=== PATIENT | female | born 1955 | race Caucasian/White ===

== ENCOUNTER 2019-04-18 09:23 | Emergency (ER) | payer OTHER, SELFPAY ==
--- NOTE | ~2019-04-18 | CT_ITS ---
EXAMINATION: CT abdomen pelvis w con EXAM DATE: 04/18/2019 10:27 INDICATION: Abdominal pain, history of gastroparesis. TECHNIQUE: Spiral CT of the abdomen and pelvis was performed following intravenous injection of 100 m L Omnipaque 350. Axial, coronal and sagittal images were reviewed. The dose-length product (DLP) fo r this examination was 1004.23 mGy-cm. The exposure was tailored according to patient size (auto mA exposure control), and iterative reconstruction (ASIR) was used as additional dose reduction techniqu e. Comparison is made to prior examination from 02/16/2018. FINDINGS: Small bilateral adrenal adenomas, largest on the left side measuring 1.2 cm. Liver, spleen, pancreas are unremarkable. There are cholecystectomy clips. Portal and splenic veins are patent. Kidneys enhance symmetrically. There is no hydronephrosis. The uterus is anteverted and morphologi dia normal. The bladder is unremarkable. There is no retroperitoneal or pelvic lymphadenopathy. There is moderate scattered arteriosclerotic disease. The appendix is normal. There is a duodenal diverticula measuring about 2 cm. There is expected jed unt of colonic stool. Rectosigmoid anastomosis. No free intraperitoneal gas. The heart is normal in size. There are no pericardial or pleural effusions. The lung bases are unremarkable. There are n o osteoblastic or osteolytic lesions identified. IMPRESSION: 1. No acute intra-abdominal findings. 2. Adrenal adenomas. 3. Rectosigmoid anastomosis. 4. Small duodenal diverticulum. Reviewed, dictated and finalized at location B. SHOP MANAGER
[2019-04-18 09:35] VITALS: BP 166/71; PULSE 86; RESP 16; TEMP 36.9; O2SAT 98
--- NOTE | 2019-04-18 09:41 | ECG_ITS ---
Measurements Intervals [place] Rate: 95 P: 76 NM: 135 QRS: 55 QRSD: 90 T: 55 QT: 355 QTc: 447 Interpretive Statements SINUS RHYTHM NORMAL ECG Electronically Signed On 04-18-2019 9:56:37 GRAIN PROCESSOR by Jesse Sanchez D.O.
[2019-04-18 09:59] LABS: Basophils Absolute Auto 0.1 K/mm3 (0.0-0.1); Basophils Percent Auto 1.3 % (0.2-1.2); Eosinophils Absolute Auto 0.1 K/mm3 (0-0.3); Eosinophils Percent Auto 1.4 % (0-4.4); Hematocrit 25.6 % (37.0-47.0); Hemoglobin 7.4 g/dL (12.0-15.0); Immature Granulocyte Absolute 0.05 K/mm3 (0.00-0.031); Immature Granulocyte Percent A 0.5 % (0-0.5); Lymphocytes Absolute Auto 0.98 K/mm3 (0.9-3.2); Lymphocytes Percent Auto 10.3 % (18.3-44.2); Mean Corpuscular HGB Conc 28.9 g/dl (32-36); Mean Corpuscular Hemoglobin 23.4 pg (26-34); Mean Platelet Volume 12.1 fl (7.4-10.4); Monocytes Absolute Auto 0.8 K/mm3 (0.1-0.6); Monocytes Percent Auto 8.4 % (2.6-8.5); Neutrophils Absolute Auto 7.5 K/mm3 (1.3-6.7); Neutrophils Percent Auto 78.1 % (45.5-73.1); Platelet Count Result 285 k/mm3 (150-375); Red Blood Count 3.16 M/mm3 (4.2-5.4); Red Cell Distribution Width 18.7 % (11.5-14.5); White Blood Count 9.6 K/mm3 (4.5-10.0)
[2019-04-18 10:10] LABS: Alanine Aminotransferase 18 U/L (4-35); Albumin Level 4.7 g/dL (3.5-5.1); Alkaline Phosphatase 84 U/L (38-126); Aspartate Amino Transferase 20 U/L (14-36); Bilirubin,Total 0.3 mg/dL (0.2-1.3); Blood Urea Nitrogen 12 mg/dL (7-17); Calcium 9.4 mg/dL (8.4-10.2); Carbon Dioxide 17 mmol/L (22-30); Chloride 103 mmol/L (98-107); Estimated Glomerular Filt Rate 50; Glucose 147 mg/dL (65-105); Lipase 165 U/L (23-300); Potassium 4.5 mmol/L (3.4-5.0); Sodium 137 mmol/L (137-145)
--- NOTE | 2019-04-18 10:11 | ED.GENADULT ---
HPI - General Adult General Chief complaint: Unspecified Stated complaint: Multiple complaints Time Seen by Provider: 04/18/19 09:56 Source: patient Mode of arrival: ambulatory Limitations: no limitations History of Present Illness HPI narrative: Patient is a 63-year-old female who presents to emergency department for evaluation of upper abdominal pain that began today noting severe aching pain that radiates into back between the scapula patient notes constant aching pain worse with activity has had similar occurrences in the past with no obvious etiology. Patient has had upper endoscopic and is followed by gastroenterology and has been told she has gastroparesis. Patient notes that this exacerbation is been worse and notes that the pain is worse she has nausea but denies emesis. Patient notes 1 loose stool today. Patient not taking anything for her symptoms and on arrival is tearful in the room. Related Data Home Medications Medication Instructions Recorded Confirmed alprazolam 0.25 mg tablet 0.25 mg PO BID 02/11/19 02/12/19 ferrous sulfate 325 mg (65 mg 325 mg PO TID 02/11/19 02/12/19 iron) tablet levothyroxine 100 mcg tablet 100 mcg PO DAILY 02/11/19 02/11/19 levothyroxine 125 mcg tablet 125 mcg PO DAILY 02/11/19 02/11/19 loratadine 10 mg tablet 10 mg PO DAILY 02/11/19 02/11/19 triamterene 37.5 1 tablet PO QAM 02/11/19 02/11/19 mg-hydrochlorothiazide 25 mg tablet Allergies Allergy/AdvReac Type Severity Reaction Status Date / Time strawberry Allergy Unknown Rash Verified 04/18/19 10:20 Review of Systems Review of Systems: Narrative: CONSTITUTIONAL: Denies fever, chills, or sweats. EYES: Denies redness, or discharge. ENT: Denies rhinorrhea, congestion, sore throat, or otalgia. CARDIOVASCULAR: Denies chest pain, palpitations, or edema. RESPIRATORY: Denies cough or dyspnea. GASTROINTESTINAL: Patient notes rectal bleeding but notes that it is chronic and unchanged. GENITOURINARY: Denies dysuria or hematuria. SKIN: Denies rash or itching. MUSCULOSKELETAL: Denies positive for myalgias NEUROLOGIC: Denies headache, dizziness, or weakness. PSYCHIATRIC: Positive for anxiety PMFSH Past Medical History Medical History (Updated 04/18/19 @ 12:21 by Diego Galindo PA-C) Anxiety Depression Gastroparesis Hyperlipidemia Hypertension Surgical History Surgical History (Updated 04/18/19 @ 10:20 by Diego Galindo PA-C) History of bowel resection History of colonoscopy History of endoscopy Family History Family History Mother Diabetes mellitus Hypertension Family history of lung cancer, Onset Age: 85 Patient's mother is Family history of type 2 diabetes mellitus Sibling Diabetes mellitus Family history of suicide Father Family history of malignant neoplasm of esophagus, Onset Age: 80 Patient's father is Other Depression Social History Social History Smoking status: Former smoker Second hand tobacco smoke exposure: No Smoking end date: 03/23/07 Alcohol intake: never Exam Narrative: Exam Narrative: GENERAL: Well-appearing, well-nourished, tearful HEAD: Normocephalic, atraumatic. EYES: PERRLA and EOMI. ENT: Nares clear, no rhinorrhea or epistaxis. Mucous membranes moist. Oropharynx without tonsillar hypertrophy exudate or other lesions. CHEST: Clear to auscultation. No respiratory distress. No wheezes rales or rhonchi HEART: Regular rate and rhythm. No murmur heard. Normal peripheral pulses. ABDOMEN: Soft, tenderness throughout the abdomen worse in the upper quadrants specifically the epigastrium, nondistended EXTREMITIES: Normal range of motion. No edema. SKIN: Warm, dry, no rash. NEURO: No focal deficits. Alert and oriented x3. Cranial nerves II through XII grossly intact PSYCH: Normal mood and affect. Course Course E
[2019-04-18 10:23] LABS: Hypochromasia 1+ (NORMAL); Ovalocytes 1+ (NORMAL); Platelet Estimate Adequate (Adequate); Poikilocytosis 1+ (NORMAL)
[2019-04-18] MEDS: LACTATED RINGERS 1,000 ML 999 ML IV CONT (10:40)
[2019-04-18] MEDS: FAMOTIDINE 20 MG/2 ML VIAL IV PUSH (10:42)
[2019-04-18] MEDS: LORAZEPAM INJ 2 MG/ML VIAL 1 MG IV PUSH (10:47)
[2019-04-18 11:31] LABS: Lactic Acid Reflex 1.7 mmol/L (0.7-2.1)
[2019-04-18 11:58] VITALS: BP 157/59; PULSE 80
[2019-04-18 11:59] VITALS: BP 167/75; BP 179/68; PULSE 85; PULSE 87
[2019-04-18 12:56] LABS: Add Urine Microscopic? YES; Appearance Urine Clear (Clear); Bacteria Urine Trace /hpf; Bilirubin Urine Negative (Negative); Blood Urine Negative (Negative); Color Urine Yellow (Yellow); Glucose Urine UA Negative (Negative); Ketones Urine Trace mg/dL (Negative); Leukocyte Esterase Ur Negative LEU/UL (Negative); Nitrate Urine Negative (Negative); Protein Urine 1+ mg/dL (Negative); RBC Urine 0-2 /hpf (0-2); Squamous Epithelial Cell Urine Many /hpf (Few); Urobilinogen Urine Negative mg/dL (<2.0); WBC Urine 0-3 /hpf
[2019-04-18 13:00] LABS: Specific Grav Ur > 1.060 (1.001-1.035)
[2019-04-18 13:40] VITALS: BP 150/92; PULSE 80; RESP 16; O2SAT 97
[2019-04-18] MEDS: HYOSCYAMINE SULFATE 0.125 MG TABLET PO (13:41)
--- NOTE | 2019-04-26 12:09 | PC.NURSE ---
100ML OF OFIRMEV INFUSED AT 1100 AND 1000MLS OF LR INFUSED AT 1145 ON APR 18 2019
== END 2019-04-18 13:40 | disposition home or self-care (01) ==
PROVIDERS: Emergency Medicine Emergency Medical Services; Emergency Provider Emergency Medicine; PCP Internal Medicine
DX: R10.10 Upper abdominal pain, unspecified (principal); D64.9 Anemia, unspecified; F41.9 Anxiety disorder, unspecified; F32.9 Major depressive disorder, single episode, unspecified; E78.5 Hyperlipidemia, unspecified; I10 Essential (primary) hypertension; K31.84 Gastroparesis; Z90.49 Acquired absence of other specified parts of digestive tract; Z87.891 Personal history of nicotine dependence; D35.02 Benign neoplasm of left adrenal gland; D35.01 Benign neoplasm of right adrenal gland
CPT/HCPCS: 36415; 74177; 80053; 81001; 83605; 83690; 85025; 86850; 86900; 86901; 93005; 96361; 96365; 96375; 99284; A9270; J0131; J2060; J7120; Q9967

== ENCOUNTER 2019-08-30 11:08 | Outpatient (CLI) | payer OTHER, SELFPAY ==
--- NOTE | ~2019-08-30 | US_ITS ---
EXAMINATION: US carotid duplex BI DATE: 08/30/2019 11:38 INDICATION: Carotid bruit TECHNIQUE: Grayscale, color Doppler, and pulsed Doppler images of the cervical carotid arteries were obtained. The degree of vessel stenosis is placed in one of the following categories: normal, <50%, 5 0-69%, >=70% but less than near-occlusion, near-occlusion, or total occlusion. Note that percent sten osis relative to normal distal artery lumen diameter is indirectly measured from velocity measurement s as described by Mt, et al. Radiology 2003; 229:340-346. Notes: Normal: Peak systolic velocity <125 centimeters/sec and no plaque <50%. Peak systolic velocity <125 ( EDV <40; ICA/CCA PSV ratio <2.0; used these factors only a tandem lesions or low cardiac output or co ntralateral disease) 50-69 %: PSV 125-230 (EDV 40-100; ratio 2-4) >= 70% but less than near occlusion: PSV greater than 230 (EDV > 100; ratio> 4.0) Near Occlusion: PSV that is variable; markedly narrowed lumen Occlusion: Absent flow on color/spectral Doppler and no lumen on cruz scale. COMPARISON: None. FINDINGS: RIGHT: The right common carotid artery (CCA) peak systolic velocity (PSV) is 99 cm/s. The right internal car otid artery (ICA) PSV is 131 cm/s. The right ICA end-diastolic velocity (EDV) is 28 cm/s. The right I CA/CCA PSV ratio is 1.3. The external carotid artery (ECA) PSV is 73 cm/s. There is antegrade flow in the right vertebral artery. LEFT: The left CCA PSV is 131 cm/s. The left ICA PSV is 138 cm/s. The left ICA EDV is 42 cm/s. The left ICA /CCA PSV ratio is 1.1. The ECA PSV is 95 cm/s. There is antegrade flow in the left vertebral artery. IMPRESSION: 1. 50-69% stenosis in the right internal carotid artery by sonographic criteria. 2. 50-69% stenosis in the left internal carotid artery by sonographic criteria. Reviewed, dictated and finalized at location A. IMPRESSION: 1. 50-69% stenosis in the right internal carotid artery by sonographic criteria . 2. 50-69% stenosis in the left internal carotid artery by sonographic criteria.
== END 2019-08-30 11:09 | disposition home or self-care (01) ==
PROVIDERS: PCP Internal Medicine; Visit Provider Internal Medicine
DX: R09.89 Other specified symptoms and signs involving the circulatory and respiratory systems (principal); I65.23 Occlusion and stenosis of bilateral carotid arteries
CPT/HCPCS: 93880

== ENCOUNTER 2019-10-18 22:37 | Inpatient (IN) | payer OTHER, SELFPAY ==
[2019-10-18 22:39] VITALS: BP 110/96; PULSE 75; RESP 29; TEMP 37; O2SAT 100
[2019-10-18 22:45] VITALS: PULSE 77
--- NOTE | 2019-10-18 22:59 | PC.NURSE ---
Pt does not give a specific area where she hurts just continues to state she hurts everywhere. The Pt is constantly moving all around bed and has left leg bent up while holding knee. Pt states shes been losing her balance lately and finding it hard to ambulate these last few months. Pt states shes been hurting since [place] but couldn't bare the pain anymore as of today, thus calling EMS.
--- NOTE | 2019-10-18 23:09 | ED.GENADULT ---
HPI - General Adult General Chief complaint: Unspecified Stated complaint: pain all over Time Seen by Provider: 10/18/19 22:51 History of Present Illness HPI narrative: History limited by poor historian She reports pain all over since February. She is not able to localize the pain. She does say that her legs are restless. She is scheduled to have imaging done tomorrow to further evaluate her pain. She says that she has not eaten in 5 days. She denies weakness, numbness, fever, vomiting, chest pain, SOB, dizziness, dark stools. Related Data Home Medications Medication Instructions Recorded Confirmed ferrous sulfate 325 mg (65 mg 325 mg PO TID 02/11/19 09/12/19 iron) tablet levothyroxine 100 mcg tablet 100 mcg PO DAILY 02/11/19 09/12/19 levothyroxine 125 mcg tablet 125 mcg PO DAILY 02/11/19 09/12/19 loratadine 10 mg tablet 10 mg PO DAILY 02/11/19 09/12/19 triamterene 37.5 1 tablet PO QAM 02/11/19 09/12/19 mg-hydrochlorothiazide 25 mg tablet aspirin 81 mg tablet,delayed 81 mg PO DAILY 08/31/19 09/12/19 release Allergies Allergy/AdvReac Type Severity Reaction Status Date / Time strawberry Allergy Unknown Rash Verified 04/18/19 10:20 Review of Systems Review of Systems: All systems reviewed & are unremarkable except as noted in HPI and below PMFSH Past Medical History Medical History Anxiety Depression Gastroparesis Hyperlipidemia Hypertension Surgical History Surgical History History of bowel resection History of colonoscopy History of endoscopy Family History Family History Mother Diabetes mellitus Hypertension Family history of lung cancer, Onset Age: 85 Patient's mother is Family history of type 2 diabetes mellitus Sibling Diabetes mellitus Family history of suicide Father Family history of malignant neoplasm of esophagus, Onset Age: 80 Patient's father is Other Depression Social History Social History Smoking status: Former smoker Second hand tobacco smoke exposure: No Smoking end date: 03/23/07 Alcohol intake: never Gender identity (if verbalized by the patient): Female Exam Const: General: alert and ill appearing Orientation/consciousness: patient oriented x3 Other: lethargic HENMT: Mouth: Yes dry mucous membranes Eyes: Conjunctivae: conjunctivae normal Pupils: Equal, round and reactive pupils present EOM: EOMs intact bilaterally Resp: Effort & Inspection: normal respiratory effort Auscultation: clear to auscultation bilaterally Cardio: Rate: regular rate Rhythm: regular rhythm GI: GI Palp: Yes Soft to palpation and No Tenderness to palpation present (GI) Skin: General skin exam: pallor Neuro: General: patient oriented x3, moves all extremities, no focal motor deficits and CN's II-XI intact bilaterally Speech: normal speech Extrem: General: no edema Psych: Affect: Anxious affect present Course Vital Signs Vital signs: Vital Signs Temperature 37.0 C 10/18/19 22:39 Pulse Rate 75 10/18/19 22:39 Respiratory Rate 29 H 10/18/19 22:39 Blood Pressure 110/96 H 10/18/19 22:39 Pulse Oximetry 100 10/18/19 22:39 Temperature 36.4 C L 10/19/19 02:39 Pulse Rate 74 10/19/19 02:39 Respiratory Rate 14 10/19/19 02:39 Blood Pressure 97/63 L 10/19/19 02:39 Pulse Oximetry 99 10/19/19 02:39 Medical Decision Making MDM Narrative Medical decision making narrative: She has nonspecific pain complaints. Very pale on exam. She has history of anemia. She does not know why she was anemic in he past. Denies GI bleed Discussed case with Dr. White. He will see her in the morning Medical Records Medical records reviewed: Yes I reviewed the patient's medical records. Edith
[2019-10-18 23:34] LABS: Basophils Percent Auto 0.2 % (0.2-1.2); Eosinophils Percent Auto 0.4 % (0-4.4); Immature Granulocyte Absolute 0.05 K/mm3 (0.00-0.031); Immature Platelet Fraction Pct 10.7 % (0.9-11.2); Lymphocytes Absolute Auto 0.97 K/mm3 (0.9-3.2); Lymphocytes Percent Auto 18.4 % (18.3-44.2); Mean Corpuscular HGB Conc 24.7 g/dl (32-36); Mean Corpuscular Volume 73.2 fl (80-100); Monocytes Absolute Auto 0.8 K/mm3 (0.1-0.6); Monocytes Percent Auto 15.8 % (2.6-8.5); Neutrophils Absolute Auto 3.4 K/mm3 (1.3-6.7); Neutrophils Percent Auto 64.2 % (45.5-73.1); Nucleated Red Blood Cells Absolute Auto 0.1 K/mm3 (0.0-0.012); Nucleated Red Blood Cells Perc 1.1 % (0.0-0.2); Platelet Count Result 242 k/mm3 (150-375); Red Blood Count 2.05 M/mm3 (4.2-5.4); Red Cell Distribution Width 24.2 % (11.5-14.5); White Blood Count 5.3 K/mm3 (4.5-10.0)
[2019-10-18 23:43] LABS: Ethanol < 10 mg/dL (<10); Hemoglobin 3.7 g/dL (12.0-15.0)
[2019-10-18 23:44] LABS: Hypochromasia 2+ (NORMAL); Ovalocytes 1+ (NORMAL); Platelet Estimate Adequate (Adequate); Target Cells 1+ (NORMAL)
[2019-10-18 23:45] LABS: Alanine Aminotransferase 31 U/L (4-35); Albumin Level 3.9 g/dL (3.5-5.1); Alkaline Phosphatase 80 U/L (38-126); Anion Gap 27.2 mmol/L (7-16); Aspartate Amino Transferase 49 U/L (14-36); Bilirubin,Total 0.8 mg/dL (0.2-1.3); Blood Urea Nitrogen 19 mg/dL (7-17); Calcium 8.6 mg/dL (8.4-10.2); Carbon Dioxide 10 mmol/L (22-30); Chloride 99 mmol/L (98-107); Creatine Kinase 406 U/L (30-135); Estimated CRCL calculation 37 ml/min; Estimated Glomerular Filt Rate 35; Glucose 107 mg/dL (65-105); Potassium 4.2 mmol/L (3.4-5.0); Sodium 132 mmol/L (137-145)
[2019-10-19] VITALS (35 sets, daily range): BP systolic 88–142; BP diastolic 35–78; PULSE 57–78; RESP 14–26; TEMP 36.2–37; O2SAT 94–100; BMI 30.9
[2019-10-19 00:04] LABS: Immature Reticulocyte Fraction 32.8 % (3.0-15.9); Reticulocyte Hemoglobin Conten 17.1 pg (28.2-35.7); Reticulocyte Percent 3.49 % (0.7-4.3); Reticulocytes Absolute 0.07 B/L (32.2-175.7)
[2019-10-19] MEDS: SODIUM CHLORIDE 0.9% IV 1,000 ML 999 ML IV CONT (00:07)
[2019-10-19 00:26] LABS: Iron 22 ug/dL (37-170)
[2019-10-19 00:35] LABS: Percent Iron Saturation 5 % (20-50)
[2019-10-19] MEDS: KETAMINE HCL 500 MG/10 ML VIAL 10 MG IV PUSH (00:37)
--- NOTE | 2019-10-19 00:56 | PC.NURSE ---
Blood pressure dropped into 80s over 60s, this nurse held fentanyl, made aware and given new orders.
[2019-10-19 01:15] LABS: Folic Acid 14.4 ng/mL (2.76->20); Vitamin B12 > 1000.0 pg/mL (239-931)
[2019-10-19] MEDS: SODIUM CHLORIDE 0.9% IV 250 ML 30 ML IV CONT ×2 (01:28→12:57)
--- NOTE | 2019-10-19 01:45 | PC.NURSE ---
Pt resting in room currently receiving blood due to low H&H, tolerating transfusion well. Vitals documented and stable.
--- NOTE | 2019-10-19 03:30 | ADMGEN ---
This patient, Nichole Olivares, was admitted to IMU Room 207-01. Patient/family oriented to hospital policies and general routines including ID bracelet, bed and alarms, visiting hours, pain management, procedures, bathroom and other care routines, personal items, smoking policy, room service/diet, and visiting hours. Valuables list has been completed. Information on how to activate the Rapid Response Team has been discussed. Patient/Family are encouraged to report perceived risks to care and to ask questions if they do not understand what they are told or what they should do.
--- NOTE | 2019-10-19 03:58 | PC.NURSE ---
Pt transferred to floor by this RN with blood transfusion hanging to gravity. Pt had no reaction to transfusion and was monitored entire time. Pt BP was 123/51 once arriving to IMU.
[2019-10-19] MEDS: TUBING, BLOOD PLUM PUMP TUBING 1 EACH XX ×2 (07:40→12:42)
[2019-10-19 09:17] LABS: Amphetamine Screen Urine Negative (Negative); Barbiturate Screen Urine Negative (Negative); Benzodiazepines Screen Urine Positive (Negative); Cannabinoid Screen Urine Positive (Negative); Cocaine Screen Urine Negative (Negative); Methadone Screen Urine Negative (Negative); Opiate Screen Urine Negative (Negative); Phencyclidine Screen Urine Negative (Negative)
[2019-10-19 09:38] LABS: Hematocrit 24.4 % (37.0-47.0); Hemoglobin 7.3 g/dL (12.0-15.0)
--- NOTE | 2019-10-19 10:51 | WPDGICN ---
Assessment and Plan Assessment and plan (1) MEY (iron deficiency anemia): Code(s): D50.9 - Iron deficiency anemia, unspecified Status: Acute Assessment and Plan: patient has profound anemia with iron deficient indices. No obvious signs of GI blood loss. Plan is to guaiac stools. Transfuse to a stable hemoglobin. Colonoscopy an EGD will be repeated in the morning. If this is not fruitful then small bowel series will be required. Hematology follow-up if GI studies initially negative. Will follow with you. (2) Obesity: Qualifiers: Obesity type: due to excess calories Obesity classification: adult class 1 (BMI 30 - 34.9) Serious obesity comorbidity presence: without serious comorbidity Body mass index: BMI 34.0-34.9 Qualified Code(s): E66.09 - Other obesity due to excess calories; Z68.34 - Body mass index (BMI) 34.0-34.9, adult Code(s): E66.9 - Obesity, unspecified Status: Acute (3) Diaz's esophagus with dysplasia: Code(s): K22.719 - Diaz's esophagus with dysplasia, unspecified Status: Acute Assessment and Plan: Patient known to have Diaz's esophagus. Plan is to monitor by EGD which will be accomplished in the morning. Rosalino be every 3 years has been accomplished in the past and will be continued to be required in the future. (4) Bipolar 1 disorder: Code(s): F31.9 - Bipolar disorder, unspecified Status: Acute (5) GERD without esophagitis: Code(s): K21.9 - Gastro-esophageal reflux disease without esophagitis Status: Acute (6) History of colon cancer: Code(s): Z85.038 - Personal history of other malignant neoplasm of large intestine Status: Acute Assessment and Plan: Colon cancer resected in 1998 felt to be cured. Will be re-evaluated by colonoscopy in the morning because of anemia. GI Consult Note Consult date/time: 10/19/19 10:51 HPI: Nichole Olivares is a 64 year old female seen in evaluation at the request of the emergency room, I am asked to see the patient because rather profound anemia and iron deficient indices. Patient states that she was in her usual state of health however over the last week has developed wrist severe pain in her legs. This progressed to the point she went to the emergency room last evening this is improved after overnight treatment. Patient was found to be profoundly anemic with a hemoglobin of 3.7. patient denies any obvious signs of GI blood loss. She states her bowel habits remain normal. She denies any bruising. She has had no nose bleeds. She notes no blood in her urine. Her family history is noncontributory. Past medical history is significant for colon cancer resected in 1998. She has had previous bouts of iron deficiency. In 2018 had significant bleeding from hemorrhoids. Previous endoscopy includes a finding of Diaz's esophagus most recently 2019. She has a concomitant hiatal hernia is felt to have underlying acid reflux disease currently she has no heartburn. She states at 1 point had a small bowel capsule study that was unremarkable. Family history is noncontributory is no known history of colon or rectal disease. Review of Systems Review of Systems: All systems reviewed & are unremarkable except as noted in HPI and below PMFSH Past Medical History Medical History Anxiety Depression Gastroparesis Hyperlipidemia Hypertension Surgical History Surgical History History of bowel resection History of colonoscopy History of endoscopy Family History Family History Mother Diabetes mellitus Hypertension Family history of lung cancer, Onset Age: 85 Patient's mother is Family history of type 2 diabetes mellitus Sibling Diabetes mellitus Family history of suicide Fa
[2019-10-19] MEDS: PEG (High)/E-LYTE SOLN 4,000 ML BTL 4000 ML PO (11:14)
[2019-10-19] MEDS: FERROUS SULFATE 324 MG TABLET PO ×2 (13:28→16:51)
[2019-10-19 13:43] LABS: Add Urine Microscopic? YES; Appearance Urine Clear (Clear); Bilirubin Urine Negative (Negative); Blood Urine Negative (Negative); Color Urine Yellow (Yellow); Glucose Urine UA Negative (Negative); Hyaline Casts Urine 20-29 /lpf; Ketones Urine Negative (Negative); Leukocyte Esterase Ur Negative LEU/UL (Negative); Mucus Urine Rare /lpf; Nitrate Urine Negative (Negative); Protein Urine Negative (Negative); RBC Urine 0-2 /hpf (0-2); Squamous Epithelial Cell Urine Few /hpf (Few)
[2019-10-19 13:53] LABS: Immunochemical Fecal Occult Bl Negative (N)
[2019-10-19 13:54] LABS: IFOB Positive Control Positive
--- NOTE | 2019-10-19 15:30 | PM.IMHP ---
H&P: HPI History of Present Illness Chief complaint: iron deficiency anemia Narrative: Nichole Olivares is a 64 year old female admitted with low hb, pt denies any rectal bleeding or hematemesis. 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 pt felt ill and felt her body was weak, weaknes in her thigh muscles. pt has a history of gastropearesis. pt was a previous smoker quit in 2007. pt takes toradol and ibuprofen for pain. pt denies any abdominal pain but does get constipation at times. pt has history of depression barretes and gastropesis Review of Systems Review of Systems: All systems reviewed & are unremarkable except as noted in HPI and below ROS unobtainable: Yes other (muscle weakness, ill feeling weakness all over ) COUNTS INCLUDE 234 BEDS AT THE [facility] Family History Family History Mother Diabetes mellitus Hypertension Family history of lung cancer, Onset Age: 85 Patient's mother is Family history of type 2 diabetes mellitus Sibling Diabetes mellitus Family history of suicide Father Family history of malignant neoplasm of esophagus, Onset Age: 80 Patient's father is Other Depression Social History Social History Smoking status: Former smoker Tobacco type: cigarettes Second hand tobacco smoke exposure: No Smoking end date: 03/23/07 Alcohol intake: never Substance use: never Substance use type: does not use Gender identity (if verbalized by the patient): Female Spiritual care concerns: No Meds Home Medications and Allergies Home Medications Medication Instructions Recorded Confirmed Type fluoxetine 20 mg tablet 20 mg PO DAILY #90 tablet 02/10/19 10/19/19 Rx ferrous sulfate 325 mg (65 mg 325 mg PO TID 02/11/19 10/19/19 History iron) tablet loratadine 10 mg tablet 10 mg PO DAILY PRN 02/11/19 10/19/19 History lovastatin 40 mg tablet 40 mg PO QPM #90 tablet 02/11/19 10/19/19 Rx Women's Multivitamin 1 tablet PO DAILY 10/19/19 10/19/19 History ascorbic acid (vitamin C) [Vitamin 500 mg PO DAILY 10/19/19 10/19/19 History C] calcium carbonate-vitamin D3 1 tablet PO DAILY 10/19/19 10/19/19 History [Calcium 600 + D(3)] escitalopram oxalate 10 mg PO DAILY 10/19/19 10/19/19 History lamotrigine [Lamictal] 75 mg PO BID 10/19/19 10/19/19 History lisinopril 10 mg PO QPM 10/19/19 10/19/19 History zolpidem 5 mg PO HS PRN 10/19/19 10/19/19 History pantoprazole 40 mg PO Q12HR 30 Days #60 tablet 10/21/19 Rx Allergies Allergy/AdvReac Type Severity Reaction Status Date / Time strawberry Allergy Unknown Rash Verified 10/21/19 10:29 Vital Signs Vital Signs - 24 hr 10/18/19 22:39 10/18/19 22:45 10/19/19 00:02 Temperature 37.0 C Pulse Rate 75 77 74 Respiratory Rate 29 H 26 H Blood Pressure 110/96 H 88/54 L Pulse Oximetry 100 100 10/19/19 00:58 10/19/19 01:21 10/19/19 01:39 Temperature 36.6 C 36.3 C L Pulse Rate 78 73 69 Respiratory Rate 22 H 21 H 16 Blood Pressure 101/78 113/65 103/53 L Pulse Oximetry 99 97 96 10/19/19 01:40 10/19/19 02:39 10/19/19 03:11 Temperature 36.4 C L Pulse Rate 69 74 66 Respiratory Rate 18 14 Blood Pressure 103/53 L 97/63 L Pulse Oximetry 94 99 10/19/19 03:17 10/19/19 03:39 10/19/19 03:49 Temperature 36.5 C 36.5 C 36.4 C Pulse Rate 65 65 72 Respiratory Rate 20 20 21 H Blood Pressure 106/39 L 106/39 L 97/63 L Pulse Oximetry 99 98 99 10/19/19 03:59 10/19/19 04:00 10/19/19 04:15 Temperature 36.2 C L 36.2 C L Pulse Rate 63 61 63 Respiratory Rate 20 20 Blood Pressure 117/58 L 99/45 L Pulse Oximetry 99 98 10/19/19 05:15 10/19/19 06:00 10/19/19 06:15 Temperature 36.6 C 36.3 C L Pulse Rate 61 59 L 62 Respiratory Rate 20 20 Blood Pressure 101/46 L 112/45 L Pulse Oximetry 97 98 10/19/19 06:26 10/19/19 06:40 10/19/19 07:40 Temperature 36.3 C L 36.4 C L 36.
[2019-10-19] MEDS: lamoTRIgine 25 MG TABLET 75 MG PO (16:51)
[2019-10-19] MEDS: PANTOPRAZOLE 40 MG TABLET PO (16:52)
[2019-10-19 19:27] LABS: Hemoglobin 9.4 g/dL (12.0-15.0)
[2019-10-19 19:42] LABS: Anion Gap 17.5 mmol/L (7-16); Blood Urea Nitrogen 15 mg/dL (7-17); Calcium 8.4 mg/dL (8.4-10.2); Carbon Dioxide 16 mmol/L (22-30); Chloride 101 mmol/L (98-107); Estimated CRCL calculation 68 ml/min; Estimated Glomerular Filt Rate > 60; Glucose 109 mg/dL (65-105); Potassium 3.5 mmol/L (3.4-5.0); Sodium 131 mmol/L (137-145)
[2019-10-19] MEDS: POTASSIUM CHLORIDE 20 MEQ TABLET PO (21:14)
[2019-10-20] VITALS (15 sets, daily range): BP systolic 115–158; BP diastolic 40–74; PULSE 68–82; RESP 20–24; TEMP 36.1–37.7; O2SAT 94–99
[2019-10-20 01:21] LABS: Hematocrit 27.7 % (37.0-47.0); Hemoglobin 8.7 g/dL (12.0-15.0)
--- NOTE | 2019-10-20 07:16 | WPDGIPROGNO ---
Progress Note: A&P Additional Plan Patient comfortable this morning. Unable to tolerate preparation for colonoscopy. She reports no obvious bleeding. Denies abdominal pain. Back pain noted on presentation has improved. Physical exam reveals patient to be alert. Vital signs are stable. Lungs are clear. Heart without murmur. Abdomen bowel sounds are present soft nontender with no organomegaly. Labs reveal stool to be Hemoccult negative. Hemoglobin 8.7 after transfusion. Iron indices are consistent with iron deficiency. Impression 1. Profound microcytic anemia iron deficient anemia by iron indices. Plan is for EGD today. Colonoscopy tomorrow with alternate prep today. 2. History of Diaz's esophagus. History of GE reflux disease plan is to continue proton pump inhibitors. Further recommendations after endoscopy. 3. History of colon cancer.. Plan to reassess with colonoscopy tomorrow after additional preparation today. 4. Bipolar Subjective Date/time seen: 10/20/19 07:16 Objective Data Vital Signs Vital Signs: Vital Signs - 24 hr 10/19/19 07:40 10/19/19 08:00 10/19/19 08:45 Temperature 97.8 F 97.8 F 98.3 F Pulse Rate 58 L 67 57 L Respiratory Rate 18 18 16 Blood Pressure 116/48 L 116/48 L 126/54 L Pulse Oximetry 97 97 96 10/19/19 10:00 10/19/19 11:12 10/19/19 11:27 Temperature 97.7 F 97.6 F Pulse Rate 57 L 57 L 57 L Respiratory Rate 16 16 Blood Pressure 120/47 L 108/47 L Pulse Oximetry 99 96 10/19/19 11:30 10/19/19 12:00 10/19/19 12:20 Temperature 97.7 F 97.8 F 97.8 F Pulse Rate 58 L 57 L 57 L Respiratory Rate 18 18 18 Blood Pressure 120/47 L 132/64 132/64 Pulse Oximetry 99 100 100 10/19/19 13:36 10/19/19 14:00 10/19/19 16:00 Temperature 98 F 98.6 F Pulse Rate 57 L 59 L 63 Respiratory Rate 16 18 Blood Pressure 123/65 141/61 H Pulse Oximetry 100 100 10/19/19 18:00 10/19/19 18:52 10/19/19 20:00 Temperature 98.2 F Pulse Rate 70 78 76 Respiratory Rate 16 Blood Pressure 142/55 H Pulse Oximetry 98 0729/20 21:56 10/19/19 23:54 10/20/19 00:00 Temperature 97.9 F Pulse Rate 76 72 73 Respiratory Rate 20 Blood Pressure 115/43 L Pulse Oximetry 94 10/20/19 01:57 10/20/19 04:00 10/20/19 06:00 Temperature 97 F L Pulse Rate 74 71 77 Respiratory Rate 22 H Blood Pressure 131/40 L Pulse Oximetry 96 Intake/Output Intake/Output: Intake & Output 10/17/19 10/18/19 10/19/19 10/20/19 23:59 23:59 23:59 23:59 Intake Total 4081 Output Total 900 Balance 3181 Meds/Results Medications: Active Medications Generic Name Dose Route Start Last Admin Trade Name Freq PRN Reason Stop Dose Admin Amlodipine Besylate 2.5 mg 10/20/19 09:00 Norvasc PO QAM [facility] Ascorbic Acid 500 mg 10/20/19 09:00 Vitamin C PO DAILY [facility] Escitalopram Oxalate 10 mg 10/20/19 09:00 Lexapro PO DAILY INGRID Ferrous Sulfate 324 mg 10/19/19 12:00 10/19/19 16:51 Ferrous Sulfate PO 324 mg TIDWM INGRID Administration Fluoxetine HCl 20 mg 10/20/19 09:00 Prozac PO DAILY [facility] Lamotrigine 75 mg 10/19/19 17:00 10/19/19 16:51 Lamictal PO 75 mg BID INGRID Administration Pantoprazole Sodium 40 mg 10/19/19 17:00 10/19/19 16:52 Protonix PO 40 mg BID INGRID Administration Zolpidem Tartrate 5 mg 10/19/19 11:43 Ambien PO HS PRN Sleep Labs Labs: Laboratory Results - last 24 hr 10/18/19 10/19/19 10/19/19 23:54 08:06 08:44 Hgb Hct Sodium Potassium Chloride Carbon Dioxide Anion Gap BUN Creatinine Estim Creat Clear Calc Estimated GFR Glucose Calcium Urine Color Yellow Urine Appearance Clear Urine pH 5.0 Ur Specific [place] 1.020 Urine Protein Negative Urine Glucose (UA) Negative Urine Ketones Negative Ur Blood (Man) Negative Urine Nitrate Negative Urine Bilirubin Negative Urine Urobilinog
--- NOTE | 2019-10-20 09:58 | PM.IMPN ---
Progress Note: A&P Assessment and Plan (1) Anemia: Qualifiers: Anemia type: iron deficiency Iron deficiency anemia type: unspecified iron deficiency Qualified Code(s): D50.9 - Iron deficiency anemia, unspecified Code(s): D64.9 - Anemia, unspecified Status: Acute Assessment and Plan: Acute on chronic profound anemia with Hgb 3.7 on arrival now s/p 4 units packed RBC this admission. She has seen Dr Petit in the past for iron deficiency anemia. GI evaluations in the past have revealed internal hemorrhoids; some malabsorption could be playing a role given her prior anastomosis/resection from colon cancer 1998. Appreciate Dr White recommendations - plan is for EGD today and possibly colonoscopy tomorrow. Continue protonix BID and TID iron supplementation. H&H low but stable today, Medically she is stable to transfer out of IMU after endoscopy pending results. (2) Diaz's esophagus with dysplasia: Code(s): K22.719 - Diaz's esophagus with dysplasia, unspecified Status: Chronic Assessment and Plan: EGD in the past showed Diaz's esophagus. Appreciate GI recommendations. Continue protonix BID. (3) Essential hypertension: Code(s): I10 - Essential (primary) hypertension Status: Chronic Assessment and Plan: Stable, last 128/45. Lisinopril was held due to elevated creatinine. Blood pressures stable so far without it but will monitor. Continue home norvasc. (4) Chronic kidney disease, stage 3 (moderate): Code(s): N18.3 - Chronic kidney disease, stage 3 (moderate) Status: Acute Assessment and Plan: Creatinine improved today. Will monitor. (5) Obesity: Qualifiers: Body mass index: BMI 34.0-34.9 Obesity classification: adult class 1 (BMI 30 - 34.9) Obesity type: due to excess calories Serious obesity comorbidity presence: without serious comorbidity Qualified Code(s): E66.09 - Other obesity due to excess calories; Z68.34 - Body mass index (BMI) 34.0-34.9, adult Code(s): E66.9 - Obesity, unspecified Status: Chronic Assessment and Plan: Recommend lifestyle modifications for weight loss. Subjective Date/time seen: 10/20/19 09:00 Interval history: Ms. Olivares is a 64 yo F admitted for profound anemia. She reports feeling a little better today. Poor appetite, and has not really been eating or drinking lately. She reports she was not really able to tolerate the colonoscopy prep yesterday and had nausea and vomiting. BMs this morning were loose and brown but not clear, per patient. She reports some heartburn but denies chest pain or shortness of breath. No nausea or vomiting today. She reports she often sees red blood with BMs/wiping which she attributes to hemorrhoids. Review of Systems Review of Systems: Narrative: Twelve systems were reviewed with pertinent positives and negatives as per HPI. Exam Narrative: Exam Narrative: General: Patient resting comfortably in bed in no acute distress. HEENT: Normocephalic, EOMI, oral mucosa moist. Cardiovascular: Rate and rhythm are regular. Respiratory: Lungs clear to auscultation in all [place]. Respirations are even and nonlabored. Tolerating room air. Abdomen: Soft, some mild diffuse tenderness to palpation without guarding, bowel sounds present, no masses palpable. Extremities: Peripheral pulses intact. No edema. Neuro: No focal neurological deficits. Speech is clear. Objective Data Vital Signs Vital Signs: Last Vital Signs Temp 100 F H 10/20/19 09:55 Pulse 70 10/20/19 09:55 Resp 20 10/20/19 09:55 BP 128/45 L 10/20/19 09:55 Pulse Ox 94 10/20/19 09:55 Intake/Output Intake/Output: Intake & Output 10/17/19 10/18/19 10/19/19 10/20/19 23:59 23:59 23:59 23:59 Intake Total 4081 Output Tota
[2019-10-20] MEDS: LACTATED RINGERS 1,000 ML 150 ML IV CONT (10:01)
--- NOTE | 2019-10-20 10:14 | WPDANESEPPF ---
Anes - Initial Pre Proc Eval Procedure: Operation Date: 10/20/19 10:00 Proposed Procedures p Esophagogastroduodenoscopy - Oseas White MD Date/Time: 10/20/19 10:14 Surgeon: SABINE Willingham Pre Op Diagnosis: iron deficiency anemia Patient Data Age: 64 Gender: F Height: 5 ft 5 in Weight: 86 kg Last Vital Signs Temp 100 F H 10/20/19 09:55 Pulse 70 10/20/19 09:55 Resp 20 10/20/19 09:55 BP 128/45 L 10/20/19 09:55 Pulse Ox 94 10/20/19 09:55 Allergies Allergy/AdvReac Type Severity Reaction Status Date / Time strawberry Allergy Unknown Rash Verified 04/18/19 10:20 Home Medications Medication Instructions Recorded Confirmed Type fluoxetine 20 mg tablet 20 mg PO DAILY #90 tablet 02/10/19 10/19/19 Rx ferrous sulfate 325 mg (65 mg 325 mg PO TID 02/11/19 10/19/19 History iron) tablet loratadine 10 mg tablet 10 mg PO DAILY PRN 02/11/19 10/19/19 History lovastatin 40 mg tablet 40 mg PO QPM #90 tablet 02/11/19 10/19/19 Rx ketorolac 10 mg tablet 10 mg PO DAILY PRN 30 Days #90 04/08/19 10/19/19 Rx tablet ascorbic acid (vitamin C) [Vitamin 500 mg PO DAILY 10/19/19 10/19/19 History C] calcium carbonate-vitamin D3 1 tablet PO DAILY 10/19/19 10/19/19 History [Calcium 600 + D(3)] escitalopram oxalate 10 mg PO DAILY 10/19/19 10/19/19 History esomeprazole magnesium 40 mg PO BID 10/19/19 10/19/19 History lamotrigine [Lamictal] 75 mg PO BID 10/19/19 10/19/19 History lisinopril 10 mg PO QPM 10/19/19 10/19/19 History ky-db-[id number]-[id number]-Ca carb-vit K 1 tablet PO DAILY 10/19/19 10/19/19 History [Women's Multivitamin] zolpidem 5 mg PO HS PRN 10/19/19 10/19/19 History Laboratory Tests 10/18/19 10/19/19 10/19/19 23:54 08:06 13:33 Hgb Hct Sodium Potassium Chloride Carbon Dioxide Anion Gap BUN Creatinine Estim Creat Clear Calc Estimated GFR Glucose Calcium Urine Color Yellow (Yellow) Urine Appearance Clear (Clear) Urine pH 5.0 (5.0-9.0) Ur Specific [place] 1.020 (1.001-1.035) Urine Protein Negative mg/dL mg/dL (Negative) Urine Glucose (UA) Negative mg/dL mg/dL (Negative) Urine Ketones Negative mg/dL mg/dL (Negative) Ur Blood (Man) Negative (Negative) Urine Nitrate Negative (Negative) Urine Bilirubin Negative (Negative) Urine Urobilinogen 2.0 mg/dL H mg/dL (<2.0) Leukocyte Esterase Rfl Negative DIANNE/UL DIANNE/UL (Negative) Urine RBC 0-2 /hpf /hpf (0-2) Urine WBC 7-9 /hpf H /hpf Ur Squamous Epith Cells Few /hpf /hpf (Few) Hyaline Casts 20-29 /lpf H /lpf (None) Urine Mucus Rare /lpf /lpf Stl Occult Blood (IFOB) Negative (N) Blood Type B Positive Antibody Screen Negative Crossmatch See Detail 10/19/19 10/19/19 10/20/19 19:22 19:22 01:11 Hgb 9.4 g/dL L g/dL 8.7 g/dL L g/dL (12.0-15.0) (12.0-15.0) Hct 30.0 % L % 27.7 % L % (37.0-47.0) (37.0-47.0) Sodium 131 mmol/L L mmol/L (137-145) Potassium 3.5 mmol/L mmol/L (3.4-5.0) Chloride 101 mmol/L mmol/L (98-107) Carbon Dioxide 16 mmol/L L mmol/L (22-30) Anion Gap 17.5 mmol/L H mmol/L (7-16) BUN 15 mg/dL mg/dL (7-17) Creatinine 0.80 mg/dL mg/dL (0.7-1.0) Estim Creat Clear Calc 68 ml/min ml/min Estimated GFR > 60 (59 - ) Glucose 109 mg/dL H mg/dL (65-105) Calcium 8.4 mg/dL mg/dL (8.4-10.2) Urine Color Urine Appearance Urine pH Ur Specific [place] Urine Protein Urine Glucose (UA) Urine Ketones Ur Blood (Ma
[2019-10-20] MEDS: BISACODYL 5 MG TABLET EC 10 MG PO ×3 (14:10→21:09)
[2019-10-20] MEDS: PANTOPRAZOLE 40 MG TABLET PO ×2 (14:12→21:09)
[2019-10-20] MEDS: FERROUS SULFATE 324 MG TABLET PO ×3 (14:12→17:26)
[2019-10-20] MEDS: amLODIPine BESYLATE 2.5 MG TABLET PO (14:13)
[2019-10-20] MEDS: ASCORBIC ACID 500 MG TABLET PO (14:13)
[2019-10-20] MEDS: FLUoxetine HCL 20 MG CAPSULE PO (14:13)
[2019-10-20] MEDS: lamoTRIgine 25 MG TABLET 75 MG PO ×2 (14:13→17:26)
[2019-10-20] MEDS: ESCITALOPRAM OXALATE 10 MG TABLET PO (14:13)
[2019-10-20] MEDS: SIMETHICONE 80 MG TAB.CHEW 160 MG PO ×2 (14:16→21:09)
[2019-10-20] MEDS: polyethylene glycoL 3350 238 GM BOTTLE PO (14:18)
--- NOTE | 2019-10-20 15:09 | PC.NURSE ---
This patient, Nichole Olivares, was received from IMU on 10/20/19 at 1509. Personal belongings list checked and signed. Patient/family oriented to unit policies and routines. Report received from HARRY Mccray.
--- NOTE | 2019-10-20 16:07 | PC.NURSE ---
Transferred Patient to room 251 @ 15:02with all belongings, Gave report to Brissa.
--- NOTE | 2019-10-20 16:08 | PC.NURSE ---
This patient, Nichole Olivares, was transferred to [[facility] ] on 10/20/19 at 1502. Personal belongings sent with patient. Belongings list checked and signed with receiving [ ]. Report given to [ Brissa]. Appropriate documentation sent with patient.
[2019-10-21] VITALS (7 sets, daily range): BP systolic 98–152; BP diastolic 44–58; PULSE 68–79; RESP 14–22; TEMP 36.4–37.3; O2SAT 93–99
[2019-10-21 05:26] LABS: Basophils Percent Auto 0.9 % (0.2-1.2); Eosinophils Absolute Auto 0.1 K/mm3 (0-0.3); Eosinophils Percent Auto 1.7 % (0-4.4); Hematocrit 28.7 % (37.0-47.0); Hemoglobin 8.9 g/dL (12.0-15.0); Immature Granulocyte Absolute 0.07 K/mm3 (0.00-0.031); Lymphocytes Absolute Auto 0.59 K/mm3 (0.9-3.2); Lymphocytes Percent Auto 17.1 % (18.3-44.2); Mean Corpuscular Hemoglobin 24.5 pg (26-34); Mean Corpuscular Volume 78.8 fl (80-100); Monocytes Absolute Auto 0.5 K/mm3 (0.1-0.6); Monocytes Percent Auto 15.4 % (2.6-8.5); Neutrophils Absolute Auto 2.2 K/mm3 (1.3-6.7); Neutrophils Percent Auto 62.9 % (45.5-73.1); Nucleated Red Blood Cells Perc 0.9 % (0.0-0.2); Platelet Count Result 141 k/mm3 (150-375); Red Blood Count 3.64 M/mm3 (4.2-5.4); Red Cell Distribution Width 22.5 % (11.5-14.5); White Blood Count 3.5 K/mm3 (4.5-10.0)
[2019-10-21 05:54] LABS: Blood Urea Nitrogen 3 mg/dL (7-17); Calcium 8.1 mg/dL (8.4-10.2); Carbon Dioxide 20 mmol/L (22-30); Chloride 104 mmol/L (98-107); Estimated CRCL calculation 76 ml/min; Estimated Glomerular Filt Rate > 60; Glucose 113 mg/dL (65-105); Magnesium 1.8 mg/dL (1.6-2.3); Sodium 131 mmol/L (137-145)
--- NOTE | 2019-10-21 07:56 | WPDANESPN ---
Anes - Prog Note Post-Op Date/Time: 10/21/19 07:56 Cardiovascular status: normal Respiratory status: normal Airway patency: baseline Mental status: baseline Post-Op hydration status: normal Vital Signs: Last Vital Signs Temp 36.7 C 10/21/19 06:00 Pulse 79 10/21/19 06:00 Resp 18 10/21/19 06:00 BP 127/48 L 10/21/19 06:00 Pulse Ox 93 10/21/19 06:00 I/O: Intake & Output 10/20/19 10/20/19 10/21/19 15:59 23:59 07:59 Intake Total 100 600 0 Output Total 450 Balance -350 600 0 Laboratory Tests 10/21/19 05:04 10/21/19 05:04 10/21/19 10/21/19 05:04 05:04 WBC 3.5 L RBC 3.64 L Hgb 8.9 L Hct 28.7 L MCV 78.8 L D MCH 24.5 L D MCHC 31.0 L RDW 22.5 H Plt Count 141 L MPV TNP Immature Gran % (Auto) 2.0 H Neut % (Auto) 62.9 Lymph % (Auto) 17.1 L [place] % (Auto) 15.4 H Eos % (Auto) 1.7 Baso % (Auto) 0.9 Lymph # (Auto) 0.59 L [place] # (Auto) 0.5 Eos # (Auto) 0.1 Baso # (Auto) 0.0 Abs Immat Gran (auto) 0.07 H Absolute Neuts (auto) 2.2 Absolute Nucleated RBC 0.0 Nucleated RBC % 0.9 H % Immature Plt Fraction 12.0 H Sodium 131 L Potassium 3.0 L Chloride 104 Carbon Dioxide 20 L Anion Gap 10.0 BUN 3 L D Creatinine 0.70 Estim Creat Clear Calc 76 Estimated GFR > 60 Glucose 113 H Calcium 8.1 L Magnesium 1.8 Microbiology 10/19/19 08:06 Urine Clean Catch Urine Culture - Final Post-procedural complaints: none Patient Feedback: Patient satisfied with anesthetic care.
--- NOTE | 2019-10-21 08:36 | WPDANESEPPF ---
Anes - Initial Pre Proc Eval Procedure: Operation Date: 10/20/19 10:00 Proposed Procedures p Esophagogastroduodenoscopy - Oseas White MD Operation Date: 10/21/19 11:00 Proposed Procedures p Colonoscopy - Oseas White MD Date/Time: 10/21/19 08:36 Surgeon: SABINE Willingham Pre Op Diagnosis: iron deficiency anemia Patient Data Age: 64 Gender: F Height: 1.65 m Weight: 85.7 kg Last Vital Signs Temp 36.7 C 10/21/19 06:00 Pulse 79 10/21/19 06:00 Resp 18 10/21/19 06:00 BP 127/48 L 10/21/19 06:00 Pulse Ox 93 10/21/19 06:00 Allergies Allergy/AdvReac Type Severity Reaction Status Date / Time strawberry Allergy Unknown Rash Verified 10/21/19 10:29 Home Medications Medication Instructions Recorded Confirmed Type fluoxetine 20 mg tablet 20 mg PO DAILY #90 tablet 02/10/19 10/19/19 Rx ferrous sulfate 325 mg (65 mg 325 mg PO TID 02/11/19 10/19/19 History iron) tablet loratadine 10 mg tablet 10 mg PO DAILY PRN 02/11/19 10/19/19 History lovastatin 40 mg tablet 40 mg PO QPM #90 tablet 02/11/19 10/19/19 Rx ketorolac 10 mg tablet 10 mg PO DAILY PRN 30 Days #90 04/08/19 10/19/19 Rx tablet ascorbic acid (vitamin C) [Vitamin 500 mg PO DAILY 10/19/19 10/19/19 History C] calcium carbonate-vitamin D3 1 tablet PO DAILY 10/19/19 10/19/19 History [Calcium 600 + D(3)] escitalopram oxalate 10 mg PO DAILY 10/19/19 10/19/19 History esomeprazole magnesium 40 mg PO BID 10/19/19 10/19/19 History lamotrigine [Lamictal] 75 mg PO BID 10/19/19 10/19/19 History lisinopril 10 mg PO QPM 10/19/19 10/19/19 History nc-[id number]-Ca carb-vit K 1 tablet PO DAILY 10/19/19 10/19/19 History [Women's Multivitamin] zolpidem 5 mg PO HS PRN 10/19/19 10/19/19 History Laboratory Tests 10/21/19 10/21/19 05:04 05:04 WBC 3.5 K/mm3 L K/mm3 (4.5-10.0) RBC 3.64 M/mm3 L M/mm3 (4.2-5.4) Hgb 8.9 g/dL L g/dL (12.0-15.0) Hct 28.7 % L % (37.0-47.0) MCV 78.8 fl L D fl (80-100) MCH 24.5 pg L D pg (26-34) MCHC 31.0 g/dl L g/dl (32-36) RDW 22.5 % H % (11.5-14.5) Plt Count 141 k/mm3 L k/mm3 (150-375) MPV TNP Immature Gran % (Auto) 2.0 % H % (0-0.5) Neut % (Auto) 62.9 % % (45.5-73.1) Lymph % (Auto) 17.1 % L % (18.3-44.2) [place] % (Auto) 15.4 % H % (2.6-8.5) Eos % (Auto) 1.7 % % (0-4.4) Baso % (Auto) 0.9 % % (0.2-1.2) Lymph # (Auto) 0.59 K/mm3 L K/mm3 (0.9-3.2) [place] # (Auto) 0.5 K/mm3 K/mm3 (0.1-0.6) Eos # (Auto) 0.1 K/mm3 K/mm3 (0-0.3) Baso # (Auto) 0.0 K/mm3 K/mm3 (0.0-0.1) Abs Immat Gran (auto) 0.07 K/mm3 H K/mm3 (0.00-0.031) Absolute Neuts (auto) 2.2 K/mm3 K/mm3 (1.3-6.7) Absolute Nucleated RBC 0.0 K/mm3 K/mm3 (0.0-0.012) Nucleated RBC % 0.9 % H % (0.0-0.2) % Immature Plt Fraction 12.0 % H % (0.9-11.2) Sodium 131 mmol/L L mmol/L (137-145) Potassium 3.0 mmol/L L mmol/L (3.4-5.0) Chloride 104 mmol/L mmol/L (98-107) Carbon Dioxide 20 mmol/L L mmol/L (22-30) Anion Gap 10.0 mmol/L mmol/L (7-16) BUN 3 mg/dL L D mg/dL (7-17) Creatinine 0.70 mg/dL mg/dL (0.7-1.0) Estim Creat Clear Calc 76 ml/min ml/min Estimated GFR > 60 (59 - ) Glucose 113 mg/dL H mg/dL (65-105) Calcium 8.1 mg/dL L mg/dL (8.4-10.2) Magnesium 1.8 mg/dL mg/dL (1.6-2.3) Patient hx anesthesia problems: none Family hx anesthesia problems: none PMFSH Family History Family History Mother Diabetes mellitus Hypertension Family history of lung cancer, Onset Age: 85 Patient's mother is Family history of type 2 diabetes mellitus Sibling Diabetes mellitus Family history of suicide Father Family history of malignant neoplasm of esophagus, On
--- NOTE | 2019-10-21 10:00 | PM.IMPN ---
Progress Note: A&P Assessment and Plan (1) Anemia: Qualifiers: Anemia type: iron deficiency Iron deficiency anemia type: unspecified iron deficiency Qualified Code(s): D50.9 - Iron deficiency anemia, unspecified Code(s): D64.9 - Anemia, unspecified Status: Acute Assessment and Plan: Acute on chronic profound anemia with Hgb 3.7 on arrival now s/p 4 units packed RBC this admission. She has seen Dr Petit in the past for iron deficiency anemia and has history of colon cancer with resection in [address]. Apprec[address] White recommendations - EGD yesterday showed hiatal hernia and reflux esophagitis. Continue protonix and iron supplementation. Colonoscopy today. (2) Diaz's esophagus with dysplasia: Code(s): K22.719 - Diaz's esophagus with dysplasia, unspecified Status: Chronic Assessment and Plan: EGD in the past showed Diaz's esophagus. EGD yesterday with erosive esophagitis. Continue protonix. (3) Essential hypertension: Code(s): I10 - Essential (primary) hypertension Status: Chronic Assessment and Plan: BPs reviewed. Lisinopril was held due to elevated creatinine but will add it back now that Cr is improved and BPs are intermittently elevated. Continue home norvasc. (4) Chronic kidney disease, stage 3 (moderate): Code(s): N18.3 - Chronic kidney disease, stage 3 (moderate) Status: Acute Assessment and Plan: Creatinine improved today. Will monitor. (5) Obesity: Qualifiers: Obesity type: due to excess calories Obesity classification: adult class 1 (BMI 30 - 34.9) Serious obesity comorbidity presence: without serious comorbidity Body mass index: BMI 34.0-34.9 Qualified Code(s): E66.09 - Other obesity due to excess calories; Z68.34 - Body mass index (BMI) 34.0-34.9, adult Code(s): E66.9 - Obesity, unspecified Status: Chronic Assessment and Plan: Recommend lifestyle modifications for weight loss. Subjective Date/time seen: 10/21/19 0945 Interval history: Ms. Olivares is a 64 yo F admitted for profound anemia. She reports feeling a bit bloated and nauseous but overall feeling better than when she came in. No vomiting. She notes bowel movements this morning have a bit of red blood. She describes she does have a history of hemorrhoids and it is not uncommon for her to notice red blood on tissue with wiping, but this morning she notes red blood in the toilet. She denies chest pain or shortness of breath. Review of Systems Review of Systems: Narrative: Twelve systems were reviewed with pertinent positives and negatives as per HPI. Exam Narrative: Exam Narrative: General: Patient resting supine in bed in no acute distress. HEENT: Normocephalic, EOMI, oral mucosa moist. Cardiovascular: Rate and rhythm are regular. Respiratory: Lungs clear to auscultation in all [place]. Respirations are even and nonlabored. Tolerating room air. Abdomen: Soft, no point tenderness to palpation, bowel sounds present, no masses palpable. Extremities: Peripheral pulses intact. No edema. Neuro: No focal neurological deficits. Speech is clear. Objective Data Vital Signs Vital Signs: Last Vital Signs Temp 99.1 F 10/21/19 10:30 Pulse 72 10/21/19 10:30 Resp 18 10/21/19 10:30 BP 152/58 H 10/21/19 10:30 Pulse Ox 97 10/21/19 10:30 Intake/Output Intake/Output: Intake & Output 10/18/19 10/19/19 10/20/19 10/21/19 23:59 23:59 23:59 23:59 Intake Total 4081 700 0 Output Total 900 450 Balance 3181 250 0 Meds/Results Medications: Active Medications Generic Name Dose Route Start Last Admin Trade Name Freq PRN Reason Stop Dose Admin Amlodipine Besylate 2.5 mg 10/20/19 09:00 10/20/19 14:13 Norvasc PO 2.5 mg QAM INGRID Administration Asc
--- NOTE | 2019-10-21 10:12 | PC.NURSE ---
Addendum entered by Mc Clarke RN 10/21/19 12:24: IV access saline locked. Potassium infusion paused. Original Note: To GI Lab per belinda, IV infusing potassium chloride. Report given to HARRY Rodriguez.
[2019-10-21] MEDS: LACTATED RINGERS 1,000 ML 150 ML IV CONT (10:34)
[2019-10-21 11:47] LABS: Glucose Point of Care 104 (65-105)
--- NOTE | 2019-10-21 12:10 | PC.NURSE ---
Returned from GI Lab. Report received from HARRY Thompson.
[2019-10-21] MEDS: PANTOPRAZOLE 40 MG TABLET PO (12:15)
[2019-10-21] MEDS: lamoTRIgine 25 MG TABLET 75 MG PO (12:15)
[2019-10-21] MEDS: ESCITALOPRAM OXALATE 10 MG TABLET PO (12:15)
[2019-10-21] MEDS: amLODIPine BESYLATE 2.5 MG TABLET PO (12:16)
[2019-10-21] MEDS: ASCORBIC ACID 500 MG TABLET PO (12:16)
[2019-10-21] MEDS: FLUoxetine HCL 20 MG CAPSULE PO (12:16)
[2019-10-21] MEDS: FERROUS SULFATE 324 MG TABLET PO (12:16)
--- NOTE | 2019-10-21 15:21 | PM.DS ---
DS: Admitting Diagnosis Admitting Diagnosis Admitting Diagnosis: Iron deficiency anemia, unspecified DS: Discharge Diagnosis Discharge Diagnosis (1) Anemia: Qualifiers: Anemia type: iron deficiency Iron deficiency anemia type: unspecified iron deficiency Qualified Code(s): D50.9 - Iron deficiency anemia, unspecified Code(s): D64.9 - Anemia, unspecified Status: Acute Assessment and Plan: Date of Service 10/21/19 Ms. Olivares is a 64yo F with history of chronic anemia, Diaz's esophagus, history of colon cancer s/p resection, hypertension, and chronic kidney disease, who presented to the ED for generalized weakness and pain. She described these symptoms began months ago and that she had been getting weaker over time. In the last few days, she was having trouble walking due to extreme fatigue. Hemglobin was 3.7on arrival. She received 4 units of packed RBC transfusion 10/18. She was seen by GI, Dr White, and underwent EGD 10/19 and colonoscopy 10/20. EGD demonstrated a hiatal hernia and reflux esophagitis. Colonoscopy demonstrated multiple large uncomplicated internal hemorrhoids in the rectum, not actively bleeding. Ultimately, it is felt the reflux esophagitis is likely contributing to anemia in addition to likely a chronic component of iron deficiency and/or malabsorption in the setting of previous colon cancer s/p resection. She was treated with BID protonix and iron supplementation, use anti-reflux measures and avoid NSAIDs. H&H remained low but stable after multiple transfusions and she was feeling improved. Hgb 8.9 on day of discharge. She was hemodynamically stable for discharge on 10/21/19 with instructions to follow a high fiber diet, follow up with PCP and Dr White. Consultations: -- GI - Dr White Acute profound on chronic anemia with Hgb 3.7 on arrival now s/p 4 units packed RBC this admission. She has seen Dr Petit in the past for iron deficiency anemia and has history of colon cancer with resection in 1998. Seen by GI- EGD showed hiatal hernia and reflux esophagitis. Colonoscopy showed internal hemorrhoids. Continue protonix and iron supplementation, anti-reflux measures. Follow up with Dr. White and may benefit from re-establishing with Dr Petit. (2) Diaz's esophagus with dysplasia: Code(s): K22.719 - Diaz's esophagus with dysplasia, unspecified Status: Chronic Assessment and Plan: EGD in the past showed Diaz's esophagus. EGD yesterday with reflux esophagitis. Continue protonix. (3) Essential hypertension: Code(s): I10 - Essential (primary) hypertension Status: Chronic Assessment and Plan: BPs reviewed. Lisinopril was held due to elevated creatinine but added back prior to discharge now that Cr is improved and BPs are intermittently elevated. Continue home norvasc. (4) Chronic kidney disease, stage 3 (moderate): Code(s): N18.3 - Chronic kidney disease, stage 3 (moderate) Status: Acute Assessment and Plan: Creatinine improved prior to discharge. (5) Obesity: Qualifiers: Obesity type: due to excess calories Obesity classification: adult class 1 (BMI 30 - 34.9) Serious obesity comorbidity presence: without serious comorbidity Body mass index: BMI 34.0-34.9 Qualified Code(s): E66.09 - Other obesity due to excess calories; Z68.34 - Body mass index (BMI) 34.0-34.9, adult Code(s): E66.9 - Obesity, unspecified Status: Chronic Assessment and Plan: Recommend lifestyle modifications for weight loss. DS: Summary Time Spent with Patient Time attestation: Total time spent providing and/or coordinating discharge services: 35 minutes Exam Narrative: Exam Narrative: General: Female resting
--- NOTE | 2019-10-21 15:35 | PCDIET ---
Nutrition Screen Complete: Pt current nutrition is High Fiber Nutrition recommendation: Agree Last recorded weight is 85.7 kg. Bowel Motility: Labs Reviewed:Glucose 113, K 3.0, Na 131 Meds Noted: Protonix, Vit C, Fe, Prozac, Ambien Additional Notes: Pt screened today due to NPO day 3. Pt has diet advanced now to high fiber. Pt is eating well with no GI complaints. No questions regarding diet. We will continue to monitor PO intake for adequacy every five days.
== END 2019-10-21 15:39 | disposition home or self-care (01) | DRG 392 ==
LOC: ANHED 22:59 → ANHIMU 10-19 02:05 → ANH2MED 10-21 07:27 → ANHIMU 10-24 15:25
PROVIDERS: Family Medicine; Internal Medicine Gastroenterology; Physician Assistant; Admitting Provider Internal Medicine; Emergency Provider Emergency Medicine; PCP Internal Medicine; Visit Provider Physician Assistant
PROC: 0DJ08ZZ Inspection of Upper Intestinal Tract, Via Natural or Artificial Opening Endoscopic (ICD-10-PCS; CPT 43235; principal; 2019-10-20 10:00)
PROC: 0DJD8ZZ Inspection of Lower Intestinal Tract, Via Natural or Artificial Opening Endoscopic (ICD-10-PCS; CPT 45378; principal; 2019-10-21 11:00)
DX: K21.0 Gastro-esophageal reflux disease with esophagitis (principal); D50.9 Iron deficiency anemia, unspecified; N18.3 Chronic kidney disease, stage 3 (moderate); I12.9 Hypertensive chronic kidney disease with stage 1 through stage 4 chronic kidney disease, or unspecified chronic kidney disease; E66.09 Other obesity due to excess calories; Z68.30 Body mass index [BMI] 30.0-30.9, adult; K22.719 Barrett's esophagus with dysplasia, unspecified; K44.9 Diaphragmatic hernia without obstruction or gangrene; K31.84 Gastroparesis; K64.8 Other hemorrhoids; F31.9 Bipolar disorder, unspecified; E78.5 Hyperlipidemia, unspecified; K63.89 Other specified diseases of intestine; Z85.038 Personal history of other malignant neoplasm of large intestine; Z87.891 Personal history of nicotine dependence
CPT/HCPCS: 36415; 36430; 80048; 80053; 80307; 81001; 82274; 82550; 82607; 82728; 82746; 83540; 83550; 83735; 85014; 85018; 85025; 85046; 85055; 86644; 86850; 86900; 86901; 86923; 87086; 96361; 96374; 97161; 97165; 99285; A9270; J2704; J3010; J3480; J7030; J7050; J7120; P9016

== ENCOUNTER 2020-04-16 11:33 | Outpatient (NON) | payer OTHER, SELFPAY ==
[2020-04-16 22:05] LABS: SARS-CoV-2 RNA PCR Negative
== END 2020-04-16 11:34 ==
LOC: ANHCOVIDDT 11:33
PROVIDERS: PCP Internal Medicine; Visit Provider Internal Medicine
DX: Z20.822 Contact with and (suspected) exposure to COVID-19 (principal); R68.89 Other general symptoms and signs
CPT/HCPCS: C9803; U0003; U0005

== ENCOUNTER 2020-05-15 15:31 | Emergency (ER) | payer OTHER, SELFPAY ==
--- NOTE | ~2020-05-15 | XR_ITS ---
EXAMINATION: XR ankle RT min 3V DATE: 05/15/2020 16:26 INDICATION: Right ankle pain. Fall. TECHNIQUE: 4 views of right ankle were obtained. COMPARISON: None. FINDINGS: Bone alignment is normal. No fracture. There is mild osteoarthritis of the ankle joint. The re is ankle soft tissue swelling. There is an enthesophyte at the plantar aspect of calcaneal tuberos ity. IMPRESSION: 1. Mild ankle joint osteoarthritis. Reviewed, dictated and finalized at location A. [employer]
--- NOTE | ~2020-05-15 | XR_ITS ---
EXAMINATION: XR tibia fibula RT 2V DATE: 05/15/2020 16:26 INDICATION: Right lower leg pain. TECHNIQUE: 2 views of right tibia and fibula were obtained. COMPARISON: None. FINDINGS: Bone alignment is normal. No fracture. There is mild osteoarthritis of the knee joint and a nkle joint. IMPRESSION: 1. Mild polyarticular osteoarthritis. Reviewed, dictated and finalized at location A. [facility]
--- NOTE | ~2020-05-15 | XR_ITS ---
EXAMINATION: XR hip RT min 2V EXAM DATE: 05/15/2020 16:26 INDICATION: Initial encounter following injury, with pain of the right hip. TECHNIQUE: Right hip frontal, crosstable lateral and 'frog-leg' projections for interpretation. Corre lation is made to pelvis x-ray 04/03/2017. FINDINGS: Smooth right hip femoral head contour, no radiographic evidence of avascular necrosis. The re are no acute fractures or dislocations identified. There is no subcutaneous gas. The soft tissue is unremarkable. There are no radiopaque foreign bodies. There is mild primary osteoarthritis. IMPRESSION: 1. XR hip RT min 2V exam without acute osseous findings. Reviewed, dictated and finalized at location B. [employer]
--- NOTE | 2020-05-15 15:52 | ED.LOWEXIN ---
HPI - Extremity Injury (Lower) General Chief Complaint: Extremity Injury, Lower Stated Complaint: fell rt ankle/hip pain Time Seen by Provider: 05/15/20 15:52 Source: patient and RN notes reviewed Mode of arrival: ambulatory Limitations: no limitations History of Present Illness HPI Narrative: 64-year-old female who presents to express care with complaints of right hip pain, right lateral ankle discomfort and right mid anterior paez region after slipping when she was getting into her car this morning . Patient states that her right foot slipped off of the flat door frame region with foot twisting and going under car, hitting right mid paez region and right hip landing on door frame region.Patient has noted pain, swelling and some bruising to the lateral aspect of her right ankle, mild edema to the right mid anterior paez region, and stated pain to right lateral hip area. Patient has palpable pulses to her right foot and leg foot warm and pink, increase pain with weight bearing and movement of right hip. MD complaint: hip injury, leg injury, ankle injury and other (foot slipped and fell) Onset (ago): hour(s) (this morning) Injury: Right: hip and ankle Type of Injury: other (slipped and fell) Place: home Severity: moderate Severity scale (1-10): 7 Relieving factors: rest and other (elevation and took tylenol) Exacerbating factors: weight bearing Context: fall Associated symptoms: swelling and ambulatory (but with discomfort) Treatments prior to arrival: other (Tylenol) Related Data Home Medications Medication Instructions Recorded Confirmed loratadine 10 mg tablet 10 mg PO DAILY PRN 02/11/19 04/19/20 escitalopram oxalate 10 mg PO DAILY 10/19/19 04/19/20 lisinopril 10 mg PO QPM 10/19/19 04/19/20 Allergies Allergy/AdvReac Type Severity Reaction Status Date / Time No Known Allergies Allergy Verified 02/10/20 08:32 Review of Systems Review of Systems: Narrative: CONSTITUTIONAL: Denies fever, chills, or sweats. EYES: Denies visual changes, redness, or discharge. ENT: Denies rhinorrhea, congestion, sore throat, or otalgia. CARDIOVASCULAR: Denies chest pain, palpitations, or edema. RESPIRATORY: Denies cough or dyspnea. GASTROINTESTINAL: Denies abdominal pain, nausea, vomiting, or diarrhea. GENITOURINARY: Denies dysuria or hematuria. SKIN: Denies rash or itching. MUSCULOSKELETAL: Denies back pain,positive for right ankle joint pain laterally right mid paez region anteriorly and also discomfort to her right hip., or myalgia. NEUROLOGIC: Denies headache, numbness, or weakness. PSYCHIATRIC: history of anxiety or depression. All systems reviewed & are unremarkable except as noted in HPI and below PMFSH Past Medical History Medical History (Updated 05/15/20 @ 16:51 by Idania Phipps NP) Anemia Anxiety Diaz's esophagus with dysplasia Bipolar 1 disorder Body mass index (BMI) 35.0-35.9, adult (07/13/17) Chronic kidney disease, stage 3 (moderate) Current moderate episode of major depressive disorder without prior episode Depression Essential hypertension Gastroparesis Gastroparesis diabeticorum GERD without esophagitis Hiatal hernia History of colon cancer Hyperlipidemia Hypertension MEY (iron deficiency anemia) Long-term current use of benzodiazepine Mixed hyperlipidemia Obesity Type 2 diabetes mellitus with stage 3 chronic kidney disease Surgical History Surgical History History of bowel resection History of colonoscopy History of endoscopy Family History Family History Mother Diabetes mellitus Hypertension Family history of lung cancer, Onset Age: 85 Patient's mother is Family history of type 2 diabetes mellitus Sibling Diabetes mellitus Family history of suicide Father Family history of malignant neoplasm of esophagus, Onset Age: 80 Patient's father is deceas
[2020-05-15 15:56] VITALS: BP 100/71; PULSE 106; RESP 16; TEMP 36.4; O2SAT 98
--- NOTE | 2020-05-15 16:39 | ED.LOWEXIN ---
HPI - Extremity Injury (Lower) General Chief Complaint: Extremity Injury, Lower Stated Complaint: fell rt ankle/hip pain Time Seen by Provider: 05/15/20 15:52 Source: RN notes reviewed Mode of arrival: ambulatory Limitations: no limitations Related Data Home Medications Medication Instructions Recorded Confirmed loratadine 10 mg tablet 10 mg PO DAILY PRN 02/11/19 04/19/20 escitalopram oxalate 10 mg PO DAILY 10/19/19 04/19/20 lisinopril 10 mg PO QPM 10/19/19 04/19/20 Allergies Allergy/AdvReac Type Severity Reaction Status Date / Time No Known Allergies Allergy Verified 02/10/20 08:32 [facility] Past Medical History Medical History (Updated 05/03/20 @ 09:36 by Neto Jeter MD) Anemia Anxiety Diaz's esophagus with dysplasia Bipolar 1 disorder Body mass index (BMI) 35.0-35.9, adult (07/13/17) Chronic kidney disease, stage 3 (moderate) Current moderate episode of major depressive disorder without prior episode Depression Essential hypertension Gastroparesis Gastroparesis diabeticorum GERD without esophagitis Hiatal hernia History of colon cancer Hyperlipidemia Hypertension MEY (iron deficiency anemia) Long-term current use of benzodiazepine Mixed hyperlipidemia Obesity Type 2 diabetes mellitus with stage 3 chronic kidney disease Surgical History Surgical History History of bowel resection History of colonoscopy History of endoscopy Family History Family History Mother Diabetes mellitus Hypertension Family history of lung cancer, Onset Age: 85 Patient's mother is Family history of type 2 diabetes mellitus Sibling Diabetes mellitus Family history of suicide Father Family history of malignant neoplasm of esophagus, Onset Age: 80 Patient's father is Other Depression Social History Social History Smoking status: Former smoker Tobacco type: cigarettes Second hand tobacco smoke exposure: No Smoking end date: 03/23/07 Alcohol intake: never Substance use: never Substance use type: does not use Gender identity (if verbalized by the patient): Female Spiritual care concerns: No Course Vital Signs Vital signs: Vital Signs Temperature 36.4 C 05/15/20 15:56 Pulse Rate 106 H 05/15/20 15:56 Respiratory Rate 16 05/15/20 15:56 Blood Pressure 100/71 05/15/20 15:56 Pulse Oximetry 98 05/15/20 15:56 Temperature 36.4 C 05/15/20 15:56 Pulse Rate 106 H 05/15/20 15:56 Respiratory Rate 16 05/15/20 15:56 Blood Pressure 100/71 05/15/20 15:56 Pulse Oximetry 98 05/15/20 15:56 Discharge Plan Discharge Prescriptions: No Action bupropion HCl 150 mg tablet extended release 24 hr 150 mg PO QAM Qty: 90 RF: 0 loratadine [Allergy Relief (loratadine)] 10 mg tablet 10 mg PO DAILY PRN (Reason: allergies) RF: 0 lovastatin 40 mg tablet 40 mg PO QPM Qty: 90 RF: 4 escitalopram oxalate 10 mg tablet 10 mg PO DAILY RF: 0 lisinopril 10 mg tablet 10 mg PO QPM RF: 0 esomeprazole magnesium 40 mg capsule,delayed release(DR/EC) 40 mg PO DAILY Qty: 90 RF: 4 zolpidem 5 mg tablet 5 mg PO HS PRN (Reason: Sleep) Qty: 30 RF: 0 Follow-up/Referrals: Neto Jeter MD [Primary Care Provider] -
== END 2020-05-15 16:58 | disposition home or self-care (01) ==
PROVIDERS: Emergency Provider Registered Nurse; PCP Internal Medicine
DX: S90.01XA Contusion of right ankle, initial encounter (principal); W01.0XXA Fall on same level from slipping, tripping and stumbling without subsequent striking against object, initial encounter; M25.551 Pain in right hip; M79.661 Pain in right lower leg; Z87.891 Personal history of nicotine dependence; K22.719 Barrett's esophagus with dysplasia, unspecified; I12.9 Hypertensive chronic kidney disease with stage 1 through stage 4 chronic kidney disease, or unspecified chronic kidney disease; E11.22 Type 2 diabetes mellitus with diabetic chronic kidney disease; N18.30 Chronic kidney disease, stage 3 unspecified; E78.5 Hyperlipidemia, unspecified; E66.9 Obesity, unspecified; Z68.32 Body mass index [BMI] 32.0-32.9, adult; Z85.038 Personal history of other malignant neoplasm of large intestine; F41.9 Anxiety disorder, unspecified; F32.9 Major depressive disorder, single episode, unspecified; E11.43 Type 2 diabetes mellitus with diabetic autonomic (poly)neuropathy; K31.84 Gastroparesis
CPT/HCPCS: 73502; 73590; 73610; 99214; G0463

== ENCOUNTER 2020-05-31 22:14 | Emergency (ER) | payer OTHER, SELFPAY ==
[2020-05-31 22:21] VITALS: BP 148/53; PULSE 98; RESP 16; TEMP 36.8; O2SAT 97
[2020-05-31] MEDS: KETOROLAC 15 MG/ML VIAL (*BKC) IV PUSH (22:49)
[2020-05-31] MEDS: diazePAM INJ (*CRX) 10 MG/2 ML SYRINGE 5 MG IV PUSH (22:50)
[2020-05-31] MEDS: HYDROmorphone HCL INJ (*CRX) 1 MG/ML SYR IV PUSH (22:51)
--- NOTE | 2020-05-31 23:58 | ED.GENADULT ---
HPI - General Adult General Chief complaint: Extremity Injury, Lower Stated complaint: lower extremity pain Time Seen by Provider: 05/31/20 22:25 History of Present Illness HPI narrative: Patient is a 64-year-old female that presents the emergency department with chief complaint of right lower extremity pain. The patient states that she has been having pain in her right leg for about a year and has had worsening symptoms over the last 3 to 4 weeks. The patient reports she has seen pain management and they did multiple injections on her and used some Like things on her legs to try to treat her pain. The patient states that it made the pain worse and she was hurting so bad that she took one of her dogs trazodone the patient reported that she had told her primary care physician about this who subsequently terminated her care from their practice. The patient states that she has pain with movement reports that it starts in her right gluteal region and shoots down her leg. Patient reports its not improved by anything. Related Data Home Medications Medication Instructions Recorded Confirmed loratadine 10 mg tablet 10 mg PO DAILY PRN 02/11/19 04/19/20 escitalopram oxalate 10 mg PO DAILY 10/19/19 04/19/20 lisinopril 10 mg PO QPM 10/19/19 04/19/20 Allergies Allergy/AdvReac Type Severity Reaction Status Date / Time No Known Allergies Allergy Verified 05/31/20 22:31 Review of Systems Review of Systems: Narrative: A 10 system review of systems was completed on the patient and is negative except for what is stated in the HPI. Nursing and ancillary documentation was reviewed. [facility] Past Medical History Medical History (Updated 06/01/20 @ 00:03 by Alessandro Mcintosh MD) Anemia Anxiety Diaz's esophagus with dysplasia Bipolar 1 disorder Body mass index (BMI) 35.0-35.9, adult (07/13/17) Chronic kidney disease, stage 3 (moderate) Current moderate episode of major depressive disorder without prior episode Depression Essential hypertension Gastroparesis Gastroparesis diabeticorum GERD without esophagitis Hiatal hernia History of colon cancer Hyperlipidemia Hypertension MEY (iron deficiency anemia) Long-term current use of benzodiazepine Mixed hyperlipidemia Obesity Type 2 diabetes mellitus with stage 3 chronic kidney disease Surgical History Surgical History History of bowel resection History of colonoscopy History of endoscopy Family History Family History Mother Diabetes mellitus Hypertension Family history of lung cancer, Onset Age: 85 Patient's mother is Family history of type 2 diabetes mellitus Sibling Diabetes mellitus Family history of suicide Father Family history of malignant neoplasm of esophagus, Onset Age: 80 Patient's father is Other Depression Social History Social History Smoking status: Former smoker Tobacco type: cigarettes Second hand tobacco smoke exposure: No Smoking end date: 03/23/07 Alcohol intake: never Substance use: never Substance use type: does not use Gender identity (if verbalized by the patient): Female Spiritual care concerns: No Exam Narrative: Exam Narrative: GENERAL: Well-appearing, well-nourished, and in no acute distress. HEAD: Normocephalic, atraumatic. EYES: PERRLA and EOMI. ENT: Nares clear, no rhinorrhea or epistaxis. Mucous membranes moist. NECK: Supple. CHEST: Clear to auscultation. No respiratory distress. HEART: Regular rate and rhythm. No murmur heard. Normal peripheral pulses. ABDOMEN: Soft, nontender, nondistended, normal active bowel sounds. EXTREMITIES: Normal range of motion. No edema. There is tenderness to palpation of the right SI joint in the region of the sciatic nerve. SKIN: Warm,
[2020-06-01] MEDS: PROCHLORPERAZINE EDISYLATE 10 MG/2 ML VIAL IV PUSH (00:25)
[2020-06-01 00:37] VITALS: BP 148/96; PULSE 94; RESP 20; TEMP 36.8; O2SAT 100
== END 2020-06-01 00:38 | disposition home or self-care (01) ==
PROVIDERS: Emergency Provider Emergency Medicine
DX: M54.31 Sciatica, right side (principal); Z86.2 Personal history of diseases of the blood and blood-forming organs and certain disorders involving the immune mechanism; K22.719 Barrett's esophagus with dysplasia, unspecified; F31.9 Bipolar disorder, unspecified; E11.22 Type 2 diabetes mellitus with diabetic chronic kidney disease; I12.9 Hypertensive chronic kidney disease with stage 1 through stage 4 chronic kidney disease, or unspecified chronic kidney disease; N18.30 Chronic kidney disease, stage 3 unspecified; E11.43 Type 2 diabetes mellitus with diabetic autonomic (poly)neuropathy; K31.84 Gastroparesis; E78.2 Mixed hyperlipidemia; K21.9 Gastro-esophageal reflux disease without esophagitis; Z85.038 Personal history of other malignant neoplasm of large intestine; E66.9 Obesity, unspecified; Z68.35 Body mass index [BMI] 35.0-35.9, adult; Z87.891 Personal history of nicotine dependence; Z90.49 Acquired absence of other specified parts of digestive tract
CPT/HCPCS: 96374; 96375; 99284; J0780; J1170; J1885; J3360

== ENCOUNTER 2020-06-14 01:05 | Emergency (ER) | payer OTHER, SELFPAY ==
[2020-06-14 01:12] VITALS: BP 138/86; PULSE 102; RESP 18; TEMP 36.7; O2SAT 96
--- NOTE | 2020-06-14 01:14 | PC.NURSE ---
pt walked out of room after talking to MD.
--- NOTE | 2020-06-14 01:16 | ED.GENADULT ---
HPI - General Adult General Chief complaint: Extremity Injury, Lower Stated complaint: rt leg pain Time Seen by Provider: 06/14/20 01:09 History of Present Illness HPI narrative: Patient is a 64-year-old female who presents to the emergency department with chief complaint of right lower extremity pain. Patient has had chronic pain in her right lower extremity and has been followed by her primary care physician and initially had her services terminated by her primary care physician after she had taken a dose of her dogs trazodone. The patient subsequently states that she has reconciled with her doctor and now is being referred to a paint mixer hand patient states that she called them today to try to schedule an appointment but has not gotten into them yet. The patient states that tonight her pain is significantly worse and came to the emergency department to try to get her pain under control. Patient states this is the same pain that she has been having for a long period of time. The patient was offered nonnarcotic management of the pain and inflammation similar to what was provided to her on her last visit. The patient stated that she would just leave at that point proceeded to get up grab her purse and proceeded to walk out of the room with no difficulty Related Data Home Medications Medication Instructions Recorded Confirmed loratadine 10 mg tablet 10 mg PO DAILY PRN 02/11/19 04/19/20 escitalopram oxalate 10 mg PO DAILY 10/19/19 04/19/20 lisinopril 10 mg PO QPM 10/19/19 04/19/20 Allergies Allergy/AdvReac Type Severity Reaction Status Date / Time No Known Allergies Allergy Verified 05/31/20 22:31 Review of Systems Review of Systems: Narrative: A 10 system review of systems was completed on the patient and is negative except for what is stated in the HPI. Nursing and ancillary documentation was reviewed. [facility] Past Medical History Medical History (Updated 06/14/20 @ 01:21 by Alessandro Mcintosh MD) Anemia Anxiety Diaz's esophagus with dysplasia Bipolar 1 disorder Body mass index (BMI) 35.0-35.9, adult (07/13/17) Chronic kidney disease, stage 3 (moderate) Current moderate episode of major depressive disorder without prior episode Depression Essential hypertension Gastroparesis Gastroparesis diabeticorum GERD without esophagitis Hiatal hernia History of colon cancer Hyperlipidemia Hypertension MEY (iron deficiency anemia) Long-term current use of benzodiazepine Mixed hyperlipidemia Obesity Type 2 diabetes mellitus with stage 3 chronic kidney disease Surgical History Surgical History History of bowel resection History of colonoscopy History of endoscopy Family History Family History Mother Diabetes mellitus Hypertension Family history of lung cancer, Onset Age: 85 Patient's mother is Family history of type 2 diabetes mellitus Sibling Diabetes mellitus Family history of suicide Father Family history of malignant neoplasm of esophagus, Onset Age: 80 Patient's father is Other Depression Social History Social History Smoking status: Former smoker Tobacco type: cigarettes Second hand tobacco smoke exposure: No Smoking end date: 03/23/07 Alcohol intake: never Substance use: never Substance use type: does not use Gender identity (if verbalized by the patient): Female Spiritual care concerns: No Exam Narrative: Exam Narrative: GENERAL: Well-appearing, tearful rocking without difficulty. HEAD: Normocephalic, atraumatic. EYES: PERRLA and EOMI. ENT: Nares clear, no rhinorrhea or epistaxis. Mucous membranes moist. NECK: Supple. CHEST: No respiratory distress. ABDOMEN: nondistended, EXTREMITIES: Normal range of motion. No sloane
--- NOTE | 2020-06-14 01:16 | PC.NURSE ---
pt ambulated out of ER without diff. walked rapidly to front entrance and left in her car.
== END 2020-06-14 01:15 | disposition left against medical advice (07) ==
LOC: ANHED 01:47
PROVIDERS: Emergency Provider Emergency Medicine; PCP Internal Medicine
DX: M79.604 Pain in right leg (principal); G89.29 Other chronic pain; F41.9 Anxiety disorder, unspecified; D64.9 Anemia, unspecified; F31.9 Bipolar disorder, unspecified; I12.9 Hypertensive chronic kidney disease with stage 1 through stage 4 chronic kidney disease, or unspecified chronic kidney disease; E11.22 Type 2 diabetes mellitus with diabetic chronic kidney disease; N18.30 Chronic kidney disease, stage 3 unspecified
CPT/HCPCS: 99281

== ENCOUNTER 2021-05-07 15:49 | Outpatient (CLI) | payer OTHER, SELFPAY ==
[2021-05-07 16:09] LABS: Basophils Absolute Auto 0.1 K/mm3 (0.0-0.1); Basophils Percent Auto 1.4 % (0.2-1.2); Eosinophils Absolute Auto 0.4 K/mm3 (0-0.3); Eosinophils Percent Auto 4.8 % (0-4.4); Hematocrit 29.8 % (37.0-47.0); Hemoglobin 8.3 g/dL (12.0-15.0); Immature Granulocyte Absolute 0.02 K/mm3 (0.00-0.031); Immature Granulocyte Percent A 0.3 % (0-0.5); Immature Platelet Fraction Pct 6.2 % (0.9-11.2); Lymphocytes Absolute Auto 1.26 K/mm3 (0.9-3.2); Lymphocytes Percent Auto 17.1 % (18.3-44.2); Mean Corpuscular HGB Conc 27.9 g/dl (32-36); Mean Corpuscular Volume 82.5 fl (80-100); Mean Platelet Volume 10.5 fl (7.4-10.4); Monocytes Absolute Auto 0.7 K/mm3 (0.1-0.6); Monocytes Percent Auto 9.4 % (2.6-8.5); Neutrophils Absolute Auto 4.9 K/mm3 (1.3-6.7); Platelet Count Result 318 k/mm3 (150-375); Red Blood Count 3.61 M/mm3 (4.2-5.4); Red Cell Distribution Width 23.3 % (11.5-14.5); White Blood Count 7.4 K/mm3 (4.5-10.0)
[2021-05-07 16:10] LABS: Hypochromasia 1+ (NORMAL); Ovalocytes 1+ (NORMAL); Platelet Estimate Adequate (Adequate)
[2021-05-07 16:11] LABS: Poikilocytosis 1+ (NORMAL)
[2021-05-07 16:12] LABS: Reticulocyte Percent 1.69 % (0.7-4.3); Reticulocytes Absolute 0.06 B/L (32.2-175.7)
[2021-05-07 16:13] LABS: Immature Reticulocyte Fraction 23.9 % (3.0-15.9)
[2021-05-07 16:42] LABS: Alanine Aminotransferase 13 U/L (4-35); Albumin Level 4.6 g/dL (3.5-5.1); Alkaline Phosphatase 88 U/L (38-126); Anion Gap 8 mmol/L (8-16); Aspartate Amino Transferase 24 U/L (14-36); Bilirubin,Total 0.4 mg/dL (0.2-1.3); Blood Urea Nitrogen 14 mg/dL (7-17); Calcium 9.6 mg/dL (8.4-10.2); Carbon Dioxide 26 mmol/L (22-30); Chloride 105 mmol/L (98-107); Estimated Glomerular Filt Rate 45; Glucose 91 mg/dL (65-110); Lactate Dehydrogenase 404 U/L (313-618); Potassium 4.1 mmol/L (3.4-5.0); Sodium 139 mmol/L (137-145)
[2021-05-07 17:07] LABS: Carcinoembryonic Antigen 0.9 ng/mL (0.0-3.0)
[2021-05-07 17:20] LABS: Iron 24 ug/dL (37-170)
[2021-05-07 17:29] LABS: Percent Iron Saturation 5 % (20-50)
[2021-05-07 17:55] LABS: Ferritin 6.29 ng/mL (11.1-264)
[2021-05-07 20:15] LABS: Folic Acid 8.1 ng/mL (2.76->20)
[2021-05-07 21:33] LABS: Vitamin B12 > 1000.0 pg/mL (239-931)
== END 2021-05-07 15:50 | disposition home or self-care (01) ==
LOC: ANHLAB 15:50
PROVIDERS: PCP Internal Medicine; Visit Provider Internal Medicine Hematology & Oncology
DX: D64.9 Anemia, unspecified (principal); C18.9 Malignant neoplasm of colon, unspecified
CPT/HCPCS: 36415; 80053; 82378; 82607; 82728; 82746; 83540; 83550; 83615; 85025; 85046; 85055

== ENCOUNTER 2022-05-16 07:21 | Outpatient (RCR) | payer OTHER, SELFPAY ==
[2022-05-15 13:06] LABS: Hematocrit 25.2 % (37.0-47.0)
--- NOTE | 2022-05-15 14:48 | PC.NURSE ---
1311 Beba from lab called with a Critical Hemoglobin of 7.0. This is expected finding and higher than reported a few days ago from Dr. Petit's office. Patient is scheduled for 2 units PRBC transfusion tomorrow for anemia.
[2022-05-16] VITALS (10 sets, daily range): BP systolic 94–111; BP diastolic 45–59; PULSE 65–84; RESP 16–18; TEMP 36.4–36.9; O2SAT 96–100
[2022-05-16] MEDS: ACETAMINOPHEN 325 MG TABLET 650 MG PO (07:46)
[2022-05-16] MEDS: SODIUM CHLORIDE 0.9% IV 250 ML 30 ML IV CONT (07:50)
[2022-05-16] MEDS: FUROSEMIDE INJ 40 MG/4 ML VIAL 20 MG IV PUSH (10:32)
== END 2022-08-13 23:59 | disposition home or self-care (01) ==
LOC: ANHCPCTRAN 07:21
PROVIDERS: Visit Provider Internal Medicine Hematology & Oncology
DX: D64.9 Anemia, unspecified (principal)
CPT/HCPCS: 36415; 36430; 85014; 85018; 86850; 86900; 86901; 86923; 96374; A9270; J1940; J7050; P9016

== ENCOUNTER 2023-06-08 10:35 | Outpatient (CLI) | payer OTHER, SELFPAY ==
[2023-06-08 11:13] LABS: Hematocrit 31.2 % (37.0-47.0); Hemoglobin 10.1 g/dL (12.0-15.0); Mean Corpuscular HGB Conc 32.4 g/dl (32-36); Mean Platelet Volume 12.3 fl (7.4-10.4); Platelet Count Result 338 k/mm3 (150-375); Red Blood Count 3.06 M/mm3 (4.2-5.4); Red Cell Distribution Width 18.6 % (11.5-14.5); White Blood Count 7.1 K/mm3 (4.5-10.0)
[2023-06-08 11:27] LABS: Appearance Urine Clear (Clear); Bacteria Urine Rare /hpf; Bilirubin Urine Negative (Negative); Blood Urine Negative (Negative); Color Urine Yellow (Yellow); Glucose Urine UA 2+ mg/dL (Negative); Ketones Urine Negative (Negative); Leukocyte Esterase Ur 1+ LEU/UL (Negative); Nitrate Urine Negative (Negative); Non Pathogenic Casts 0-2; Protein Urine Negative (Negative); Squamous Epithelial Cell Urine Few /hpf (Few); Urobilinogen Urine 0.2 mg/dL (<2.0); pH Urine 5.5 (5.0-9.0)
[2023-06-08 11:28] LABS: Creatinine Urine 114.5 mg/dL; Total Protein Urine Random 6 mg/dL; Ur Ttl Prot Creatinine Ratio 0.05 mg/mg (0-0.20)
[2023-06-08 11:31] LABS: Add Urine Microscopic? YES
[2023-06-08 11:32] LABS: Albumin Level 4.7 g/dL (3.5-5.1); Anion Gap 11 mmol/L (8-16); Blood Urea Nitrogen 33 mg/dL (7-17); Calcium 9.8 mg/dL (8.4-10.2); Carbon Dioxide 20 mmol/L (22-30); Chloride 107 mmol/L (98-107); Creatine Kinase 53 U/L (30-135); Estimated Glomerular Filt Rate 23; Glucose 105 mg/dL (65-110); Potassium 5.1 mmol/L (3.4-5.0); Sodium 138 mmol/L (137-145)
[2023-06-08 11:37] LABS: Complement C3 120 mg/dL (88-165)
[2023-06-08 12:00] LABS: Erythrocyte Sedimentation Rate 108 mm/hr (0-20)
[2023-06-10 11:16] LABS: Kappa\\Lambda Light Chains 1.64 (0.26-1.65); Lambda Light Chain 21.4 mg/L (5.7-26.3)
[2023-06-13 16:41] LABS: Complement Total CH50 >60 U/mL (31-60)
== END 2023-06-08 10:36 | disposition home or self-care (01) ==
PROVIDERS: PCP Internal Medicine; Visit Provider Internal Medicine Nephrology
DX: D64.9 Anemia, unspecified (principal); E78.2 Mixed hyperlipidemia; I10 Essential (primary) hypertension; R94.4 Abnormal results of kidney function studies
CPT/HCPCS: 36415; 80069; 82550; 82570; 83883; 83970; 84156; 85027; 85652; 86038; 86160; 86162; 86334; 87086

== ENCOUNTER 2023-06-08 17:53 | Outpatient (CLI) | payer OTHER, SELFPAY | END 2023-06-08 17:54 | disposition home or self-care (01) | LOC: ANHLAB 17:54 | PROVIDERS: PCP Internal Medicine; Visit Provider Internal Medicine Nephrology | DX: R94.4 Abnormal results of kidney function studies (principal) | CPT/HCPCS: 87086 ==

== ENCOUNTER 2023-06-10 10:46 | Outpatient (CLI) | payer OTHER, SELFPAY ==
[2023-06-10 12:25] LABS: Total Volume 24 Hour Urine 1450 ml
[2023-06-10 12:46] LABS: Urea Nitrogen 24 Hour Urine 7.8 G/DAY (12-20)
[2023-06-17 07:54] LABS: Albumin 40 %; Creat 24 Hr 1.31 g/24 h (0.50-2.15); Pro/Creat Ratio 66 mg/g creat (<150); Pro/Creat Ratio mg/mg 0.066 (<0.150); Protein,total, 24 Hr Ur 87 mg/24 h (<150)
== END 2023-06-10 10:47 | disposition home or self-care (01) ==
LOC: ANHLAB 10:47
PROVIDERS: PCP Internal Medicine; Visit Provider Internal Medicine Nephrology
DX: R94.4 Abnormal results of kidney function studies (principal); D64.9 Anemia, unspecified; E78.2 Mixed hyperlipidemia; I10 Essential (primary) hypertension
CPT/HCPCS: 81050; 84540; 86335

== ENCOUNTER 2023-06-15 12:57 | Outpatient (CLI) | payer OTHER, SELFPAY ==
--- NOTE | ~2023-06-15 | US_ITS ---
EXAMINATION: US renal BI DATE: 06/15/2023 13:43 INDICATION: Abnormal kidney function tests TECHNIQUE: Multiple grayscale and Doppler ultrasound images of the kidneys were obtained. COMPARISON: 02/26/2016 FINDINGS: The right kidney measures 8.4 x 4.1 x 4.4 cm. The left kidney measures 9.3 x 4.6 x 4.7 cm. The kidneys demonstrate normal parenchymal echogenicity. There is no hydronephrosis. The bladder is n ormal. IMPRESSION: 1. Mild atrophy of the kidneys kidneys without hydronephrosis. Reviewed, dictated and finalized at location F.
== END 2023-06-15 12:58 | disposition home or self-care (01) ==
LOC: ANHIMG 12:59
PROVIDERS: PCP Internal Medicine; Visit Provider Internal Medicine Nephrology
DX: I10 Essential (primary) hypertension (principal); E78.2 Mixed hyperlipidemia; D64.9 Anemia, unspecified; R94.4 Abnormal results of kidney function studies; N26.1 Atrophy of kidney (terminal)
CPT/HCPCS: 76775

== ENCOUNTER 2023-06-30 12:31 | Outpatient (CLI) | payer OTHER, SELFPAY ==
[2023-06-30 13:13] LABS: Albumin Level 4.5 g/dL (3.5-5.1); Anion Gap 7 mmol/L (4-12); Blood Urea Nitrogen 29 mg/dL (7-17); Calcium 9.3 mg/dL (8.4-10.2); Carbon Dioxide 23 mmol/L (22-30); Chloride 108 mmol/L (98-107); Estimated Glomerular Filt Rate 30; Glucose 92 mg/dL (65-110); Phosphorus 3.5 mg/dL (2.5-4.5); Potassium 4.5 mmol/L (3.4-5.0); Sodium 138 mmol/L (137-145)
[2023-06-30 13:43] LABS: Creatinine Urine 120.3 mg/dL
[2023-06-30 13:45] LABS: Sodium Urine Random 111 meq/L
== END 2023-06-30 12:32 | disposition home or self-care (01) ==
LOC: ANHLAB 12:31
PROVIDERS: PCP Internal Medicine; Visit Provider Internal Medicine Nephrology
DX: R94.4 Abnormal results of kidney function studies (principal)
CPT/HCPCS: 36415; 80069; 82570; 84300

== ENCOUNTER 2023-07-24 08:58 | Outpatient (CLI) | payer MEDICARE, SELFPAY ==
[2023-07-24 09:39] LABS: Albumin Level 4.5 g/dL (3.5-5.1); Anion Gap 10 mmol/L (4-12); Blood Urea Nitrogen 40 mg/dL (7-17); Calcium 9.8 mg/dL (8.4-10.2); Carbon Dioxide 22 mmol/L (22-30); Chloride 107 mmol/L (98-107); Estimated Glomerular Filt Rate 20; Glucose 98 mg/dL (65-110); Phosphorus 4.3 mg/dL (2.5-4.5); Potassium 5.2 mmol/L (3.4-5.0); Sodium 139 mmol/L (137-145)
== END 2023-07-24 08:59 | disposition home or self-care (01) ==
LOC: ANHLAB 09:04
PROVIDERS: PCP Internal Medicine; Visit Provider Internal Medicine Nephrology
DX: R94.4 Abnormal results of kidney function studies (principal)
CPT/HCPCS: 36415; 80069

== ENCOUNTER 2023-08-03 10:17 | Outpatient (CLI) | payer MEDICARE, SELFPAY ==
[2023-08-03 10:59] LABS: Appearance Urine Clear (Clear); Bacteria Urine None Seen /hpf; Bilirubin Urine Negative (Negative); Blood Urine Negative (Negative); Color Urine Yellow (Yellow); Glucose Urine UA Negative (Negative); Ketones Urine Negative (Negative); Leukocyte Esterase Ur Trace LEU/UL (Negative); Nitrate Urine Negative (Negative); Non Pathogenic Casts 0-2; Protein Urine Negative (Negative); RBC Urine 0-2 /hpf (0-2); Specific Grav Ur 1.008 (1.001-1.035); Squamous Epithelial Cell Urine None Seen /hpf (Few); Urobilinogen Urine 0.2 mg/dL (<2.0); WBC Urine 0-5 /hpf (0-3)
[2023-08-03 11:06] LABS: Add Urine Microscopic? YES
== END 2023-08-03 10:18 | disposition home or self-care (01) ==
PROVIDERS: PCP Internal Medicine; Referring Provider Internal Medicine Hematology & Oncology; Visit Provider Internal Medicine Nephrology
DX: R82.81 Pyuria (principal); Z79.899 Other long term (current) drug therapy
CPT/HCPCS: 81001; 87086

== ENCOUNTER 2023-08-05 13:50 | Outpatient (CLI) | payer MEDICARE, SELFPAY ==
[2023-08-05 14:50] LABS: Albumin Level 4.7 g/dL (3.5-5.1); Anion Gap 10 mmol/L (4-12); Blood Urea Nitrogen 28 mg/dL (7-17); Calcium 9.7 mg/dL (8.4-10.2); Carbon Dioxide 23 mmol/L (22-30); Chloride 106 mmol/L (98-107); Estimated Glomerular Filt Rate 20; Glucose 110 mg/dL (65-110); Phosphorus 4.3 mg/dL (2.5-4.5); Potassium 4.5 mmol/L (3.4-5.0); Rheumatoid Factor < 12.0 IU/ML (<12); Sodium 139 mmol/L (137-145)
[2023-08-05 15:20] LABS: Erythrocyte Sedimentation Rate 68 mm/hr (0-20)
[2023-08-06 16:43] LABS: SM Antibody <1.0 NEG AI (<1.0 NEG); SM/RNP Antibody <1.0 NEG AI (<1.0 NEG); SS-A <1.0 NEG AI (<1.0 NEG); SS-B <1.0 NEG AI (<1.0 NEG)
[2023-08-08 15:29] LABS: Anti Glomerular Basement Memb <1.0 AI
[2023-08-09 00:53] LABS: ANCA Screen NEGATIVE (NEGATIVE)
[2023-08-12 21:04] LABS: Cryoglobulin, QL Negative (Negative)
== END 2023-08-05 13:51 | disposition home or self-care (01) ==
PROVIDERS: PCP Internal Medicine; Visit Provider Internal Medicine Nephrology
DX: R76.0 Raised antibody titer (principal); R94.4 Abnormal results of kidney function studies
CPT/HCPCS: 36415; 80069; 82595; 83520; 85652; 86036; 86038; 86225; 86235; 86430

== ENCOUNTER 2023-08-25 08:21 | Outpatient (CLI) | payer MEDICARE, SELFPAY ==
[2023-08-18 13:39] VITALS: BMI 31.4
--- NOTE | 2023-08-18 13:48 | PC.NURSE ---
Report to the Outpatient Waiting Room, entrance under the green pavilion located off [facility], at time on date . Planned Procedure Time: . Time changes happen often and if your time is changed the preop area will call you the afternoon before. - You and your visitor will be asked to self-screen and do not enter if you have any COVID symptoms. - A mask is optional within the hospital at this time. Patients may have clear liquids (water, carbonated beverages, clear teas, apple juice) until 3 hours prior to surgery with a maximum of 20 ounces. - No food from midnight until time of surgery - Infants may have breast milk until 4 hours before surgery, infant formula 6 hours prior to surgery. - Children will be allowed to drink immediately following surgery. If applicable, please bring a bottle or sippy cup to assist with drinking. Juice, water, soda, and popsicles are readily available. For infants on formula, please bring formula the day of surgery. Pacifiers are allowed. Take the following medications with a SIP of water the morning of surgery: DO NOT STOP ANY OF YOUR OTHER PRESCRIPTION MEDICATIONS PRIOR TO SURGERY ?EXCEPT THE FOLLOWING Medications to discontinue per physician Date to take last dose Please no make-up, nail mohawk, hairspray, perfume, deodorant, or body powder the day of surgery. No jewelry (including any body piercings) or valuables the day of surgery, leave them at home. Please take a shower or bath the night before, or the morning of, surgery with an antibacterial soap. Wear comfortable, loose fitting clothing. Children are encouraged to wear pajamas. - Jewelry must be removed prior to entering the operating room. Rings and piercings that are not removed may be cut off. - The hospital will not accept responsibility for valuables. - Please leave all valuables, including medications, at home the day of surgery. If you are going home after surgery, a licensed garbage truck driver must drive you home. - NO public transportation without another adult if you receive anesthesia. - We recommend that an adult stay with you for 24 hours following discharge. - We also recommend that you do not drive, make important decision, drink alcoholic beverages, or take any drugs that were not prescribed by your health care provider for at least 24 hours after your discharge time. For Pediatric surgeries, we recommend two adults accompany the child home. Follow any additional instructions given to you from your surgeon. If you or anyone in your household have experienced Covid symptoms in the past week, please notify your surgeon or the nurse liaison at the phone number below for possible testing. Telephone instructions given to and asked if any additional questions and then verbalized understanding. Patient advised to call surgeon office or pre surgery nurse liaison [phone] if any additional questions.
--- NOTE | 2023-08-18 13:48 | PC.NURSE ---
Pre Radiology instructions Report to the outpatient lorraine foote on date _08/25/23____ at time __8:30AM for procedure Time: _10:30AM___ YOU MAY BE MONITORED AT HOSPITAL FOR UP TO 4 HOURS AFTER YOUR PROCEDURE. A visitor will be allowed to accompany the patient into the hospital. You and your visitor will be asked to self-screen and do not enter if you have any COVID symptoms. A mask is OPTIONAL within the hospital. Patients are to have no food or drink 6 hours prior to procedure time Driving will be restricted after the procedure, you must have a person to drive you home. Labs will be drawn in preop area and once reviewed, you will be taken to radiology area for procedure. When the procedure is completed, you will be taken to outpatient where you will be monitored for several hours. You may have one visitor in this area. Other than holding anti-coagulants, patient may take other medication(s) as scheduled. Prior to your appointment date patients are instructed to hold anti-coagulants after discussing with ordering provider to stop. If unable to discontinue anti-coagulants please notify radiologist. ? No aspirin or warfarin (Coumadin) for 7 days prior to the procedure. ? No clopidogrel (Plavix), ticagrelor (Brilinta), prasugrel (Effient) or dabigatran (Pradaxa) for 5 days prior to the procedure. ? No rivaroxaban (Xarelto), apixaban (Eliquis), dipyridamole (Aggrenox or Persantine) or cilostazol (Pletal) for 2 days prior to the procedure. Medications to discontinue per physician: __NONE Date to take last dose: Please leave all valuables, including medications, at home the day of procedure. The hospital will not accept responsibility for valuables. Wear comfortable, loose fitting clothing.? Follow any additional instructions given to you from ordering provider. Telephone instructions given to ____PATIENT and asked if any additional questions and then verbalized understanding. Patient advised to call scheduling provider office or registration scheduling [phone] if any additional questions.
[2023-08-25] VITALS (9 sets, daily range): BP systolic 92–122; BP diastolic 47–67; PULSE 71–76; RESP 18; TEMP 36.7; O2SAT 96; BMI 31.6
--- NOTE | ~2023-08-25 | US_ITS ---
EXAMINATION: US biopsy renal DATE: 08/25/2023 11:11 INDICATION: Positive JOEL. Low GFR. TECHNIQUE: The procedure including the risks, benefits, and alternatives was discussed with the patie nt. Risks discussed included bleeding and infection. The patient understood the risks and agreed to p roceed. A timeout was performed to verify the patient's name, date of , and procedure to be p erformed. The skin overlying the left kidney was prepped and draped in usual sterile fashion. Anest hetic was administered with 1% lidocaine subcutaneously. An 18 gauge core biopsy needle was then use d to obtain 4 core biopsy specimens under continuous sonographic guidance. The entry site was cleaned and dressed. There were no immediate complications. FINDINGS: Ultrasound images demonstrate the needle in the kidney. IMPRESSION: 1. Ultrasound-guided random left kidney core needle biopsy. Reviewed, dictated and finalized at location A.
[2023-08-25 09:41] LABS: Immature Platelet Fraction Pct 8.1 % (0.9-11.2); Mean Platelet Volume 13.1 fl (7.4-10.4); Platelet Count Result 246 k/mm3 (150-375)
== END 2023-08-25 15:00 | disposition home or self-care (01) ==
PROVIDERS: PCP Internal Medicine; Referring Provider Internal Medicine Nephrology; Visit Provider Radiology Diagnostic Radiology
PROC: (CPT 76942; principal; 2023-08-25 10:30)
DX: R94.4 Abnormal results of kidney function studies (principal); R76.0 Raised antibody titer; I12.9 Hypertensive chronic kidney disease with stage 1 through stage 4 chronic kidney disease, or unspecified chronic kidney disease; N18.9 Chronic kidney disease, unspecified
CPT/HCPCS: 36415; 50200; 76942; 85049; 85055; 85610; 88300; 88305; 88313; 88329; 88346; 88348; 88350

== ENCOUNTER 2023-09-04 08:43 | Outpatient (CLI) | payer MEDICARE, SELFPAY ==
[2023-09-04 10:11] LABS: Anion Gap 10 mmol/L (4-12); Blood Urea Nitrogen 35 mg/dL (7-17); Calcium 9.5 mg/dL (8.4-10.2); Carbon Dioxide 23 mmol/L (22-30); Chloride 105 mmol/L (98-107); Estimated Glomerular Filt Rate 18; Glucose 96 mg/dL (65-110); Potassium 5.6 mmol/L (3.4-5.0); Sodium 138 mmol/L (137-145)
== END 2023-09-04 08:44 | disposition home or self-care (01) ==
LOC: ANHLAB 08:44
PROVIDERS: PCP Internal Medicine; Visit Provider Internal Medicine Nephrology
DX: R94.4 Abnormal results of kidney function studies (principal)
CPT/HCPCS: 36415; 80048

== ENCOUNTER 2023-09-25 08:05 | Outpatient (CLI) | payer MEDICARE, SELFPAY ==
[2023-09-25 08:32] LABS: Hemoglobin 9.5 g/dL (12.0-15.0); Mean Corpuscular HGB Conc 33.9 g/dl (32-36); Mean Corpuscular Hemoglobin 34.9 pg (26-34); Mean Corpuscular Volume 102.9 fl (80-100); Mean Platelet Volume 11.9 fl (7.4-10.4); Platelet Count Result 279 k/mm3 (150-375); Red Blood Count 2.72 M/mm3 (4.2-5.4); Red Cell Distribution Width 16.4 % (11.5-14.5); White Blood Count 5.5 K/mm3 (4.5-10.0)
[2023-09-25 08:46] LABS: Albumin Level 4.4 g/dL (3.5-5.1); Anion Gap 8 mmol/L (4-12); Blood Urea Nitrogen 23 mg/dL (7-17); Calcium 9.4 mg/dL (8.4-10.2); Carbon Dioxide 22 mmol/L (22-30); Chloride 109 mmol/L (98-107); Estimated Glomerular Filt Rate 22; Glucose 105 mg/dL (65-110); Phosphorus 3.9 mg/dL (2.5-4.5); Potassium 5.2 mmol/L (3.4-5.0); Sodium 139 mmol/L (137-145)
[2023-09-25 08:47] LABS: Creatinine Urine 64.3 mg/dL; Total Protein Urine Random 7 mg/dL; Ur Ttl Prot Creatinine Ratio 0.11 mg/mg (0-0.20)
[2023-09-25 08:56] LABS: Parathyroid Intact 38.6 pg/mL (7.5-53.5)
== END 2023-09-25 08:06 | disposition home or self-care (01) ==
PROVIDERS: PCP Internal Medicine; Visit Provider Internal Medicine Nephrology
DX: R94.4 Abnormal results of kidney function studies (principal)
CPT/HCPCS: 36415; 80069; 82570; 83970; 84156; 85027

== ENCOUNTER 2023-10-05 11:22 | Outpatient (CLI) | payer MEDICARE, SELFPAY ==
[2023-10-05 11:45] LABS: Basophils Absolute Auto 0.1 K/mm3 (0.0-0.1); Basophils Percent Auto 1.1 % (0.2-1.2); Eosinophils Absolute Auto 0.4 K/mm3 (0-0.3); Eosinophils Percent Auto 5.9 % (0-4.4); Hematocrit 29.9 % (37.0-47.0); Hemoglobin 9.9 g/dL (12.0-15.0); Immature Granulocyte Absolute 0.02 K/mm3 (0.00-0.031); Immature Granulocyte Percent A 0.3 % (0-0.5); Lymphocytes Absolute Auto 1.01 K/mm3 (0.9-3.2); Lymphocytes Percent Auto 16.6 % (18.3-44.2); Mean Corpuscular HGB Conc 33.1 g/dl (32-36); Mean Corpuscular Hemoglobin 34.9 pg (26-34); Mean Corpuscular Volume 105.3 fl (80-100); Mean Platelet Volume 12.6 fl (7.4-10.4); Monocytes Absolute Auto 0.7 K/mm3 (0.1-0.6); Monocytes Percent Auto 10.7 % (2.6-8.5); Neutrophils Percent Auto 65.4 % (45.5-73.1); Nucleated Red Blood Cells Perc 0.5 % (0.0-0.2); Platelet Count Result 288 k/mm3 (150-375); Red Blood Count 2.84 M/mm3 (4.2-5.4); Red Cell Distribution Width 16.8 % (11.5-14.5); White Blood Count 6.1 K/mm3 (4.5-10.0)
[2023-10-05 11:55] LABS: Anion Gap 12 mmol/L (4-12); Blood Urea Nitrogen 27 mg/dL (7-17); Calcium 9.7 mg/dL (8.4-10.2); Carbon Dioxide 24 mmol/L (22-30); Chloride 104 mmol/L (98-107); Estimated Glomerular Filt Rate 18; Glucose 92 mg/dL (65-110); Potassium 5.5 mmol/L (3.4-5.0); Sodium 140 mmol/L (137-145)
[2023-10-05 12:01] LABS: Hypochromasia 1+; Platelet Estimate Adequate (Adequate); Schistocytes Rare
[2023-10-05 12:03] LABS: Ovalocytes 1+; Poikilocytosis 1+
[2023-10-05 12:06] LABS: Iron 92 ug/dL (37-170)
[2023-10-05 12:07] LABS: Anisocytosis 1+
[2023-10-05 12:16] LABS: Percent Iron Saturation 29 % (20-50)
== END 2023-10-05 11:23 | disposition home or self-care (01) ==
LOC: ANHLAB 11:26
PROVIDERS: PCP Internal Medicine; Visit Provider Internal Medicine Hematology & Oncology
DX: D64.9 Anemia, unspecified (principal)
CPT/HCPCS: 36415; 80048; 82728; 83540; 83550; 85025

== ENCOUNTER 2023-11-25 08:17 | Outpatient (CLI) | payer MEDICARE, SELFPAY ==
[2023-11-25 08:39] LABS: Hematocrit 30.5 % (37.0-47.0); Mean Corpuscular HGB Conc 32.8 g/dl (32-36); Mean Corpuscular Hemoglobin 34.8 pg (26-34); Mean Corpuscular Volume 106.3 fl (80-100); Mean Platelet Volume 10.8 fl (7.4-10.4); Platelet Count Result 268 k/mm3 (150-375); Red Blood Count 2.87 M/mm3 (4.2-5.4); Red Cell Distribution Width 17.8 % (11.5-14.5); White Blood Count 5.6 K/mm3 (4.5-10.0)
[2023-11-25 09:09] LABS: Anion Gap 11 mmol/L (4-12); Blood Urea Nitrogen 32 mg/dL (7-17); Calcium 9.9 mg/dL (8.4-10.2); Carbon Dioxide 25 mmol/L (22-30); Chloride 103 mmol/L (98-107); Estimated Glomerular Filt Rate 20; Glucose 115 mg/dL (65-110); Potassium 4.6 mmol/L (3.4-5.0); Sodium 139 mmol/L (137-145)
[2023-11-25 10:44] LABS: Iron 125 ug/dL (37-170)
[2023-11-25 10:54] LABS: Percent Iron Saturation 37 % (20-50)
== END 2023-11-25 08:18 | disposition home or self-care (01) ==
LOC: ANHLAB 08:22
PROVIDERS: PCP Internal Medicine; Visit Provider Internal Medicine Hematology & Oncology
DX: D64.9 Anemia, unspecified (principal)
CPT/HCPCS: 36415; 80048; 82728; 83540; 83550; 85027

== ENCOUNTER 2024-01-18 10:36 | Outpatient (CLI) | payer MEDICARE, SELFPAY ==
[2024-01-18 11:46] LABS: Hematocrit 27.4 % (37.0-47.0); Hemoglobin 8.8 g/dL (12.0-15.0); Mean Corpuscular HGB Conc 32.1 g/dl (32-36); Mean Corpuscular Hemoglobin 34.8 pg (26-34); Mean Corpuscular Volume 108.3 fl (80-100); Mean Platelet Volume 12.3 fl (7.4-10.4); Platelet Count Result 316 k/mm3 (150-375); Red Blood Count 2.53 M/mm3 (4.2-5.4); Red Cell Distribution Width 17.8 % (11.5-14.5); White Blood Count 5.1 K/mm3 (4.5-10.0)
[2024-01-18 11:49] LABS: Albumin Level 4.5 g/dL (3.5-5.1); Anion Gap 9 mmol/L (4-12); Blood Urea Nitrogen 21 mg/dL (7-17); Calcium 9.2 mg/dL (8.4-10.2); Carbon Dioxide 21 mmol/L (22-30); Chloride 108 mmol/L (98-107); Cholesterol 124 mg/dL (0-200); Estimated Glomerular Filt Rate 20; Glucose 84 mg/dL (65-110); HDL Direct 57 mg/dL; Phosphorus 3.6 mg/dL (2.5-4.5); Potassium 5.4 mmol/L (3.4-5.0); Sodium 138 mmol/L (137-145); Triglycerides 65 mg/dL (<150)
[2024-01-18 12:00] LABS: LDL Cholesterol Direct 46 mg/dL
[2024-01-18 12:01] LABS: Parathyroid Intact 42.3 pg/mL (14.5-75.2)
[2024-01-18 12:48] LABS: Total Protein Urine Random < 5 mg/dL; Ur Ttl Prot Creatinine Ratio < 0.03 mg/mg (0-0.20)
== END 2024-01-18 10:37 | disposition home or self-care (01) ==
PROVIDERS: PCP Internal Medicine; Visit Provider Internal Medicine Nephrology
DX: R94.4 Abnormal results of kidney function studies (principal); M85.80 Other specified disorders of bone density and structure, unspecified site; E78.5 Hyperlipidemia, unspecified
CPT/HCPCS: 36415; 80061; 80069; 82570; 83970; 84156; 85027

== ENCOUNTER 2024-07-28 11:43 | Outpatient (CLI) | payer MEDICARE, SELFPAY ==
--- OUTSIDE RECORDS SUMMARY | 2024-07-28 11:49 | XMS_ITS | CONTINUITY OF CARE DOCUMENT ---
Author Name dale latashaericka Address Unknown Organization [facility] Address [address] [place] [address] Phone [phone] Care Team Providers Care Engineering Operations Leader Name Role Phone Hermilo BARBOSA, Asaf Unavailable [phone] Perico Cardona MD Unavailable Perico Cardona MD Unavailable PROBLEMS Condition Status Date Provider Notes HTN active Merline Anderson MD PAD - s/p b/l iliac stenting 2020 active Asaf Akhtar MD Hypercholesterolemia active Merline zaman MD Tobacco abuse- hx of active Merline zmaan MD Carotid bruit right active Merline Anderson MD DM - type 2 completed - Asaf Akhtar MD Cardiology examination active Asaf kumar MD CKD stage IV active Asaf Akhtar MD Hyperglycemia active Asaf Akhtar MD Chest pain active Adriana Gifford anemia active Asaf Akhtar MD ENCOUNTERS Date Type Provider Location Encounter Diag nosis - In-person encounter Office Visit Asaf Akhtar MD [facility] anemia - In-person encounter Office Visit Asaf Akhtar MD [facility] PAD - s/p b/l iliac stenting 1DM - type 2Cardiology examinationCKD stage IVHyperglycemiaChest pain - In-person encounter Office Visit Merline Anderson MD [facility] HTNPAD - s/p b/l iliac stenting 2020HypercholesterolemiaTob acco abuse- hx ofCarotid bruit right VITAL SIGNS Date Observation Value Provider Body Mass Index (Ratio) 28.72 kg/m2 Dang khan Balta blood pressure, diastolic 92 mm[Hg] Li nkLogeneida blood pressure, systolic 124 mm[Hg] Taty Aleena blood pressure, cuff size regular Yanna Yoder blood pressure, diastolic 92 mm[Hg] Yanna Yoder blood pressure, systolic 124 mm[Hg] She toni Yoder pulse rate 100 /min Phylicia Yoder oxygen saturation, oximetry 99 % Phylicia Yoder respiratory rate E&M 18 /min Phylicia Yoder weight E&M 172.6 [lb_av] Phylicia Yoder height E&M 65 [in_i] Phylicia Yoder Body Mass Index (Ratio) 29.28 kg/m2 Dang khan Balta blood pressure, diastolic 65 mm[Hg] St jose Boni blood pressure, systolic 128 mm[Hg] Juan Plata oxygen saturation, oximetry 100 % Sara Plata respiratory rate E&M 18 /min Sara Ramirez wojciech pulse rate 95 /min Sara Plata weight E&M 176 [lb_av] Sarafox Plata height E&M 65 [in_i] Sara Plata weight E&M 204 [lb_av] Leo breaux Body Mass Index (Ratio) 33.94 kg/m2 Dorothy Anderson MD blood pressure, cuff size large Ke rri Ce blood pressure, diastolic 80 mm[Hg] Sher rri Ce blood pressure, systolic 130 mm[Hg] Amy Encinas oxygen saturation, oximetry 97 % Gianna Encinas respiratory rate E&M 16 /min Gianna ruvalcaba pulse rate 101 /min Gianna grider weight E&M 204 [lb_av] Gianna grider height E&M 65 [in_i] Gianna grider HISTORY OF MEDICATION USE Medication Status Instructions Dates Provider Indications Com ments zolpidem 5 mg tablet active Sara Plata esomeprazole magnesium 40 mg capsule,delayed release(DR/EC) active Sara Plata acyclovir 400 mg tablet active Sara Plata lisinopril 20 mg tablet active Sara Plata Farxiga 5 mg tablet active Sara Plata vilazodone 40 mg tablet active Sara Plata calcitriol 0.25 mcg capsule active Sara Plata bupropion HCl 300 mg tablet extended release 24 hr active Sara Plata lovastatin 40 mg tablet active Sara Plata ergocalciferol (vitamin D2) 1,250 mcg (50,000 unit) capsule active Sara Plata Claritin Liqui-Gel 10 mg capsule active once a day as needed Gianna Encinas alprazolam 0.25 mg tablet active 1 tablet three times a day as needed Gianna Encinas Vitamin B-12 1,000 mcg tablet active 1 tablet once a day Gianna Encinas RA VITAMIN C TABLET active once a day Gianna Encinas CVS FIBER CAPSULE active once a day Gianna Encinas MULTIVITAMINS ORAL CAPSULE active 1 tablet once a day Gianna Encinas ASPIRIN 81 81 MG ORAL TABLET DELAYED RELEASE active 1 tablet by mouth once a day Gianna Grtom lisinopril 10 mg tablet active 1 tablet once a day Gianna Keymitulaleah lovastatin 40 mg tablet active Take 1 tablet by mouth every night Gianna Encinas #90, 90 days supply, Prescribed by EB GONZALEZ, Filled 05/29/2020 esomeprazole magnesium 40 mg capsule,delayed release(DR/EC) active Take 1 capsule by mouth once a day Gianna [place]ialeah #90, 90 days supply, Prescribed by EB GONZALEZ, Filled 05/30/2020 clopidogrel 75 mg tablet completed Take 1 tablet by mouth once a day - Asaf Akhtar MD #90, 90 days supply, Prescribed by SHRUTHI GEE, Filled 06/24/2020 bupropion HCl 300 mg tablet extended release 24 hr active Take 1 by mouth once a day Gianna Ce #30, 30 days supply, Prescribed by ANASTASIYA CLARK, Filled 07/09/2020 venlafaxine 75 mg capsule,extended release 24hr active Take 1 capsule by mouth every morning Giannabecca Keysandra #30, 30 days supply, Prescribed by DAVID WATERS, Filled 07/13/2020 zolpidem 5 mg tablet active Take 1 tablet by mouth as needed Gianna Encinas #30, 30 days supply, Prescribed by DAVID WATERS, Filled 07/16/2020 SOCIAL HISTORY Date Observation Value Provider social history E&M S moking History: Charles vargas has never smoked. Asaf Akhtar MD social history reviewed E&M revi ewed - no changes required Asaf Akhtar MD smoking status Never smoker Phylicia Beba social history E&M S moking History: Charles vargas is a former smoker. Asaf Akhtar MD social history reviewed E&M revi ewed - no changes required Asaf Akhtar MD smoking, year quit 2007 Sara Burnett is cigarette use yes Sara Plata smoking status Former smoker Sara Plata number of grandchildren Merline Anderson MD smoking, year quit 2007 Merline Anderson MD cigarette use yes Merline mcleod MD smoking status Former smoker Merline sutton MD social history reviewed E&M revi ewed - no changes required Merline Anderson MD INSURANCE PROVIDERS Payer name Policy type / Coverage type [place] [employer] party ID [employer] PPO Other [id number] ADVANCE DIRECTIVES Name Date DISCUSSED - NO DECISION MADE TREATMENT PLAN Date Name Performer [id number],C, P t continues on lovastatin Asaf Akhtar MD [id number],C,B P elevated today at 124/92. Advised reduced sodium intake and routine monitoring of the blood pressure. We aim for less than 130/80. Asaf Akhtar MD [id number],C, E cho showed normal EF, diastolic dysfunction, and no significant valvular abnormalities. Stress test showed normal perfusion. Her labs revealed a Hgb of 7.8. Her symptoms are likely related to her anemia. She is planned to follow with oncology for further treatment. Asaf Akhtar MD [id number],C, R ecent Hgb 7.8 from 04/14. She is planned to see Dr. Petit (oncology) for further workup and treatment. Likely the cause of her symptoms. Asaf Akhtar MD [id number],S, B ilateral iliac stenting. She had 7x27 (R) and 8x27 (L) express BMS N o claudication today Asaf Akthar MD [id number],C, F ollows with Dr. DMITRIY Quintana Pt recenlty diagnosed with CKD, Pt is worried abour her cardiac risk. She is also having symptoms. Will obtain echo and stress test Adriana Gifford [id number],C, P t having almost constant chest pain. WE will check echo to assess LV function and stress test to rule out ischemic causes Adriana Gifford [id number],C, P t continues on lovastatin Asaf Akhtar MD [id number],C,B lood pressure control is satisfactory. Asaf Akhtar MD [id number],C, F olpros with Dr. DMITRIY Akhtar MD [id number],C, B ilateral iliac stenting. She had 7x27 (R) and 8x27 (L) express BMS N o claudication today Asaf Akhtar MD Cardiology: P t continues on lovastatin Asaf Akhtar MD Cardiology:BP elevat ed today at 124/92. Advised reduced sodium intake and routine monitoring of the blood pressure. We aim for less than 130/80. Asaf Akhtar MD Cardiology: E cho showed normal EF, diastolic dysfunction, and no significant valvular abnormalities. Stress test showed normal perfusion. Her labs revealed a Hgb of 7.8. Her symptoms are likely related to her anemia. She is planned to follow with oncology for further treatment. Asaf Akhtar MD Cardiology: R ecent Hgb 7.8 from 04/14. She is planned to see Dr. Petit (oncology) for further workup and treatment. Likely the cause of her symptoms. Asaf Akhtar MD Cardiology: B ilateral iliac stenting. She had 7x27 (R) and 8x27 (L) express BMS N o claudication today Asaf Akhtar MD Cardiology: F olpros with Dr. DMITRIY Quintana Pt recenlty diagnosed with CKD, Pt is worried abour her cardiac risk. She is also having symptoms. Will obtain echo and stress test Adriana Gutierrezberkley Cardiology: P t having almost constant chest pain. WE will check echo to assess LV function and stress test to rule out ischemic causes Adrianamaddie Gifford Cardiology: P t continues on lovastatin Asaf Akhtar MD Cardiology:Blood pressure contro l is satisfactory. Asaf Akhtar MD Cardiology: Geena randle with Dr. DMITRIY Akhtar MD Cardiology: B ilateral iliac stenting. She had 7x27 (R) and 8x27 (L) express BMS N o claudication today Asaf Akhtar MD Cardiology Hospital Follow up :Lipid panel pending H er updated medication list for this problem includes: Lovastatin 40 Mg Oral Tablet (Lovastatin) ..... Take 1 tablet by mouth once daily in the evening Merline Anderson MD [facility] Follow up :S topped 2007 Merline [facility] MD [facility] Follow up :C heck US Merline [facility] MD [facility] Follow up :Needs cardiac screening. Check echo and stress Merline Anderson MD [facility] Follow up :Bilateral iliac stenting. She had 7x27 (R) and 8x27 (L) express BMS needs Nara Merline [facility] MD [facility] Follow up : H er updated medication list for this problem includes: Aspirin 81 81 Mg Oral Tablet Delayed Release (Aspirin) ..... One tab by mouth daily Lisinopril 10 Mg Oral Tablet (Lisinopril) ..... One tab. daily BP today: 130/80 Merline Anderson MD Date Name Stress Regadenoson Complete Echo Arterial Duplex Bi-L ower EX Sleep Study Home Stress Exercise Card iolite Carotid Duplex Bilat eral Complete Echo HISTORY OF PROCEDURES Procedure Date Procedure Name Provider Procedure Notes S tatus EKG Asaf Akhtar MD complet ed MARCIA Akhtar MD complet ed MARCIA Anderson MD compl eted
--- OUTSIDE RECORDS SUMMARY | 2024-07-28 11:49 | XMS_ITS | Clinical Summary ---
Author Organization [facility] Address [address] [place] [address] Care Team Providers Care Middle Card Tender Name Role Phone Unavailable Primary Care Provider Unavailabl e Source Comments [facility],non-owned Affiliates and Associated Physician Practices is amultiple site organization consisting of ambulatory clinics and hospital sitesin [place], [place], [place] and [place]. This disclosure is being madepursuant to the Care Everywhere program and may not contain all information available regarding this patient. Last updated 17.[facility]ft Allergies No known active allergies Immunizations Immunization Administration Dates Next Due INFLUENZA VACCINE, QUADR. (F LUZONE; FLULAVAL; FLUARIX; AFLURIA QUADRIVALENT; 6MO+), 0.5 ML (IIV4) 01/09/2020,12/15/2018,11/20/2016 iNFLUENZA VACCINE, RECOM-MORAN, QUADR. 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 Gender Identity Not on file Sexual Orientation Not on file Plan of Treatment Health Maintenance Due Date Last Done Comments BONE DENSITY TESTING 1955 COLOGUARD (AGES 45-75) - COLON CA SCREENING 1955 COLON MONITORING 1955 COLONOSCOPY - COLON CA SCREENING 1955 CT COLONOGRAPHY - COLON CA SCREENING 1955 Colorectal Cancer Screening 1955 FIT - COLON CA SCREENING 1955 FLEX SIG - COLON CA SCREENING 1955 LIPID TESTING 1955 MAMMOGRAM 1955 HEPATITIS C SCREENING 08/01/1973 DTAP/TDAP/TD VACCINES (1 - Tdap) 08/05/1974 PNEUMOCOCCAL VACCINE 50+ (1 of 1 - PCV) 08/05/2005 ZOSTER VACCINE (1 of 2) 08/05/2005 COVID-19 VACCINE (1 - 2023- season) 2023 DEPRESSION SCREENING 03/23/2024 INFLUENZA VACCINE (Season Ended) 2024 01/09/2020, 12/15/2018, 12/11/2017, Additional history exists Respiratory Syncytial Virus (RSV) Vaccine Pt: or over 60 yrs (1 - 1-dose 75+ series) 08/05/2030 HEPATITIS B VACCINE Aged Out No longe r eligible based on patient's age to complete this topic HIB VACCINE Aged Out No longer eligi ble based on patient's age to complete this topic HPV VACCINE Aged Out No longer eligi ble based on patient's age to complete this topic MENINGOCOCCAL (Group B) VACCINE SHARED DECISION-MAKING Aged Out No longer eligible based on patient's age to complete this topic MENINGOCOCCAL GROUPS A/C/Y/W VACCINE Aged Out No longer eligible based on patient's age to complete this topic [facility] * Guarantor: JOLIE ORTEGA Account Type Relation to Patient Date of Phone Billing Address Personal/Family [address] [place] [address] [employer] MEDICARE ADV SELF PAY NO INSURANCE Member Subscriber Plan / Payer (Ef fective for All Dates) Name:Jolie Ortega Member ID:Not on file Relation to Subscriber:Not on file Name:JOLIE ORTEGA Subscriber ID:Not on file Address: [address] [place] [address] Payer ID:Not on file Group ID:Not on file Type:Self Pay Address: [place], [place] * Guarantor: JOLIE ORTEGA Account Type Relation to Patient Date of Phone Billing Address Personal/Family [address] [place] [place] [address] [employer] MEDICARE ADV SELF PAY NO INSURANCE Member Subscriber Plan / Payer (Ef fective for All Dates) Name:Jolie Ortega Member ID:Not on file Relation to Subscriber:Not on file Name:JOLIE ORTEGA Subscriber ID:Not on file Address: [address] [place] [address] Payer ID:Not on file Group ID:Not on file Type:Self Pay Address: [place], [place] * Guarantor: JOLIE ORTEGA Account Type Relation to Patient Date of Phone Billing Address Personal/Family [address] [place] [phone] [employer] MEDICARE ADV SELF PAY NO INSURANCE Member Subscriber Plan / Payer (Ef fective for All Dates) Name:Jolie Ortega Member ID:Not on file Relation to Subscriber:Not on file Name:JOLIE ORTEGA Subscriber ID:Not on file Address: [facility] [place] [place] [address] Payer ID:Not on file Group ID:Not on file Type:Self Pay Address: [place], [place]
--- OUTSIDE RECORDS SUMMARY | 2024-07-28 11:49 | XMS_ITS | Continuity of Care Document ---
Author Organization [facility]erg[facility] Address [address] [place] [address] Phone Care Team Providers Care Game Technician Name Role Phone Braxton David DO Unavailable Unavailable Advance Directives Directive Yes / No Effective Date File Name No Information Encounters Encounter Description Practice Location Reason(s) For Visit Diagnoses Date Provider Providers Copied on Encounter [facility], [id number] [place] [address] [address], [place], [place], [id number], [place] tel:[phone] [facility] No Information Joann Velez. [address] [place], [address], [place]. tel: [phone] Family History Family Member Type Diagnosis Age At Onset No Information Payers Payer name Insurance type Covered constitution party ID Authoriza tion(s) No Information Social History [...]
--- OUTSIDE RECORDS SUMMARY | 2024-07-28 11:49 | XMS_ITS ---
Author Organization [facility] Address [address] [place] [address] Care Team Providers Care News Intern Name Role Phone Royer Quintana Unavailable [phone] MEDICATIONS Medication SIG (Take, Route, Frequency, Duration) Notes Start Date End Date Status Farxiga 5 MG Take 1 tablet by qiana th once daily for 90 Active SOCIAL HISTORY Sex Assigned At : Social History Observation Description Sex Assigned At Female Encounters Encounter Location Date Provider Diagnosis [place] [facility] [address] [facility] [address] [place] [address] 04/03/2023 Royer Quintana PLAN OF TREATMENT Medication Medication Name Sig Start Date Stop Date Notes Farxiga 5 MG Take 1 tablet by mouth once daily for 90 Progress Notes * Nichole OLIVARESDOB: [birth year] (67 yo F)Acc No.[id number]:04/03/2023 Patient: Nichole OLIVARES :1955 Age:67 Y Sex:Female Address:[address] [place] [address] * Refills Refill Farxiga Tablet, 5 MG, 90 Tablet, Take 1 tablet by mouth once daily, 90, Refills=0 * true * Date:
--- OUTSIDE RECORDS SUMMARY | 2024-07-28 11:49 | XMS_ITS ---
Author Organization [facility] Address [address] [place] [address] Care Team Providers Care Hacksaw Inspector Name Role Phone QuintanaRamonaRoyer Unavailable [phone] MEDICATIONS Medication SIG (Take, Route, Frequency, Duration) Notes Start Date End Date Status Veltassa 8.4 GM 1 packet dissolved i n water. Take other medications at least 3 hours before or 3 hours after this medication Orally Once a day for 90 day(s) 05/30/2022 Active Sodium Bicarbonate 650 MG 1 tablet Orall y twice a day for 90 days 08/01/2022 Active Ergocalciferol 1.25 MG (57830 UT) 1 capsule Orally Once a week for 90 day(s) 04/04/2022 09/06/2023 Active Farxiga 5 MG Take 1 tablet by qiana th once daily for 90 Active SOCIAL HISTORY Sex Assigned At : Social History Observation Description Sex Assigned At Female Encounters Encounter Location Date Provider Diagnosis [place] [facility] [address] [facility] [address] [place] [address] 05/13/2023 Royer Quintana Chronic kidney disease, stage 3 unspecified N18.30 ; Anemia, unspecified D64.9 ; Hypo-osmolality and hyponatremia E87.1 ; Hyperlipidemia, unspecified E78.5 and Anxiety disorder, unspecified F41.9 ASSESSMENTS Encounter Date Diagnosis Assessment Notes Treatment Notes Treatment Clinical Notes Section Notes 05/13/2023 Chronic kidney disease, stage 3 unspecified (ICD-10 - N18.30) 05/13/2023 Anemia, unspecified (ICD-10 - D64.9) 05/13/2023 Hypo-osmolality and hyponatremia (ICD-10 - E87.1) 05/13/2023 Hyperlipidemia, unspecified (ICD-10 - E78.5) 05/13/2023 Anxiety disorder, unspecified (ICD-10 - F41.9) PLAN OF TREATMENT No Information Progress Notes * Nichole OLIVARESDOB: [birth year] (68 yo F)Acc No.[id number]:05/13/2023 Patient: Nichole OLIVARES Provider: MD GULSHAN, Geena.Jossie.C.P, F.A.S.N. :1955 Age:67 Y Sex:Female Date:05/13/2023 Address:[address] [place] [address] Subjective: * Chief Complaints: Objective: Assessment: * Assessment: 1. Chronic kidney disease, stage 3 unspecified - N18.30 2. Anemia, unspecified - D64.9 3. Hypo-osmolality and hyponatremia - E87.1 4. Hyperlipidemia, unspecified - E78.5 5. Anxiety disorder, unspecified - F41.9 Plan: * Billing Information: * Visit Code: 37127 Office Visit, Est Pt., Level 4. * Procedure Codes: * Sign off status: Pending * Provider: MD GULSHAN, F.Jossie.C.P, F.A.S.N. Date: 05/13/2023
--- OUTSIDE RECORDS SUMMARY | 2024-07-28 11:49 | XMS_ITS | Data Portability ---
Author Organization [place] [facility] [employer], Main Office Address [address] [place] [address] Assessment No assessment recorded. Plan of Treatment Reminders Order Date Submit Date Provider Last Modified By Organization Details Last Modified Time Details Appointments Any 15 2024 08:15A M Perico Cardona MD Not available Not available Not available Lab glycohem oglobin, total, blood 2023 024 [email or web address] 2 [facility] (Lab), [address] [place], [address], 05/23/2024 17:15:13 CMP, serum or plasma 2023 024 [email or web address] [facility] (Lab), [address] [place], [address], 07/27/2024 10:58:24 lipid panel, serum 2023 024 [email or web address] 2 [facility] (Lab), [address] [place], [address], 05/23/2024 17:16:27 Referral None recorded . Procedures None recorded . Surgeries None recorded . Imaging None recorded . Medication Orders None recorded . Patient TargetsNo targets recorded. Patient Instructions Encounter Date Encounter Id Patient Instructions Last Modified By Organization Details Last Modified Time 03/09/2024 [id number] dementia rating scale-2* Not available 03/09/2024 17:14:41 depression screening* Not available 03/09/2024 17:14:41 alcohol misuse* Not available 03/09/2024 17:14:40 multi-dimensiona l health assessment questionnaire* Not available 03/09/2024 17:14:41 advance directiv es: care instructions Not available 03/09/2024 17:14:41 advance care planning: care instructions Not available 03/09/2024 17:14:41 [place] Advance Directives Not available 03/09/2024 17:14:41 Personalized Hea lth Plan and Screening Recommendations Advance Directives - Do you have one? No You have indicated that you are capable of preparing your advance care directive Advance Directives - Do we have your advance directive on file in your health record? No, please bring in a copy at your earliest convenience Primary Prevention/Interven tion (prevents or decreases the chance of common diseases from occurring) Smoking Risk: Non Smoker Alcohol Misuse Screening: Negative Weight: Appropriate Overwei ght continue your current weight loss efforts try to lose 5% of your body weight try to lose 10% of your body weight Physical activity: Need more exercise/physical activity minimum of 10-20 minutes of activity that causes mild breathlessness/day Nutrition: Good Fall Risk (screened today): Low Vaccines Pneumococcal: Ordered Recommended today Recommended today, but you have declined Influenza: Ordered Recommended today Recommended today, but you have declined Chronic Disease Risks Stroke: Low Risk Intermediate Risk I have no recommendations Act soha diagnosis, Continue current treatment plan Heart Attack: Low risk Intermediate Risk I have no recommendations Act soha diagnosis, Continue current treatment plan Clogging of the Arteries: Low risk Intermediate Risk I have no recommendations Act soha diagnosis, Continue current treatment plan Diabetes: Low Risk I have no recommendations Secondary Prevention/Interven tion (detects treatable diseases before they may cause symptoms, disability, or ) Breast Cancer Screening with mammogram: No screening necessary Cervical/Uterine/Ov sharmaine Cancer Screening: No screening necessary Osteoporosis Screening: Your next DEXA in: Ordered Recomme nded today Date Screening Last Performed: Colon Cancer Screening: No screening necessary Date Screening Last Performed: Eye Disease Screening: Ordered Recommended today Dementia Risk: Low I have no recommendations Depression Screening: Negative [email or web address] Not available 03/09/2024 11:17:11 Reason for Referral None Reported. Results Created Date Observation Date Name Description Value Unit Range Abnormal Flag Note LastModifiedBy Organization Detail LastModifiedTime Result Notes None recorded. Problems Name Problem SNOMED Code Status Onset Date Resolution Date Notes Provider Name and Address Organization Details Recorded Time Herpes labialis 5082650 Active 2021 Not Available [facility] 4 13:42:33 Backache 652228798 Active 2021 Not Available [facility] 4 13:42:33 Liver function tests outside reference range 020599667 Active 2021 Not Available [facility] 4 13:42:33 Insomnia 869716340 Active 2022 FADY Raygoza null, [place] - [employer] 4 08:52:23 Acute herpes simplex pharyngiti s 331012258 Completed 202103/19/2022 Not Available [facility] 3 13:13:17 Gastroesop hageal reflux disease 451829604 Active 2020 Not Available [facility] 4 13:42:33 Thoracic back pain 524744505 Active 2022 Not Available [facility] 4 13:42:33 Chest pain 35230308 Active 2021 Not Available [facility] 4 13:42:33 Lesion of liver 762223334 Active 2021 Not Available [facility] 4 13:42:33 Diaz's esophagus 860081586 Active 2020 Not Available [facility] 4 13:42:33 Osteopenia 135754877 Active 2020 Not Available [facility] 4 13:42:33 Depressive disorder 26656702 Active 2020 Not Available [facility] 4 13:42:33 Malignant tumor of colon 871289020 Active 2020 Not Available [facility] 4 13:42:33 Peripheral vascular disease 278056467 Active 2020 Not Available [facility] 4 13:42:33 Nausea 244409128 Completed 202203/09/2024 FADY Raygoza null, [place] - [facility] 4 08:52:26 Cardiovasc ular stress test abnormal 720059282 Active 2021 Not Available [facility] 4 13:42:33 Anxiety 52920371 Active 2020 Not Available [facility] 4 13:42:33 Hyperlipid emia 38646128 Active 2020 Not Available [facility] 4 13:42:33 Essential hypertensi on 30296035 Active 2020 Not Available [facility] 4 13:42:33 Carotid artery stenosis 71643120 Active 2020 Not Available [facility] 4 13:42:33 Hyperglyce kiko 46995352 Active 2020 Not Available [facility] 4 13:42:33 Closed fracture of phalanx of foot 99938042 Completed Not Available [facility] 3 13:13:18 Hiatal hernia 02151482 Active 2022 Not Available [facility] 4 13:42:33 Ex-smoker 4513285 Active 2020 Not Available [facility] 4 13:42:33 Iron deficiency anemia 91629086 Active 2020 Not Available [facility] 4 13:42:33 Kidney disease 53969952 Active 2021 Not Available [facility] 4 13:42:33 Chronic fibrosis of lung 15332518 Active 2022 FADY Raygoza null, [facility] 4 08:52:16 Splenomega ly 16071310 Active 2022 FADY Raygoza null, [facility] 4 08:52:35 Pulmonary emphysema 17962664 Active 2022 FADY Raygoza null, [facility] 4 08:52:30 Chronic kidney disease 207222915 Active 2023 Humera bo FADY svetlana, [facility] 4 08:52:20 Problem Notes None recorded. Procedures Surgical History Date Name Laterality Status Provider Name and Address Organization Details Recorded Time 4 Medicare Wellness CPT Code, subsequent completed Zohreh Flores RN [facility] 03/09/2024 10:50:03 4 Advanced Care Planning completed Zohreh Flores RN [facility] 03/09/2024 11:14:10 Imaging Results None recorded. Procedure Notes None recorded. Medical Equipment None Reported. Allergies Allergen ID Allergen Name Allergen Category Reaction Reaction Severity Criticality Documentation Date Start Date Code Code System Note Provider Name and Address Organization Details Recorded Time 47916 iron medicatio n vomiting Not available Not available 05/21/2022 46406 RxNorm aller gic to I/V BUT not to oral FESO4 Not Available [facility] 3 13:15:27 Medications Name Sig Start Date Stop Date Status Note LastModified by Organization Details LastModified Time cyclobenz aprine 10 mg tablet TAKE 1 TABLET BY MOUTH THREE TIMES DAILY NEEDED FOR MUSCLE SPASM 08/09 completed Not Available Not Available Not Available amoxicill in 500 mg capsule 03/25 completed Not Available Not Available Not Available metformin 500 mg tablet 06/28 completed Not Available Not Available Not Available venlafaxi ne ER 75 mg capsule,e xtended release 24 hr TAKE 1 CAPSULE BY MOUTH ONCE DAILY IN THE MORNING 03/26 completed Not Available Not Available Not Available tizanidin e 2 mg tablet TAKE 1 TABLET BY MOUTH TWICE DAILY NEEDED FOR 10 DAYS 08/09 completed Not Available Not Available Not Available triazolam 0.25 mg tablet TAKE ONE TABLET BY MOUTH 1 HOUR BEFORE APPOINTM ENT. MUST HAVE TRANSPOR TATION 03/25 completed Not Available Not Available Not Available ibuprofen 800 mg tablet TAKE 1 TABLET BY MOUTH THREE TIMES DAILY NEEDED FOR PAIN 08/09 completed Not Available Not Available Not Available hydrocodo ne 5 mg-acetam inophen 325 mg tablet TAKE 1 TABLET BY MOUTH EVERY 4 TO 6 HOURS NEEDED FOR PAIN 03/26 completed Not Available Not Available Not Available lisinopri l 20 mg tablet Take 1 tablet by mouth once daily 03/09 completed ROSA 11/05/23 NOV 03/09/24 ok to rf Not Available Not Available Not Available ondansetr on HCl 4 mg tablet Take 1 tablet 3 times a day by oral route as needed. active Not Available Not Available No t Available famotidin e 40 mg tablet TAKE 1 TABLET BY MOUTH EVERY DAY AT BEDTIME active Not Available Not Available No t Available lovastati n 40 mg tablet TAKE 1 TABLET BY MOUTH ONCE DAILY IN THE EVENING active Not Available Not Available No t Available venlafaxi ne ER 150 mg capsule,e xtended release 24 hr Take 1 capsule every day by oral route for 90 days. 03/26 completed Not Available Not Available Not Available Wellbutri n SR 150 mg tablet, 12 hr sustained -release Take 2 tablets every day by oral route. 08/09 completed Not Available Not Available Not Available sodium bicarbona te (antacid) 650 mg tablet Take 2 mg twice a day by oral route in the morning. active Not Available Not Available No t Available clopidogr el 75 mg tablet TAKE 1 TABLET BY MOUTH ONCE DAILY active KURIA Not Available Not Available No t Available prochlorp erazine maleate 10 mg tablet 06/28 completed Not Available Not Available Not Available acyclovir 400 mg tablet TAKE 1 TABLET BY MOUTH EVERY 8 HOURS active Not Available Not Available No t Available tramadol 50 mg tablet Take 1 tablet every 6-8 hours by oral route as needed. 11/04 completed Approved tramadol . Valid: 04/25/22-8 05/15. PA# [id number] SS.Juancho celestin 07/23/22 #30 severe pain only Not Available Not Available Not Available quetiapin e 100 mg tablet Take 1 tablet every day by oral route. active Dr. Capps Not Available Not Available Not Available lamotrigi ne 25 mg tablet TAKE 3 TABLETS BY MOUTH TWICE DAILY 06/28 completed Not Available Not Available Not Available ketorolac 10 mg tablet TAKE 1 TABLET BY MOUTH ONCE DAILY NEEDED FOR PAIN 08/09 completed Not Available Not Available Not Available amoxicill in 875 mg tablet 03/26 completed Not Available Not Available Not Available sodium bicarbona te 650 mg tablet TAKE 1 TABLET BY MOUTH TWICE DAILY active Not Available Not Available No t Available baclofen 10 mg tablet TAKE 1 TABLET BY MOUTH AT BEDTIME 08/09 completed Not Available Not Available Not Available cephalexi n 500 mg capsule 06/28 completed Not Available Not Available Not Available pantopraz ole 40 mg tablet,de layed release TAKE 1 TABLET BY MOUTH EVERY 12 HOURS 08/09 completed Not Available Not Available Not Available acyclovir 5 % topical ointment APPLY TO THE AFFECTED AREA(S) BY TOPICAL ROUTE EVERY 3 HOURS 6 TIMES PER DAY 11/28 completed Not Available Not Available Not Available esomepraz ole magnesium 40 mg capsule,d elayed release TAKE 1 CAPSULE BY MOUTH ONCE DAILY active Not Available Not Available No t Available lisinopri l 10 mg tablet TAKE 1 TABLET BY MOUTH ONCE DAILY 11/12 completed increase d to 20 mg daily Not Available Not Available Not Available fluoxetin e 10 mg capsule 06/28 completed Not Available Not Available Not Available hydroxyzi ne HCl 25 mg tablet Take 1 tablet 3 times a day by oral route. active Dr. Capps Not Available Not Available Not Available zolpidem 5 mg tablet TAKE 1 TABLET BY MOUTH NIGHTLY active Not Available Not Available No t Available ergocalci ferol (vitamin D2) 1,250 mcg (50,000 unit) capsule TAKE 1 CAPSULE BY MOUTH ONCE A WEEK ON THURSDAY active Not Available Not Available No t Available methylpre dnisolone 4 mg tablets in a dose pack TAKE BY MOUTH DIRECTED ON INSIDE OF PACKAGE 08/09 completed Not Available Not Available Not Available hydroxyzi ne HCl 10 mg tablet TAKE 1 TABLET BY MOUTH ONCE DAILY active Not Available Not Available No t Available fluoxetin e 20 mg capsule TAKE 1 CAPSULE BY MOUTH ONCE DAILY 08/09 completed Not Available Not Available Not Available calcitrio l 0.25 mcg capsule TAKE 1 CAPSULE BY MOUTH ONCE DAILY active Not Available Not Available No t Available ferrous sulfate ER 325 mg (65 mg iron) capsule,e xtended release Take 65 mg twice a day by oral route as directed . active Not Available Not Available No t Available escitalop misty 10 mg tablet TAKE 1 TABLET BY MOUTH ONCE DAILY 08/09 completed Not Available Not Available Not Available escitalop misty 20 mg tablet TAKE 1 TABLET BY MOUTH ONCE DAILY IN THE MORNING 08/09 completed Not Available Not Available Not Available bupropion HCl XL 300 mg 24 hr tablet, extended release TAKE 1 TABLET BY MOUTH ONCE DAILY IN THE MORNING active Not Available Not Available No t Available bupropion HCl XL 150 mg 24 hr tablet, extended release TAKE 1 TABLET BY MOUTH ONCE DAILY 08/09 completed Not Available Not Available Not Available duloxetin e 30 mg capsule,d elayed release TAKE 1 CAPSULE BY MOUTH ONCE DAILY FOR 7 DAYS THEN STOP 08/09 completed Not Available Not Available Not Available duloxetin e 60 mg capsule,d elayed release TAKE 1 CAPSULE BY MOUTH ONCE DAILY FOR 30 DAYS 08/09 completed Not Available Not Available Not Available aripipraz ole 07/14 completed Not Available Not Available Not Available aripipraz ole 2 mg tablet TAKE 1 TABLET BY MOUTH ONCE DAILY active Not Available Not Available No t Available FeroSul 325 mg (65 mg iron) tablet TAKE 1 TABLET BY MOUTH ONCE DAILY 11/12 completed Not Available Not Available Not Available vilazodon e 40 mg tablet TAKE 1 TABLET BY MOUTH ONCE DAILY WITH FOOD FOR 90 DAYS active Not Available Not Available No t Available vilazodon e 20 mg tablet 03/26 completed Not Available Not Available Not Available Farxiga 5 mg tablet TAKE 1 TABLET BY MOUTH ONCE DAILY FOR 90 DAYS 11/[address] Quintana- for CKD Not Available Not Available Not Available ID NOW COVID-19 Test Kit TEST DIRECTED TODAY 02/19 completed Not Available Not Available Not Available Vitals Date Recorded Body height Body temperature Heart rate Oxygen saturation Oxygen saturation in Arterial blood by Pulse oximetry Body mass index (BMI) Body weight Systolic blood pressure Diastolic blood pressure Provider Name and Address Organization Details Last Updated DateTime 3 166.37 cm 97.9 [degF] 86 /min 97 % 97 % 29.5 kg/m2 49360.6 3 g 110 mm[Hg] 68 mm[Hg] Cami Simons CMA [place] [employer] [facility] 3 14:39:05 Date Recorded Body height Body mass index (BMI) Body weight Heart rate Oxygen saturation Oxygen saturation in Arterial blood by Pulse oximetry Systolic blood pressure Diastolic blood pressure Provider Name and Address Organization Details Last Updated DateTime 4 166.37 cm 32 kg/m2 07509.5 1 g 92 /min 97 % 97 % 108 mm[Hg] 68 mm[Hg] FADY Mendoza [facility] [employer] [facility] 4 14:37:47 Date Recorded Body height Body temperature Heart rate Oxygen saturation Oxygen saturation in Arterial blood by Pulse oximetry Body mass index (BMI) Body weight Systolic blood pressure Diastolic blood pressure Provider Name and Address Organization Details Last Updated DateTime 4 166.37 cm 98.2 [degF] 80 /min 98 % 98 % 32.8 kg/m2 20658.4 7 g 112 mm[Hg] 72 mm[Hg] Una Robles [facility] [employer] [facility] 4 11:22:42 Date Recorded Body weight Body temperature Heart rate Oxygen saturation Oxygen saturation in Arterial blood by Pulse oximetry Systolic blood pressure Diastolic blood pressure Provider Name and Address Organization Details Last Updated DateTime 4 07080.3 3 g 98 [degF] 76 /min 97 % 97 % 90 mm[Hg] 68 mm[Hg] Brit kumar [facility] [employer] [facility] 4 10:03:39 Date Recorded Body mass index (BMI) Body height Pain severity - 0-10 verbal numeric rating [Score] - Reported Provider Name and Address Organization Details Last Updated DateTime 03/09/2024 31.6 kg/m2 166.37 cm 2 Zohreh Flores RN [facility] [employer] [facility] 03/09/2024 10:50:26 Date Recorded Body height Body mass index (BMI) Body weight Body temperature Heart rate Oxygen saturation Oxygen saturation in Arterial blood by Pulse oximetry Systolic blood pressure Diastolic blood pressure Provider Name and Address Organization Details Last Updated DateTime 5 166.37 cm 31.8 kg/m2 80480.9 2 g 97 [degF] 72 /min 94 % 94 % 120 mm[Hg] 70 mm[Hg] Humera sigala Jossie [facility] [employer] [facility] 5 09:02:17 Social History Question Answer Notes LastModified by Organization Details LastModified Time Tobacco Smoking Status Former Smoker Quit in 2007 Beba mota [facility] [employer] [facility] 02/18/2023 14:21:49 Do You Have An Advance Directive? No [id number] Information not available 05/21/2022 What Is Your Level Of Alcohol Consumption? None [id number] Information not available 05/21/2022 Are You Blind Or Do You Have Difficulty Seeing? No Information not available 02/18/2023 What Is Your Level Of Caffeine Consumption? None [id number] Information not available 05/21/2022 How Much Tobacco Do You Chew? None [id number] Information not available 05/21/2022 In The 14 Days Before Symptom Onset, Have You Had Close Contact With A Laboratory-confi rmed COVID-19 While That Case Was Ill? No Information not available 02/18/2023 In The 14 Days Before Symptom Onset, Have You Had Close Contact With A Person Who Is Under Investigation For COVID-19 While That Person Was Ill? No Information not available 02/18/2023 Are You Currently Employed? Yes [email or web address] Information not available 03/09/2024 Are You Deaf Or Do You Have Serious Difficulty Hearing? No Information not available 02/18/2023 What Type Of Diet Are You Following? REGULAR [id number] Information not available 05/21/2022 Which Illicit Or Recreational Drugs Have You Used? Marijuana Information not available 02/18/2023 What Is The Highest Grade Or Level Of School You Have Completed Or The Highest Degree You Have Received? 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 5 [email or web address] Information not available 03/09/2024 On Those Days That You Engage In Moderate To Strenuous Exercise, How Many Minutes, On Average, Do You Exercise? 10 [email or web address] Information not available 03/09/2024 Have There Been Any Changes To Your Family Or Social Situation? No Information not available 02/18/2023 What Is The Fluoride Status Of Your Home? Unknown Information not available 02/18/2023 When Did You Quit Smoking? 16+yearssincelastc igarette [email or web address] Information not available 03/09/2024 Are There Any Guns Present In Your Home? No Information not available 02/18/2023 How Many Years Have You Used Illicit Or Recreational Drugs? 35 Start Age 18, Break Between 27-42 Yo [email or web address] Information not available 03/09/2024 Do You Use Insect Repellent Routinely? No [email or web address] Information not available 03/09/2024 Where Do You Live? SingleLevelHouse Information not available 02/18/2023 Do You Have A Medical Power Of Mortgage Loan Originator? No Information not available 02/18/2023 What Was The Date Of Your Most Recent Tobacco Screening? 03/09/2024 [email or web address] Information not available 03/09/2024 How Many Children Do You Have? 0 [email or web address] Information not available 03/09/2024 What Is Your Current Pack Years? 30ormorepackyears [email or web address] Information not available 03/09/2024 Do You Have Any Pets? Yes Information not available 02/18/2023 What Is Your Relationship Status? Single [email or web address] Information not available 03/09/2024 Do You Use Your Seat Belt Or Car Seat Routinely? Yes [email or web address] Information not available 03/09/2024 Are You Sexually Active? No [email or web address] Information not available 03/09/2024 Do You Have Smoke And Carbon Monoxide Detectors In Your Home? Yes Information not available 02/18/2023 At What Age Did You Start Smoking Tobacco? 20 Information not available 02/18/2023 Are You Passively Exposed To Smoke? No Information not available 02/18/2023 Are There Any Smokers In Your House? No Information not available 02/18/2023 How Much Tobacco Do You Smoke? 1 PPD [id number] Information not available 05/21/2022 What Types Of Sporting Activities Do You Participate In? None [email or web address] Information not available 03/09/2024 Do You Feel Stressed (tense, Restless, Nervous, Or Anxious, Or Unable To Sleep At Night)? [id number] [email or web address] Information not available 03/09/2024 Do You Use Any Illicit Or Recreational Drugs? Yes Information not available 02/18/2023 Do You Use Sunscreen Routinely? No [email or web address] Information not available 03/09/2024 Has Tobacco Cessation Counseling Been Provided? No [email or web address] Information not available 03/09/2024 How Many Years Have You Smoked Tobacco? 32 [email or web address] Information not available 03/09/2024 Have You Recently Traveled Abroad? No Information not available 02/18/2023 Have You Used IV Drugs? No [email or web address] Information not available 03/09/2024 Do You Have Any Dietary Restrictions? No Information not available 02/18/2023 Do You Or Have You Ever Used Any Other Forms Of Tobacco Or Nicotine? No [email or web address] Information not available 03/09/2024 Sex: Female Functional Status Question Answer Note LastModified by Organizat ion Details LastModified Time Do you have difficulty walking or climbing stairs? No Information not available 02/18/2023 Do you have transportation difficulties? No Information not available 02/18/2023 Are you able to walk? [email or web address] Information not available 02/18/2023 Do you have difficulty doing errands alone? No Information not available 02/18/2023 Are you able to care for yourself? Yes Information n ot available 02/18/2023 Do you have difficulty dressing or bathing? No Information not available 02/18/2023 What is your exercise level? Occasional [id number] Information not available 05/21/2022 Mental Status Question Answer Note LastModified by Organization D etails LastModified Time Do you have difficulty concentrating, remembering or making decisions? No Information no t available 02/18/2023 Family History Relationship Description Onset Age of this Age Resolved Age Notes LastModified by Organization Details LastModified Time Mother Essential hypertension Not available 11:09:02 Mother Diabetes mellitus [id number] [id number] Not available 05/21/2022 13:12:36 Mother Depressive disorder [id number] [id number] Not available 05/21/2022 13:12:36 Sister Essential hypertension -X2 Not available 11:09:02 Sister Family history of malignant neoplasm Not available 2023 11:09:02 Sister Diabetes mellitus [id number].464 [id number] Not available 05/21/2022 13:12:36 Sister Depressive disorder X2 [id number] [id number] Not available 05/21/2022 13:12:36 Father Family history of malignant neoplasm Not available 2023 11:09:02 Brother Depressive disorder 39 suicid e [id number].516 [id number] Not available 05/21/2022 13:12:36 Medical History No medical history recorded. Gynecological HistoryNo gynecological history recorded. Obstetrics History GPAL:G 0 P 0 0 0 0 Past Encounters Encounter ID Performer Location Encounter Start Date Encounter Closed Date Diagnosis/Indication Diagnosis SNOMED-CT Code Diagnosis ICD10 Code Diagnosis Note [id number] Perico Cardona [place] [place] [facility] [address] [place] [address]. [place] [address] 07/12/2020 00:00:00 07/12/2020 14:36:12 [id number] Perico Cardona MD [facility] [place] [facility] [address] [place] [address] 08/09/2020 00:00:00 08/09/2020 17:10:34 [id number] MD SIMEON [facility] [address] [place] [address] 08/27/2020 00:00:00 08/27/2020 15:03:09 [id number] Perico Cardona MD [facility] [place] [facility] [address] [place] [address]. [place] [address] 11/12/2020 00:00:00 11/13/2020 13:14:18 [id number] Perico Cardona MD [facility] [place] [facility] [address] [place] [address] 11/20/2020 00:00:00 11/20/2020 13:07:44 [id number] Perico Cardona MD [facility] [address] [place] [address]. [place] [address] 03/25/2021 00:00:00 03/25/2021 10:55:31 [id number] Perico Cardona MD [facility] [place] [facility] [address] [facility] [place] [address] 07/02/2021 00:00:00 07/02/2021 17:08:37 [id number] Perico Cardona MD [facility] [place] [facility] [address] [facility] [facility] [place] [address] 2021 00:00:00 2021 16:37:29 [id number] Perico Cardona MD [facility] [place] [facility] [address] [facility] [place] [address] 03/26/2022 00:00:00 03/26/2022 13:08:37 [id number] Perico Cardona MD [facility] [place] [facility] [address] [facility] [place] [address] 04/23/2022 00:00:00 04/23/2022 13:03:15 [id number] Perico Cardona MD [facility] [place] [facility] [address] [facility] [place] [address] 05/15/2022 00:00:00 05/15/2022 11:25:24 [id number] Perico Cardona MD [facility] [place] [address] [place] [address] 07/24/2022 09:48:39 07/24/2022 10:20:12 Essential hypertension 24035036 I10 better Peripheral vascular disease 489096595 I73.9 s/p stent, no symptoms Hyperlipidemia 88578408 E78.5 labs good Gastroesop hageal reflux disease 122559028 K21.9 meds help Diaz's esophagus 3029 37862 K22.70 get EGD Malignant tumor of colon 823948223 C18.9 no recurrence Iron defic iency anemia 68545412 D50.[address] Renal insufficiency 7231 48961 N28.9 improving Depressive disorder 3548 9007 F32.9 under control Anxiety 23326670 F41.9 under control Hyperglycemia 04150986 R 73.9 better Lesion of liver 77630926 0 K76.9 MRI liver needed for f/u Cardiovasc ular stress test abnormal 118956524 R94.39 seeing cardiology , recent stress test came back nl 06/12 Insomnia 445750330 G47.0 0 on zolpidem Adult [facility] examination 573725503 Z00.00 Colonoscop y- 2019- Dr. White (not in chart)- NLMammogra m- NEVER- DOES NOT WANTDexa- 08/02/2020 Pneumovax- Had at a previous 2014?11/2019COVI D- Moderna- has gotten two shots [id number] Perico Cardona MD [facility] [address] [facility] [place] [address] 11/28/2022 09:54:33 11/28/2022 10:39:38 Essential hypertension 06083771 I10 under control Peripheral vascular disease 259114514 I73.9 s/p stent, no symptoms Hyperlipidemia 90164706 E78.5 labs good Gastroesop hageal reflux disease 845934193 K21.9 meds help Diaz's esophagus 3029 26473 K22.70 no symptoms Malignant tumor of colon 188085195 C18.9 no recurrence Iron defic iency anemia 24531395 D50.[address] Depressive disorder 3548 9007 F32.9 under control Anxiety 23857300 F41.9 under control Hyperglycemia 99414064 R 73.9 watching diet Lesion of liver 96276808 0 K76.9 Cardiovasc ular stress test abnormal 428902312 R94.39 seeing cardiology , recent stress test came back nl 06/12 Insomnia 667801099 G47.0 0 on zolpidem Adult [facility] examination 602916112 Z00.00 Colonoscop y- 2019- Dr. White (not in chart)- NLLDCT- 04/03/2022 Mammogram- NEVER- DOES NOT WANTDexa- 08/02/2020 Pneumovax- Had at a previous 2014?FLU11/2019COVI D- Moderna- has gotten two shots [id number] Perico Cardona MD [facility] [address] [facility] [place] [address] 02/18/2023 14:21:07 02/18/2023 15:38:44 Kidney disease 55883083 N08 getting worse, seeing nephrology Chronic fi brosis of lung 58728929 J84.10 mild, no symptoms, getting CT chest next time Splenomegaly 80461561 R1 6.[address] Petit Pulmonary emphysema 8743 3001 J43.9 no symptoms [id number] Perico Cardona MD [facility] [place] [facility] [address] [place] [address] 07/07/2023 14:29:37 07/07/2023 14:58:03 Essential hypertension 78955320 I10 under control Peripheral vascular disease 432901955 I73.9 s/p stent, no symptoms Hyperlipidemia 04321050 E78.5 under control Gastroesop hageal reflux disease 324128549 K21.9 meds help Diaz's esophagus 3029 44351 K22.70 no symptoms Malignant tumor of colon 007852548 C18.9 no recurrence Iron defic iency anemia 10615182 D50.[address] Depressive disorder 3548 9007 F32.9 under control Anxiety 91697430 F41.9 under control Hyperglycemia 01576985 R 73.9 watching diet, under control Cardiovasc ular stress test abnormal 488842642 R94.39 seen cardiology , recent stress test came back nl 06/12 Insomnia 825250936 G47.0 0 on zolpidem Adult heal th examination 999485071 Z00.00 Colonoscop y- 2019- Dr. White (not in chart)- NLLDCT- 04/03/2022 , does not qualify any moreMammog misty- NEVER- DOES NOT WANTDexa- 08/02/2020 Pneumovax- Had at a previous dr - 2014?FLU- 11/2019COVI D- Moderna- has gotten two shots Kidney disease 33458412 N08 getting worse, seeing nephrology History of malignant neoplasm of colon 979955354 Z85.038 colonoscop y in 2019 [id number] Perico Cardona MD [facility] [place] [facility] [address] [facility] [place] [address] 11/05/2023 11:07:24 11/05/2023 11:53:01 Essential hypertension 50557088 I10 under control Peripheral vascular disease 393506432 I73.9 s/p stent, no symptoms Hyperlipidemia 47584815 E78.5 under control Gastroesop hageal reflux disease 673859328 K21.9 meds help Diaz's esophagus 3029 52115 K22.70 no symptoms Malignant tumor of colon 930551698 C18.9 no recurrence Iron defic iency anemia 08588230 D50.[address] Depressive disorder 3548 9007 F32.9 under control with meds Anxiety 78111849 F41.9 under control Hyperglycemia 88830624 R 73.9 watching diet, under control, not losing weight Cardiovasc ular stress test abnormal 971231327 R94.39 seen cardiology , recent stress test came back nl 06/12 Insomnia 452608921 G47.0 0 on zolpidem, helps when takes Adult heal th examination 157631333 Z00.00 Colonoscop y- 2019- Dr. White (not in chart)- NLLDCT- 04/03/2022 , does not qualify any moreMammog misty- NEVER- DOES NOT WANTDexa- 08/02/2020 Pneumovax- Had at a previous dr - 2014?FLU- 11/2019COVI D- Moderna- has gotten two shots Kidney disease 85882402 N[address] Conroy History of malignant neoplasm of colon 531144739 Z85.038 colonoscop y in 2019, due next year [id number] Perico Cardona MD [facility] [address] [place] [address] 03/09/2024 09:48:22 03/09/2024 10:47:41 Essential hypertension 97232760 I10 low, stop Lisinopril Peripheral vascular disease 522239216 I73.9 s/p stent, no symptoms Hyperlipidemia 99174323 E78.5 under control Gastroesop hageal reflux disease 638290416 K21.9 meds help Diaz's esophagus 3029 15933 K22.70 no symptoms Malignant tumor of colon 700461993 C18.9 no recurrence Iron defic iency anemia 64993260 D50.[address] Depressive disorder 3548 9007 F32.9 under control with meds Anxiety 12593633 F41.9 under control Hyperglycemia 35763672 R 73.9 watching diet, under control, not losing weight Insomnia 300743016 G47.0 0 on zolpidem, helps when takes Adult heal th examination 806322862 Z00.00 Colonoscop y- 2019- Dr. White (not in chart)- NLLDCT- 04/03/2022 , does not qualify any moreMammog misty- NEVER- DOES NOT WANTDexa- 08/02/2020 Pneumovax- Had at a previous - 2014?11/2019COVI D- Moderna- has gotten two shots Kidney disease 08644090 N[address] Conroy, low but stable GFR History of malignant neoplasm of colon 917704452 Z85.038 colonoscop y in 2019, due BUT WANTS TO WAIT Screening for disorder 193653824 Z13.9 [id number] Perico Cardona MD [facility] [address] [facility] [place] [address] 07/14/2024 08:51:21 07/14/2024 10:20:59 Essential hypertension 63706782 I10 no meds needed Peripheral vascular disease 578822294 I73.9 s/p stent, no symptoms Hyperlipidemia 60187061 E78.5 under control Gastroesop hageal reflux disease 020527468 K21.9 meds help Diaz's esophagus 3029 65272 K22.70 no symptoms Malignant tumor of colon 102510751 C18.9 no recurrence Iron defic iency anemia 13297385 D50.9 stable Depressive disorder 3548 9007 F32.9 under control with meds Anxiety 46592490 F41.9 under control Hyperglycemia 55549676 R 73.9 watching diet, under control, not losing weight Insomnia 157642934 G47.0 0 on zolpidem, helps when takes Adult heal th examination 234609625 Z00.00 Colonoscop y- 2019- Dr. White (not in chart)- NLLDCT- 04/03/2022 , does not qualify any moreMammog misty- NEVER- DOES NOT WANTDexa- 08/02/2020 Pneumovax- Had at a previous - 2014?11/2019COVI D- Moderna- has gotten two shots Kidney disease 31329979 N[address] Conroy, low but stable GFR History of malignant neoplasm of colon 183498987 Z85.038 colonoscop y in 2020, due BUT WANTS TO WAIT Health Concerns Section Related Observation LastModified by Organization Detai ls LastModified Time None Recorded Concern Status LastModified by Organization Details LastModified Time None Recorded Advance Directives Directive N: Payers Encounter Date Sequence Insurance Name Policy Number Policy [place] Covered Member ID Hogue Member ID Guarantor Name 02/18/2023 1 [employer] - DOS ON OR AFTER 20 - [facility] B[facility] (PPO) Nichole K Besserman [id number] Nichole K Besserman 07/07/2023 1 [employer] - DOS ON OR AFTER 20 - [facility] B[employer]EF[employer] [facility] (PPO) Nichole K Besserman [id number] Nichole K Besserman 11/05/2023 1 [employer] (MEDICARE REPLACEMENT PPO) [id number] Nichole K Besserman [id number] Nichole K Besserman 03/09/2024 1 [employer] (MEDICARE REPLACEMENT PPO) [id number] Nichole K Besserman [id number] Nichole K Besserman 07/14/2024 1 [employer] (MEDICARE REPLACEMENT PPO) [id number] Nichole K Besserman [id number] Nichole K Besserman Notes Date Note Type Note Provider Name and Address Organization Details Recorded Time 02/18/2023 text/html Pt is here to [facility] labs and nephrology appointment. she has kidney disease, GFR was 37, 35, 31 Anemia- seeing dr Petit, nothing new Mild pulm fibrosis seen on the CT abd, no symptoms Hiatal hernia- old, seen on EGD splenomegaly- seen on CT abd Perico Cardona MD [address] [facility], [facility] [address], [place], [address], [facility] [employer] 02/18/2023 15:39:19 07/07/2023 text/html Patient here tosabi turner for routine appt.HTN- on meds and under controlMeds-- Lisinopril 20mg dailyHyperlipidemia- on meds, and diet, labs goodMeds- Lovastatin 40mg dailyDepression and anxiety- sees psych, Dr Capps , under control, sleeps fine with meds from psych, getting therapyMeds- Bupropion XL 300mg daily, Vilazodone 40mg dailyEx-smoker- quit in 2007 after smoking 2ppd for 35 yrsGERD- on meds and betterMeds- Esomeprazole 40mg daily Diaz's esophagus- gets EGD, last one in 04/14 (hiatal hernia, esophagitis, GERD )Insomnia- Takes meds as neededMeds- Zolpidem 5mg HS PRNAnemia- had nl colonoscopy and EGD, was seeing hematology, was on iv iron infusion, seeing Dr Isaacs- s/p angioplasty, no more symptoms, dr matute cancer s/p resection in 1998, gets colonoscopy regularly , last one in 2019, Dr Ayonatal hernia repair in the past Vitamin D def- Takes Vitamin D 50,000u once every ThursdayHyperglycemia - advised to watch diet, A1c 5.1Kidney disease- GFR was 16 in the hospital, went up to 56 with hydration, seeing nephrology, now 30Meds- on Farxiga 5mg dailyAbn stress test, now seeing Dr Akhtar ( no consult reports )Liver lesion- MRI of 04/14 revealed possible cyst but was non contrast MRI, will get CT scan for f/u but lesion is stable since 2020. Perico Cardona MD [address] [place] [address], [facility] [address], [place], [address], [place] [facility] [employer] 07/07/2023 14:57:06 11/05/2023 text/html Patient here tod ay for f/u appt. Pt compliant to meds. Pt reports feeling well. Pt stated got a Procrit inject. (10/29/23) Dr. 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 (assistant public defender)HTN- on meds and under controlMeds-- Lisinopril 20mg dailyHyperlipidemia- on meds, and diet, labs dueMeds- Lovastatin 40mg dailyDepression and anxiety- sees Dr Jefry correia , under control, sleeps fine with meds from psych, getting therapyMeds- Bupropion XL 300mg daily, Vilazodone 40mg dailyEx-smoker- quit in 2007 after smoking 2ppd for 35 yrsGERD- on meds and betterMeds- Esomeprazole 40mg daily Diaz's esophagus- gets EGD, last one in 04/14 (hiatal hernia, esophagitis, GERD )Insomnia- Takes meds as neededMeds- Zolpidem 5mg HS PRNAnemia- had nl colonoscopy and EGD, was seeing hematology, was on iv iron infusion, seeing Dr Isaacs- s/p angioplasty, no more symptoms, dr matute cancer s/p resection in 1998, gets colonoscopy regularly , last one in 2019, Dr Ayonatal hernia repair in the past Vitamin D def- Takes Vitamin D 50,000u once every ThursdayHyperglycemia - advised to watch diet, A1c 5.6Kidney disease- GFR was 16 in the hospital, went up to 56 with hydration, seeing nephrology, now 19 per herMeds- on Farxiga 5mg dailyAbn stress test, now seeing Dr Akhtar ( no consult reports )Liver lesion- MRI of 04/14 revealed possible cyst but was non contrast MRI, CT scan was doen in 2022 showed diffuse liver disease but no cyst Perico Cardona MD [address] [facility], [address], [place], [address], [place] [employer] 11/05/2023 11:57:07 03/09/2024 text/html Patient here tod ay for 4month f/u apptpt is fasting ([employer]) HTN- on meds and BP is running between 80-90, has been documented by his other specialistsMeds-- Lisinopril 20mg dailyHyperlipidemia- on meds, and diet, labs dueMeds- Lovastatin 40mg dailyDepression and anxiety- sees psych, Dr Capps , under control, sleeps fine with meds from psych,Meds- Bupropion XL 300mg daily, Vilazodone 40mg dailyEx-smoker- quit in 2007 after smoking 2ppd for 35 yrsGERD- on meds and betterMeds- Esomeprazole 40mg daily Diaz's esophagus- gets EGD, last one in 04/14 (hiatal hernia, esophagitis, GERD )Insomnia- Takes meds as neededMeds- Zolpidem 5mg HS PRNAnemia- had nl colonoscopy and EGD, was seeing hematology, was on iv iron infusion, seeing Dr Isaacs- s/p angioplasty, no more symptoms, dr matute cancer s/p resection in 1998, gets colonoscopy regularly , last one in 2019, Dr Ayonatal hernia repair in the past Vitamin D def- Takes Vitamin D 50,000u once every ThursdayHyperglycemia - advised to watch diet, A1c 5.6Kidney disease- GFR was 16 in the hospital, went up to 56 with hydration, seeing nephrology, DR CONROY, now 31 per her, needs labsMeds- WAS on Farxiga 5mg dailyAbn stress test, seen Dr Akhtar, had another stress test and was nl in 2022Liver lesion- MRI of 04/14 revealed possible cyst but was non contrast MRI, CT scan was done in 2022 showed diffuse liver disease but no cyst Perico Cardona MD [address] [facility], [address], [place], [address], [place] [facility] [employer] 03/09/2024 17:15:04 07/14/2024 text/html Patient here tod ay for 4 month f/u apptPT IS FASTING (AETNA) HTN- bp was low and Lisinopril was stoppedHyperlipidemia - on meds, and diet, labs good in 04/16Meds- Lovastatin 40mg dailyDepression and anxiety- sees psych, Dr Capps , under control, sleeps fine with meds from psych,Meds- Bupropion XL 300mg daily, Vilazodone 40mg daily, Quetiapine 100mg daily, Hydroxyzine 25mg as neededEx-smoker- quit in 2007 after smoking 2ppd for 35 yrsGERD- on meds and betterMeds- Esomeprazole 40mg daily Diaz's esophagus- gets EGD, last one in 04/14 (hiatal hernia, esophagitis, GERD )Insomnia- Takes meds as neededMeds- Zolpidem 5mg HS PRNAnemia- had nl colonoscopy and EGD, was seeing hematology, was on iv iron infusion, seeing Dr Isaacs- s/p angioplasty, no more symptoms, dr matute cancer s/p resection in 1998, gets colonoscopy regularly , last one in 2019, Dr Ayonatal hernia repair in the past Vitamin D def- Takes Vitamin D 50,000u once every ThursdayHyperglycemia - advised to watch diet, A1c 5.6Kidney disease- GFR was 16 in the hospital, went up to 56 with hydration, seeing nephrology, DR CONROY, now 28 per her,Meds- WAS on Farxiga 5mg dailyAbn stress test, seen Dr Akhtar, had another stress test and was nl in 2022Liver lesion- MRI of 04/14 revealed possible cyst but was non contrast MRI, CT scan was done in 2022 showed diffuse liver disease but no cyst Perico Cardona MD [address] [facility], [facility] [address], [place], [address], [place] [facility] 07/14/2024 09:24:08 OBGyn Episode No OBEpisode recorded.
--- OUTSIDE RECORDS SUMMARY | 2024-07-28 11:49 | XMS_ITS | Clinical Summary ---
Author Organization [facility] Address [address] [place] [address] Care Team Providers Care Terrazzo Worker Helper Name Role Phone Perico Cardona MD Primary Care Provider [phone] Allergies Active Allergy Reactions Criticality Noted Date Comments Ferumoxytol Other (See Comments) 03/13/2016 Severe abdominal pain/chest pain/nausea/vomiting transported to ER Iron Nausea and Vomiting High 05/07/2021 Unclassified Drug Other (See Comments) 02/11/20 16 ALLERGIC TO ANESTHESIA DRUG UNKOWN NAME, UNABLE TO WAKE UP AFTER SURGERY Medications lovastatin (MEVACOR) 40 mg tablet Take 40 mg by mouth daily . 6 Active lisinopril (PRINIVIL) 10 mg tablet Take 20 mg by mouth daily. 6 Active esomeprazole (NexIUM) 40 mg Capsule, Delayed Release(E.C.) Take 49 mg by mouth daily . 6 Active buPROPion (WELLBUTRIN) 100 mg tablet Take 100 mg by mouth 2 times daily. Active vilazodone (VIIBRYD) 40 mg Tablet TAKE 1 TABLET BY MOUTH ONCE DAILY FOR 90 DAYS 3 Active dapagliflozin (Farxiga) 5 mg Tablet Farxiga 5 mg tablet 3 Active calcitRIOL (ROCALTROL) 0.25 mcg capsule Take 0.25 mcg by mouth daily. 3 Active ergocalciferol, vitamin D2, (ERGOCALCIFEROL, VIT D2,, BULK, MISC) Active zolpidem (AMBIEN) 5 mg tablet 3 Active acyclovir (ZOVIRAX) 400 mg tablet 3 Active acyclovir (ZOVIRAX) 5 % Ointment acyclovir 5 % topical ointment APPLY OINTMENT TO AFFECTED AREA TO AFFECTED AREA EVERY 3 HOURS NO MORE THAN 6 TIMES PER DAY Active sodium bicarbonate 650 mg tablet Take 650 mg by mouth 2 times daily. Active ferrous sulfate 325 mg (65 mg iron) tablet Take 325 mg by mouth daily. Active Active Problems Problem Noted Date Diagnosed Date Iron deficiency anemia 02/11/2016 Encounters Date Type Department Care Team Description 07/18/2024 Orders Only [facility] - [place] [address] [place] [id number] Robbi Petit MD Chronic anemia 07/04/2024 Orders Only [facility] - [place] [address] [place] [id number] Robbi Petit MD Chronic anemia 06/20/2024 Orders Only [facility] - [place] [address] [place] [address] Robbi Petit MD Chronic anemia 06/08/2024 External Device Data [facility] ABSTRACTION Provider, Abstract 06/06/2024 Orders Only [facility] - [place] [address] [place] [address] Robbi Petit MD Chronic anemia 05/28/2024 External Device Data [facility] ABSTRACTION Provider, Abstract 05/27/2024 External Device Data [facility] [place]STRACTION Provider, Abstract 05/25/2024 External Device Data [place]STRACTION Provider, Abstract 05/24/2024 External Device Data [facility]CTION Provider, Abstract 05/23/2024 Orders Only [facility] - [place] [address] [place] [address] Robbi Petit MD Chronic anemia 05/10/2024 External Device Data [facility] ABSTRACTION Provider, Abstract 05/09/2024 Orders Only [facility] - [place] [address] [place] [id number] Robbi Petit MD Chronic anemia from Last 3 Months Family History Medical History Relation Name Comments Cancer Father Relation Name Status Comments Brother 1 Brother 2 Father Mother Sister 1 Alive Sister 2 Alive Sister 3 Social History Tobacco Use Types Packs/Day Years Used Date Smoking Tobacco: Former Cigarettes 1 35 1 04/12/1972 - 02/11/2008 Smokeless Tobacco: Never Tobacco Cessation:Counseling Given: Not Answered Alcohol Use Standard Drinks/Week Comments No 0 (1 standard drink = 0.6 oz pur e alcohol) Comments No Sex and Gender Information Value Date Recorded Sex Assigned at Not on file Legal Sex Female 2:21 PM 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 Gender Identity Not on file Sexual Orientation Not on file Last Filed Vital Signs Vital Sign Reading Time Taken Comments Blood Pressure 92/53 10/06/2023 9:33 AM CDT Pulse 78 10/06/2023 9:33 AM CDT Temperature 36.6 C (97.8 F) 10/06/2023 9:33 AM CDT Respiratory Rate 16 10/06/2023 9:33 AM CDT Oxygen Saturation 94% 10/06/2023 9:33 AM CDT Inhaled Oxygen Concentration - - Weight 87.1 kg (192 lb) 10/06/2023 9:33 AM CDT Height 165.1 cm (5' 5 ) 11/07/2022 9:03 AM CDT Body Mass Index 31.95 11/07/2022 9:03 AM CDT Plan of Treatment Health Maintenance Due Date Last Done Comments DIABETES ANNUAL FOOT EXAM 08/05/1973 DIABETES ANNUAL RETINAL EXAM 08/05/1973 DIABETES MICROALBUMIN ANNUAL SCREEN 08/05/1973 LDL CHOLESTEROL ANNUAL 08/05/1973 DTAP/TDAP/TD VACCINES (1 - Tdap) 08/05/1974 PNEUMOCOCCAL VACCINE 50+ YEA RS (1 of 2 - PCV) 08/05/1974 BREAST CANCER SCREENING 1995 ZOSTER VACCINE (1 of 2) 08/05/2005 RSV VACCINE (60+ or ) (1 - Risk 60-74 years 1-dose series) 2015 DIABETES HBA1C Q 6 MONTHS 03/25/2017 09/22/2016 OSTEOPOROSIS SCREENING 08/05/2020 INFLUENZA VACCINE (#1) 2023 0, 12/15/2018, 12/11/2017, Additional history exists Procedures Procedure Name Priority Date/Time Associated Diagnosis Comments HEMOGLOBIN A1C Routine 09/22/2016 from Last 3 Months or Most Recently Relevant to Health Maintenance Results * HEMOGLOBIN A1C (09/22/2016) Blood Robbi Petit MD CHEMISTRY ORDERABLES Edited Res ult - Final [facility] from Last 3 Months or Most Recently Relevant to Health Maintenance Insurance [facility] PPO MCR Care Teams Terrazzo Worker Helper Relationship Specialty Start Date End Date Perico Cardona MD [address] [facility] [address] [place] [address] PCP - General Internal Medicine 05/07/21
--- OUTSIDE RECORDS SUMMARY | 2024-07-28 11:49 | XMS_ITS ---
Author Organization [facility] Address [address] [place] [address] Care Team Providers Care Water Aerobics Instructor Name Role Phone Royer Quintana Unavailable [phone] MEDICATIONS Medication SIG (Take, Route, Fr equency, Duration) Notes Start Date End Date Status Farxiga 10 MG 1 tablet Orally Once a day for 90 02/15/2024 Active SOCIAL HISTORY Sex Assigned At : Social History Observation Description Sex Assigned At Female Encounters Encounter Location Date Provider Diagnosis [place] [facility] [address] [place] [address] 05/21/2023 Royer Quintana PLAN OF TREATMENT Medication Medication Name Sig Start Date Stop Date Notes Farxiga 10 MG 1 tablet Orally Once a day for 90 05/21/2023 02/15/2024 Progress Notes * Nichole OLIVARESDOB: [birth year] (67 yo F)Acc No.[id number]:05/21/2023 Patient: Nichole OLIVARES :1955 Age:67 Y Sex:Female Address:[address] [place] [address] * Refills Start Farxiga Tablet, 10 MG, Orally, 90 Tablet, 1 tablet, Once a day, 90, Refills=2 * true * Date:
--- OUTSIDE RECORDS SUMMARY | 2024-07-28 11:50 | XMS_ITS | Patient Health Record ---
Author Organization [facility] Address [address] [facility] [address] [facility] [address] [place] [address] REASON FOR REFERRAL No Information MEDICATIONS Medication SIG (Take, Route, Frequency, Duration) Notes Start Date End Date Status Sodium Bicarbonate 650 MG Take 1 tablet by mouth twice daily for 90 Active Calcitriol 0.25 MCG Take 1 capsule by mo [facility] once daily for 90 Active Veltassa 8.4 GM 1 packet dissolved i n water. Take other medications at least 3 hours before or 3 hours after this medication Orally Once a day for 90 day(s) 05/30/2022 Active Farxiga 5 MG Take 1 tablet by qiana once daily for 90 Active SOCIAL HISTORY Sex Assigned At : Social History Observation Description Sex Assigned At Female PROBLEMS Problem Type ICD Code Onset Dates Problem Status W/U Status Risk SNOMED Code Notes Problem Anemia, unspecified (D64.9) Active confirmed Anemia (272118527) Problem Hyperlipidemia, unspecified (E78.5) Active confirmed Hyperlipidemia (92187026) Problem Hypo-osmolality and hyponatremia (E87.1) Active confirmed Hypo-osmolality and or hyponatremia (462076504) Problem Anxiety disorder, unspecified (F41.9) Active confirmed Anxiety disorde r (394578250) Problem Chronic kidney disease, stage 3 unspecified (N18.30) Active confirmed Chronic kidney disease stage 3 (disorder) (368861746) PLAN OF TREATMENT Pending Test Test Name Order Date Ultrasound : Retroperitoneal 07/29/2021
--- OUTSIDE RECORDS SUMMARY | 2024-07-28 11:50 | XMS_ITS | Patient Health Record ---
Author Organization [facility] [employer] Address [address] [place] [address] Care Team Providers Care Retail And Restaurant Associate Name Role Phone Perico Cardona MD Primary Care Provider Unavail able Bassam Capps Unavailable [phone] Aylin Sanchez Unavailable [phone] Migration, Provider Unavailable Unavailable Allergies No Known Allergies Reason For Referral No Information Medications Medication SIG (Take, Route, Frequency, Duration) Notes Start Date End Date Status Veltassa 8.4 GM DISSOLVE 1 PACKET IN WATER AND DRINK ONCE DAILY. TAKE ALL OTHER MEDICATIONS AT LEAST 3 HOURS BEOFRE OR 3 HOURS AFTER THIS MEDICATION Oral for 24 Days Not-Taking hydrOXYzine HCl 10 MG 1 tablet Oral Once a day for 90 days 06/29/2024 Active Zolpidem Tartrate 5 MG 1 tablet every ni ght Oral Once a day for 30 days 02/15/2024 Active buPROPion HCl ER (XL) 300 MG 1 tablet every morning Oral Once a day for 90 days Active Sodium Bicarbonate 650 MG TAKE 1 TABLET BY MOUTH TWICE DAILY Oral for 90 Days Active Vilazodone HCl 40 MG 1 tablet with food Oral Once a day for 90 days Active Esomeprazole Magnesium 40 MG TAKE 1 CAPSULE BY MOUTH ONCE DAILY Oral for 90 Days Active Vitamin D (Ergocalciferol) 1.25 MG (13154 UT) TAKE 1 CAPSULE BY MOUTH ONCE A WEEK ON THURSDAY Oral for 84 Days Active QUEtiapine Fumarate 100 MG 1 tablet at bedtime Orally Once a day for 90 days Active Lovastatin 40 MG TAKE 1 TABLET BY TH ONCE DAILY IN THE EVENING Oral for 90 Days Active Calcitriol 0.25 MCG TAKE 1 CAPSULE BY MO UTH ONCE DAILY Oral for 90 Days Active Lisinopril 20 MG TAKE 1 TABLET BY SON ONCE DAILY Oral for 90 Days Active Immunizations Vaccine Route Administration Date Status Comme nts Influenza (split), preservat soha free, 6-35 months Unknown 12/21/2016 Administered Influenza virus vaccine, quadrivalent (IIV4), split virus, 0.25 mL dosage Unknown 12/11/2017 Administered Influenza virus vaccine, quadrivalent (IIV4), split virus, 0.25 mL dosage Unknown 01/05/2019 Administered Influenza, seasonal, injecta ble, preservative free, 3 yrs and above Unknown 11/17/2013 Administered Moderna Covid-19 Vaccine 1st dose Unknown 11/20/2020 Ad ministered Novel [id number], preservative free Unknown 11/20/2016 Administered Novel [id number], preservative free Unknown 12/15/2018 Administered Novel [id number], preservative free Unknown 01/09/2020 Administered Pneumococcal polysaccharide PPV23 Unknown 03/02/2018 Ad ministered Social History Tobacco Use: Social History Observation Description Date Details (start date - stop date) Former Smoker NA - NA Sex Assigned At : Social History Observation Description Sex Assigned At Female Tobacco Control (Standard) Question Answer Notes Tobacco use: Former smoker Problems Problem Type SNOMED Code ICD Code Onset Dates Problem Status W/U Status Risk Notes Problem Malignant neoplasm of colon (396819682) Malignant neoplasm of colon, unspecified (C18.9) 1 Active confirmed Problem Anemia (268283072) Anemia, unspecified (D64.9) 2 Active confirmed Problem Hyperlipidemia (53304454) Hyperlipidemia, unspecified (E78.5) 1 Active confirmed Problem Severe recurrent major depression without psychotic features (00711600) Major depressive disorder, recurrent severe without psychotic features (F33.2) 4 Active confirmed Problem Generalized anxiety disorder (51036598) Generalized anxiety disorder (F41.1) 4 Active confirmed Problem Primary insomnia (7771481) Primary insomnia (F51.01) 4 Active confirmed Problem Gastro-esophageal reflux disease without esophagitis (763531884) Gastro-esophage al reflux disease without esophagitis (K21.9) 4 Active confirmed Problem Iron deficiency anemia (96512045) Iron deficiency anemia (D50.9) 6 Active confirmed Vital Signs Heart Rate 80 /min 06/22/2024 Height-cm 167.64 cm 06/22/2024 Blood pressure diastolic 70 mm Hg 06/22/2024 Weight-kg 86.18 kg 06/22/2024 Height 66.00 in 06/22/2024 Blood pressure systolic 120 mm Hg 06/22/2024 Weight 190 lbs 06/22/2024 BMI 30.66 kg/m2 06/22/2024 Encounters Encounter Location Date Provider Diagnosis [address] [address] 10/23/2023 Bassam Jefry Generalized anxiety disorder F41.1 ; Gastro-esophageal reflux disease without esophagitis K21.9 ; Primary insomnia F51.01 and Major depressive disorder, recurrent severe without psychotic features F33.[address] [address] 01/08/2024 Bassam Jefry Generalized anxiety disorder F41.1 ; Major depressive disorder, recurrent severe without psychotic features F33.2 ; Gastro-esophageal reflux disease without esophagitis K21.9 and Primary insomnia F51.[address] [address] 06/22/2024 Bassam Jefry Generalized anxiety disorder F41.1 ; Malignant neoplasm of colon, unspecified C18.9 ; Hyperlipidemia, unspecified E78.5 ; Iron deficiency anemia D50.9 ; Major depressive disorder, recurrent severe without psychotic features F33.2 ; Gastro-esophageal reflux disease without esophagitis K21.9 ; Primary insomnia F51.01 ; Encounter for screening for depression Z13.31 and Encounter for screening for cardiovascular disorders Z13.[address] [address] 08/03/2023 Provider Migration [address] [address] 08/05/2023 Provider Migration [address] [address] 2023 Provider Migration [address] [address] 08/08/2023 [facility], [facility] [address] [place] [address] 08/09/2023 [facility], [facility] [address] [place] [address] 08/10/2023 [facility], [facility] [address] [place] [address] 10/01/20[facility] [address] [place] [address] 06/22/2024 [facility] Generalized anxiety disorder F41.1 [facility], [facility] [address] [place] [address] 08/31/2023 [facility], [facility] [address] [place] [address] 09/07/2023 [facility], [facility] [address] [place] [address] 09/11/2023 [facility], [facility] [address] [place] [address] 09/14/2023 [facility], [facility] [address] [place] [address] 09/14/2023 [facility], [facility] [address] [place] [address] 10/01/2023 [facility], [facility] [address] [place] [address] 12/21/2023 [facility], [facility] [address] [place] [address] [facility] [facility] disorder F41.1 Assessments Encounter Date Diagnosis (ICD Code) Assessment Notes Treatment Notes Treatment Clinical Notes Section Notes 10/23/2023 Generalized anxiety disorder (ICD-10 - F41.1) Depression and Mood Instability - Assessment: Patient reports worsening mood since discontinuing Vraylar due to insurance coverage issues. No suicidal ideation or self-harm thoughts are present. Patient describes increased crying and impatience. - Plan: - Start aripiprazole at a lower dose, to be taken in the evening initially. - Reevaluate in one week and adjust timing as needed. - Schedule a follow-up appointment in two months to assess medication effectiveness. Anemia and Stage 4 Chronic Kidney Disease - Assessment: Patient is receiving Procrit injections every three weeks to boost blood count (currently at 9.2) and improve kidney function (currently at 19). Dialysis has been mentioned as a possibility but not currently implemented. - Plan: - Continue current management under the care of Dr. Petit and Dramatic Reader Dr. Conroy. Hypertension - Assessment: Patient's blood pressure was 90/50 during the visit. - Plan: - Continue Lisinopril as prescribed and monitor blood pressure regularly. Gastrointestinal Upset - Plan: - Continue Esomeprazole as prescribed. Hyperlipidemia - Plan: - Continue Lovastatin 40 mg daily. Vitamin D Deficiency - Plan: - Continue Vitamin D2 supplementation once a week. Insomnia and Anxiety - Assessment: Patient reports taking Zolpidem almost every night or every other night lately. - Plan: - Continue Zolpidem and Hydroxyzine as needed. Iron and Vitamin C Supplementation - Plan: - Continue current regimen. Discontinuation of Veltasa - Assessment: Patient reports potassium levels have stabilized. - Plan: - No further action needed at this time. Follow-up Appointments - Plan: - Continue to see Dr. Aragon for primary care, Dr. Petti for blood work, and Dr. Conroy for nephrology care. Current Medications - Plan: - Continue Velazodone 40 mg daily and Bupropion XL 300 mg daily for depression. - Patient is also taking Calcitriol and Sodium Bicarbonate 650 mg twice daily. 01/08/2024 Major depressive disorder, recurrent severe without psychotic features (ICD-10 - F33.2) depression - Plan: - Discontinue aripiprazole due to tremors. - Start quetiapine 50 mg at bedtime for one week, then increase to 100 mg if tolerated. - Taper off aripiprazole by taking 1 mg for one week or every other day for a week, then stop. - Continue vilazodone 40 mg and bupropion XL 300 mg. Anxiety - Plan: - Continue hydroxyzine as needed for anxiety. Anemia and Kidney Function - Plan: - Await results of blood tests and follow up as needed. Medication Coverage and Follow-up - Plan: - Confirm quetiapine coverage with [facility] pharmacy. - Schedule a follow-up appointment in 3 months. - Patient may call to extend the prescription if doing well on quetiapine. Hypertension - Plan: - No intervention needed at this time. Recent Loss - Plan: - Continue current treatment as patient reports coping well with recent loss. 01/08/2024 Generalized anxiety disorder (ICD-10 - F41.1) depression - Plan: - Discontinue aripiprazole due to tremors. - Start quetiapine 50 mg at bedtime for one week, then increase to 100 mg if tolerated. - Taper off aripiprazole by taking 1 mg for one week or every other day for a week, then stop. - Continue vilazodone 40 mg and bupropion XL 300 mg. Anxiety - Plan: - Continue hydroxyzine as needed for anxiety. Anemia and Kidney Function - Plan: - Await results of blood tests and follow up as needed. Medication Coverage and Follow-up - Plan: - Confirm quetiapine coverage with [facility] pharmacy. - Schedule a follow-up appointment in 3 months. - Patient may call to extend the prescription if doing well on quetiapine. Hypertension - Plan: - No intervention needed at this time. Recent Loss - Plan: - Continue current treatment as patient reports coping well with recent loss. 06/22/2024 Malignant neoplasm of colon, unspecified (ICD-10 - C18.9) 06/22/2024 Hyperlipidemia, unspecified (ICD-10 - E78.5) 06/22/2024 Generalized anxiety disorder (ICD-10 - F41.1) 06/22/2024 Iron deficiency anemia (ICD-10 - D50.9) 06/22/2024 Generalized anxiety disorder (ICD-10 - F41.1) 06/24/2024 Generalized anxiety disorder (ICD-10 - F41.1) Electronic Prior Authorization was requested for hydrOXYzine HCl 10 MG Tablet. Provider can order medication once approval received. 06/22/2024 Major depressive disorder, recurrent severe without psychotic features (ICD-10 - F33.2) 10/23/2023 Gastro-esophagea l reflux disease without esophagitis (ICD-10 - K21.9) Depression and Mood Instability - Assessment: Patient reports worsening mood since discontinuing Vraylar due to insurance coverage issues. No suicidal ideation or self-harm thoughts are present. Patient describes increased crying and impatience. - Plan: - Start aripiprazole at a lower dose, to be taken in the evening initially. - Reevaluate in one week and adjust timing as needed. - Schedule a follow-up appointment in two months to assess medication effectiveness. Anemia and Stage 4 Chronic Kidney Disease - Assessment: Patient is receiving Procrit injections every three weeks to boost blood count (currently at 9.2) and improve kidney function (currently at 19). Dialysis has been mentioned as a possibility but not currently implemented. - Plan: - Continue current management under the care of Dr. Petit and Dramatic Reader Dr. Conroy. Hypertension - Assessment: Patient's blood pressure was 90/50 during the visit. - Plan: - Continue Lisinopril as prescribed and monitor blood pressure regularly. Gastrointestinal Upset - Plan: - Continue Esomeprazole as prescribed. Hyperlipidemia - Plan: - Continue Lovastatin 40 mg daily. Vitamin D Deficiency - Plan: - Continue Vitamin D2 supplementation once a week. Insomnia and Anxiety - Assessment: Patient reports taking Zolpidem almost every night or every other night lately. - Plan: - Continue Zolpidem and Hydroxyzine as needed. Iron and Vitamin C Supplementation - Plan: - Continue current regimen. Discontinuation of Veltasa - Assessment: Patient reports potassium levels have stabilized. - Plan: - No further action needed at this time. Follow-up Appointments - Plan: - Continue to see Dr. Aragon for primary care, Dr. Petit for blood work, and Dr. Conroy for nephrology care. Current Medications - Plan: - Continue Velazodone 40 mg daily and Bupropion XL 300 mg daily for depression. - Patient is also taking Calcitriol and Sodium Bicarbonate 650 mg twice daily. 01/08/2024 Gastro-esophagea l reflux disease without esophagitis (ICD-10 - K21.9) depression - Plan: - Discontinue aripiprazole due to tremors. - Start quetiapine 50 mg at bedtime for one week, then increase to 100 mg if tolerated. - Taper off aripiprazole by taking 1 mg for one week or every other day for a week, then stop. - Continue vilazodone 40 mg and bupropion XL 300 mg. Anxiety - Plan: - Continue hydroxyzine as needed for anxiety. Anemia and Kidney Function - Plan: - Await results of blood tests and follow up as needed. Medication Coverage and Follow-up - Plan: - Confirm quetiapine coverage with [facility] pharmacy. - Schedule a follow-up appointment in 3 months. - Patient may call to extend the prescription if doing well on quetiapine. Hypertension - Plan: - No intervention needed at this time. Recent Loss - Plan: - Continue current treatment as patient reports coping well with recent loss. 01/08/2024 Primary insomnia (ICD-10 - F51.01) depression - Plan: - Discontinue aripiprazole due to tremors. - Start quetiapine 50 mg at bedtime for one week, then increase to 100 mg if tolerated. - Taper off aripiprazole by taking 1 mg for one week or every other day for a week, then stop. - Continue vilazodone 40 mg and bupropion XL 300 mg. Anxiety - Plan: - Continue hydroxyzine as needed for anxiety. Anemia and Kidney Function - Plan: - Await results of blood tests and follow up as needed. Medication Coverage and Follow-up - Plan: - Confirm quetiapine coverage with [facility] pharmacy. - Schedule a follow-up appointment in 3 months. - Patient may call to extend the prescription if doing well on quetiapine. Hypertension - Plan: - No intervention needed at this time. Recent Loss - Plan: - Continue current treatment as patient reports coping well with recent loss. 10/23/2023 Primary insomnia (ICD-10 - F51.01) Depression and Mood Instability - Assessment: Patient reports worsening mood since discontinuing Vraylar due to insurance coverage issues. No suicidal ideation or self-harm thoughts are present. Patient describes increased crying and impatience. - Plan: - Start aripiprazole at a lower dose, to be taken in the evening initially. - Reevaluate in one week and adjust timing as needed. - Schedule a follow-up appointment in two months to assess medication effectiveness. Anemia and Stage 4 Chronic Kidney Disease - Assessment: Patient is receiving Procrit injections every three weeks to boost blood count (currently at 9.2) and improve kidney function (currently at 19). Dialysis has been mentioned as a possibility but not currently implemented. - Plan: - Continue current management under the care of Dr. Petit and Dramatic Reader Dr. Conroy. Hypertension - Assessment: Patient's blood pressure was 90/50 during the visit. - Plan: - Continue Lisinopril as prescribed and monitor blood pressure regularly. Gastrointestinal Upset - Plan: - Continue Esomeprazole as prescribed. Hyperlipidemia - Plan: - Continue Lovastatin 40 mg daily. Vitamin D Deficiency - Plan: - Continue Vitamin D2 supplementation once a week. Insomnia and Anxiety - Assessment: Patient reports taking Zolpidem almost every night or every other night lately. - Plan: - Continue Zolpidem and Hydroxyzine as needed. Iron and Vitamin C Supplementation - Plan: - Continue current regimen. Discontinuation of Veltasa - Assessment: Patient reports potassium levels have stabilized. - Plan: - No further action needed at this time. Follow-up Appointments - Plan: - Continue to see Dr. Aragon for primary care, Dr. Petit for blood work, and Dr. Conroy for nephrology care. Current Medications - Plan: - Continue Velazodone 40 mg daily and Bupropion XL 300 mg daily for depression. - Patient is also taking Calcitriol and Sodium Bicarbonate 650 mg twice daily. 06/22/2024 Gastro-esophagea l reflux disease without esophagitis (ICD-10 - K21.9) 06/22/2024 Primary insomnia (ICD-10 - F51.01) 10/23/2023 Major depressive disorder, recurrent severe without psychotic features (ICD-10 - F33.2) Depression and Mood Instability - Assessment: Patient reports worsening mood since discontinuing Vraylar due to insurance coverage issues. No suicidal ideation or self-harm thoughts are present. Patient describes increased crying and impatience. - Plan: - Start aripiprazole at a lower dose, to be taken in the evening initially. - Reevaluate in one week and adjust timing as needed. - Schedule a follow-up appointment in two months to assess medication effectiveness. Anemia and Stage 4 Chronic Kidney Disease - Assessment: Patient is receiving Procrit injections every three weeks to boost blood count (currently at 9.2) and improve kidney function (currently at 19). Dialysis has been mentioned as a possibility but not currently implemented. - Plan: - Continue current management under the care of Dr. Petit and Dramatic Reader Dr. Conroy. Hypertension - Assessment: Patient's blood pressure was 90/50 during the visit. - Plan: - Continue Lisinopril as prescribed and monitor blood pressure regularly. Gastrointestinal Upset - Plan: - Continue Esomeprazole as prescribed. Hyperlipidemia - Plan: - Continue Lovastatin 40 mg daily. Vitamin D Deficiency - Plan: - Continue Vitamin D2 supplementation once a week. Insomnia and Anxiety - Assessment: Patient reports taking Zolpidem almost every night or every other night lately. - Plan: - Continue Zolpidem and Hydroxyzine as needed. Iron and Vitamin C Supplementation - Plan: - Continue current regimen. Discontinuation of Veltasa - Assessment: Patient reports potassium levels have stabilized. - Plan: - No further action needed at this time. Follow-up Appointments - Plan: - Continue to see Dr. Aragon for primary care, Dr. Petit for blood work, and Dr. Conroy for nephrology care. Current Medications - Plan: - Continue Velazodone 40 mg daily and Bupropion XL 300 mg daily for depression. - Patient is also taking Calcitriol and Sodium Bicarbonate 650 mg twice daily. 06/22/2024 Encounter for screening for depression (ICD-10 - Z13.31) 06/22/2024 Encounter for screening for cardiovascular disorders (ICD-10 - Z13.6) 10/23/2023 Other referral to the local chapter or national office of the Alzheimer's Association ( ; http://www.alz. org), the Alzheimer's Disease Education and Referral Center (ADEAR) ( ; http://www.blu. nih.gov/Alzheim ers/), Depression and Mood Instability - Assessment: Patient reports worsening mood since discontinuing Vraylar due to insurance coverage issues. No suicidal ideation or self-harm thoughts are present. Patient describes increased crying and impatience. - Plan: - Start aripiprazole at a lower dose, to be taken in the evening initially. - Reevaluate in one week and adjust timing as needed. - Schedule a follow-up appointment in two months to assess medication effectiveness. Anemia and Stage 4 Chronic Kidney Disease - Assessment: Patient is receiving Procrit injections every three weeks to boost blood count (currently at 9.2) and improve kidney function (currently at 19). Dialysis has been mentioned as a possibility but not currently implemented. - Plan: - Continue current management under the care of Dr. Petit and Dramatic Reader Dr. Conroy. Hypertension - Assessment: Patient's blood pressure was 90/50 during the visit. - Plan: - Continue Lisinopril as prescribed and monitor blood pressure regularly. Gastrointestinal Upset - Plan: - Continue Esomeprazole as prescribed. Hyperlipidemia - Plan: - Continue Lovastatin 40 mg daily. Vitamin D Deficiency - Plan: - Continue Vitamin D2 supplementation once a week. Insomnia and Anxiety - Assessment: Patient reports taking Zolpidem almost every night or every other night lately. - Plan: - Continue Zolpidem and Hydroxyzine as needed. Iron and Vitamin C Supplementation - Plan: - Continue current regimen. Discontinuation of Veltasa - Assessment: Patient reports potassium levels have stabilized. - Plan: - No further action needed at this time. Follow-up Appointments - Plan: - Continue to see Dr. Aragon for primary care, Dr. Petit for blood work, and Dr. Conroy for nephrology care. Current Medications - Plan: - Continue Velazodone 40 mg daily and Bupropion XL 300 mg daily for depression. - Patient is also taking Calcitriol and Sodium Bicarbonate 650 mg twice daily. 06/22/2024 Thad Ortega, a retired female patient with a history of depression and anxiety, presents with grief and depressive symptoms following the recent loss of three of her five dogs. Grief and Depression Assessment: Patient is experiencing significant grief and depressive symptoms following the loss of three of her five dogs within the past month. She reports not wanting to do anything, social isolation, decreased appetite, and sleep disturbances. The patient is currently managing with her prescribed medications, including vilazodone, bupropion, and quetiapine. She has recently started using hydroxyzine as needed for anxiety symptoms, particularly before work. Despite the grief, the patient is maintaining part-time employment at [employer], which provides some structure and occupation. Plan: - Continue vilazodone 40 mg daily - Continue bupropion 300 mg daily - Continue quetiapine 50 mg at bedtime (half of prescribed 100 mg tablet) - Prescribe hydroxyzine 10 mg daily as needed for anxiety - Follow up in 3 months - Patient instructed to reach out if symptoms worsen before next appointment - Consider increasing quetiapine to 100 mg at bedtime if depression worsens - Monitor for need to adjust medication regimen if grief progresses to severe depression Insomnia Assessment: Patient reports sleep disturbances, likely related to her current grief and depression. She has a prescription for zolpidem but rarely uses it. Plan: - Continue zolpidem as previously prescribed for use as needed - No refill needed at this time due to infrequent use Iron Deficiency Anemia Assessment: Patient has a history of iron deficiency anemia. Current status is unclear as recent lab results were not discussed. Plan: - Follow up with primary care physician for management and monitoring of iron deficiency anemia Hyperlipidemia (suspected) Assessment: Patient mentions an upcoming cholesterol test scheduled with Dr. Cardona at the end of the month, suggesting a history of or concern for hyperlipidemia. Plan: - Patient to follow up with Dr. Cardona for scheduled cholesterol test Gastroesophagea l Reflux Disease (GERD) Assessment: Patient reports that her GERD is currently stable. Plan: - Continue current GERD management Disclaimer: This note has been transcribed using speech recognition software and serves as a reflection of the patient's visit. While efforts have been made to ensure accuracy, there may be errors, including data entry analyst inaccuracies and misspellings of medication names. This document should not be considered a verbatim record, and any discrepancies should be verified with the provider. Plan Of Treatment Next Appt Details Provider Name:Bassam Capps , 09/21/2024 08:30:00 AM, [address], [facility] [address], [place], [address], Insurance Providers Payer Name Payer Address Payer Phone Subscriber Number Group Number Insured Name Patient Relationship to Insured Coverage Start Date Coverage End Date [employer] Re[employer] t/Advantag e - Ppo [address] [place] [phone] [id number] JOLIE LOPES Self - patient is the insured Medical (General) History Medical History History ICD Code Problems: Anemia Gastroesophageal reflux disease Generalized anxiety disorder Mild neurocognitive disorder Primary insomnia Severe recurrent major depression withou t psychotic features , Surgical History Surgery Date(Month/Year) Removal of gallbladder (07596)
[2024-07-28 12:06] LABS: Hematocrit 32.7 % (37.0-47.0); Hemoglobin 10.9 g/dL (12.0-15.0); Mean Corpuscular HGB Conc 33.3 g/dl (32-36); Mean Corpuscular Hemoglobin 35.4 pg (26-34); Mean Corpuscular Volume 106.2 fl (80-100); Mean Platelet Volume 12.6 fl (7.4-10.4); Platelet Count Result 320 k/mm3 (150-375); Red Blood Count 3.08 M/mm3 (4.2-5.4); Red Cell Distribution Width 16.8 % (11.5-14.5); White Blood Count 5.9 K/mm3 (4.5-10.0)
[2024-07-28 12:25] LABS: Albumin Level 4.7 g/dL (3.5-5.1); Anion Gap 10 mmol/L (4-12); Blood Urea Nitrogen 22 mg/dL (7-17); Carbon Dioxide 23 mmol/L (22-30); Chloride 107 mmol/L (98-107); Estimated Glomerular Filt Rate 34; Glucose 94 mg/dL (65-110); Phosphorus 3.6 mg/dL (2.5-4.5); Sodium 140 mmol/L (137-145)
[2024-07-28 12:41] LABS: Total Protein Urine Random 7 mg/dL; Ur Ttl Prot Creatinine Ratio 0.06 mg/mg (0-0.20)
[2024-07-28 12:42] LABS: Parathyroid Intact 46.2 pg/mL (14.5-75.2)
== END 2024-07-28 11:44 | disposition home or self-care (01) ==
LOC: ANHLAB 11:47
PROVIDERS: PCP Internal Medicine; Visit Provider Internal Medicine Nephrology
DX: I12.9 Hypertensive chronic kidney disease with stage 1 through stage 4 chronic kidney disease, or unspecified chronic kidney disease (principal); N18.4 Chronic kidney disease, stage 4 (severe)
CPT/HCPCS: 36415; 80069; 82570; 83970; 84156; 85027

== ENCOUNTER 2024-12-22 00:15 | Day surgery (SDC) | payer MEDICARE, SELFPAY ==
--- OUTSIDE RECORDS SUMMARY | 2000-12-28 04:00 | XMS_ITS | Continuity of Care Document ---
Author Organization [facility] Address [address] [place] [address] Phone Care Team Providers Care Core Analyst Name Role Phone Braxton David DO Unavailable Unavailable Advance Directives Directive Yes / No Effective Date File Name No Information Encounters Encounter Description Practice Location Reason(s) For Visit Diagnoses Date Provider Providers Copied on Encounter [facility], [address], [place], [place], [id number], [place] tel:[phone] [facility] No Information Joann Velez. [address] [place], [address], [place]. tel: [phone] Family History Family Member Type Diagnosis Age At Onset No Information Payers Payer name Insurance type Covered libertarian ID Authoriza tion(s) No Information Social History [...]
--- NOTE | 2024-12-09 14:49 | PC.NURSE ---
Pt has hx of severe constipation. Given 2 day prep.
--- OUTSIDE RECORDS SUMMARY | 2024-12-22 00:19 | XMS_ITS | Data Portability ---
Author Organization [facility], Main Office Address [address] [place] [address] Assessment No assessment recorded. Plan of Treatment Reminders Order Date Submit Date Provider Last Modified By Organization Details Last Modified Time Details Appointments Any 15 2025 09:00A M Perico Cardona MD Not available Not available Not available Lab glycohemo globin, total, blood 2024 025 [facility] (Lab), [address] [place], [address], 11/16/2024 22:23:45 lipid panel, serum 2024 025 [facility] (Lab), [address] [place], [address], 11/16/2024 20:42:23 CBC w/ auto diff 2024 025 [facility] (Lab), [address] [place], [address], 11/16/2024 20:11:44 iron + total iron-bind ing capacity (TIBC), serum 2024 025 [facility] (Lab), [address] [place], [address], 11/16/2024 20:37:04 ferritin, serum or plasma 2024 025 [facility] (Lab), [address] [place], [address], 11/16/2024 22:26:47 glycohemo globin, total, blood 2023 024 [email or web address] [facility] (Lab), [address] [place], [address], 05/23/2024 17:15:13 CMP, serum or plasma 2023 024 [email or web address] [facility] (Lab), [address] [place], [address], 07/27/2024 10:58:24 lipid panel, serum 2023 024 [email or web address] 2 [facility] (Lab), [address] [place], [address], 05/23/2024 17:16:27 Referral None recorded. Procedures upper endoscopy procedure (EGD) (PROC) - Please call patient to schedule an appointme nt. Thank you. 2024 025 [facility], [address], [address], [place], [address], 11/17/2024 09:52:49 colonosco py procedure (PROC) - Please call patient to schedule an appointme nt. Thank you. 2024 025 [facility], [address], [address], [place], [address], 11/17/2024 09:52:52 Surgeries None recorded. Imaging None recorded. Medication Orders None recorded. Patient TargetsNo targets recorded. Patient Instructions Encounter Date Encounter Id Patient Instructions Last Modified By Organization Details Last Modified Time 03/09/2024 [id number] dementia rating scale-2* Not available 03/09/2024 17:14:41 depression screening* Not available 03/09/2024 17:14:41 alcohol misuse* Not available 03/09/2024 17:14:40 multi-dimensiona l health assessment questionnaire* Not available 03/09/2024 17:14:41 advance directiv es: care instructions Not available 03/09/2024 17:14:41 advance care planning: care instructions Not available 03/09/2024 17:14:41 [place] Advance Directives Not available 03/09/2024 17:14:41 Personalized [...] Non Smoker Alcohol Misuse Screening: Negative Weight: Overweight try to lose 10% of your body weight Physical activity: Need more exercise/physical activity minimum of 10-20 minutes of activity that causes mild breathlessness/day Nutrition: Good Fall Risk (screened today): Low Vaccines Pneumococcal: Recommended today, but you have declined Influenza: Recommended today, but you have declined Chronic Disease Risks Stroke: Intermediate Risk Active diagnosis, Continue current treatment plan Heart Attack: Intermediate Risk Active diagnosis, Continue current treatment plan Clogging of the Arteries: Intermediate Risk Active diagnosis, Continue current treatment plan Diabetes: Low Risk I have no recommendations Secondary Prevention/Interven tion (detects treatable diseases before they may cause symptoms, disability, or ) Breast Cancer Screening with mammogram: No screening necessary Cervical/Uterine/Ov sharmaine Cancer Screening: No screening necessary Osteoporosis Screening: Recommended today Date Screening Last Performed: Colon Cancer Screening: No screening necessary Date Screening Last Performed: Eye Disease Screening: Recommended today Dementia Risk: Low I have no recommendations Depression Screening: Negative I have no recommendations. [email or web address] Not available 03/09/2024 11:17:11 Reason for Referral None Reported. Results Created Date Observation Date Name Description Value Unit Range Abnormal Flag Note LastModifiedBy Organization Detail LastModifiedTime 11/17/1911/16/2024 CBC/C OMPLE TE BLD COUNT W/DIF F white blood cells 5.3 x10'3 /uL 4.2-10 .8 Not Available [facility] (Lab) [address] [place], [address], 11/16/2024 23:00:12 11/17/19 25 11/16/2024 CBC/C OMPLE TE BLD COUNT W/DIF F red blood cells 2.86 x10'6 /uL 4.10-5 .80 low Not Available [facility] (Lab) [address] [place], [address], 11/16/2024 23:00:12 11/17/19 25 11/16/2024 CBC/C OMPLE TE BLD COUNT W/DIF F hemoglobin 10.3 g/dL 13.2-1 7.0 low Not Available [facility] (Lab) [address] [place], [address], 11/16/2024 23:00:12 11/17/1911/16/2024 CBC/C OMPLE TE BLD COUNT W/DIF F hematocrit 31.2 % 39.3-5 0.0 low Not Available [facility] (Lab) [address] [place], [address], 11/16/2024 23:00:12 11/17/1911/16/2024 CBC/C OMPLE TE BLD COUNT W/DIF F mean red cell volume 109.1 fL 80.0-9 7.0 high Not Available [facility] (Lab) [address] [place], [address], 11/16/2024 23:00:12 11/17/1911/16/2024 CBC/C OMPLE TE BLD COUNT W/DIF F mean red cell hemoglobin 36.0 pg 27.0-3 3.0 high Not Available [facility] (Lab) [address] [place], [address], 11/16/2024 23:00:12 11/17/19 25 11/16/2024 CBC/C OMPLE TE BLD COUNT W/DIF F mean RBC HGB concentratio n 33.0 g/dL 31.0-3 6.0 Not Available [facility] (Lab) [address] [place], [address], 11/16/2024 23:00:12 11/17/19 25 11/16/2024 CBC/C OMPLE TE BLD COUNT W/DIF F red cell distribution width 18.9 % 11.8-1 5.5 high Not Available [facility] (Lab) [address] [place], [address], 11/16/2024 23:00:12 11/17/19 25 11/16/2024 CBC/C OMPLE TE BLD COUNT W/DIF F platelets 291 x10'3 /uL 150-40 0 Not Available [facility] (Lab) [address] [place], [address], 11/16/2024 23:00:12 11/17/19 25 11/16/2024 CBC/C OMPLE TE BLD COUNT W/DIF F mean platelet volume 13.2 fL 9.0-12 .4 high Not Available [facility] (Lab) [address] [place], [address], 11/16/2024 23:00:12 11/17/19 25 11/16/2024 CBC/C OMPLE TE BLD COUNT W/DIF F neutrophils 79 % 39.0-7 2.0 high Not Available [facility] (Lab) [address] [place], [address], 11/16/2024 23:00:12 11/17/19 25 11/16/2024 CBC/C OMPLE TE BLD COUNT W/DIF F bands 2 % 0-3 Not Available [facility] (Lab) [address] [place], [address], 11/16/2024 23:00:12 11/17/19 25 11/16/2024 CBC/C OMPLE TE BLD COUNT W/DIF F lymphocytes 8 % 16.0-4 7.0 low Not Available [facility] (Lab) [address] [place], [address], 11/16/2024 23:00:12 11/17/1911/16/2024 CBC/C OMPLE TE BLD COUNT W/DIF F monocytes 6 % 5.0-12 .0 Not Available [facility] (Lab) [address] [place], [address], 11/16/2024 23:00:12 11/17/1911/16/2024 CBC/C OMPLE TE BLD COUNT W/DIF F eosinophils 4 % 1.0-7. 0 Not Available [facility] (Lab) [address] [place], [address], 11/16/2024 23:00:12 11/17/19 25 11/16/2024 CBC/C OMPLE TE BLD COUNT W/DIF F basophils 1 % 0.0-2. 0 Not Available [facility] (Lab) [address] [place], [address], 11/16/2024 23:00:12 11/17/1911/16/2024 CBC/C OMPLE TE BLD COUNT W/DIF F neutrophils, absolute count 4.10 x10'3 /uL 1.5-8. 0 Not Available [facility] (Lab) [address] [place], [address], 11/16/2024 23:00:12 11/17/1911/16/2024 CBC/C OMPLE TE BLD COUNT W/DIF F anisocytosis 1+ Not Available [facility] (Lab) [address] [place], [address], 11/16/2024 23:00:12 11/17/19 25 11/16/2024 CBC/C OMPLE TE BLD COUNT W/DIF F poikilocytos is 1+ Not Available [facility] (Lab) [address] [place], [address], 11/16/2024 23:00:12 11/17/19 25 11/16/2024 CBC/C OMPLE TE BLD COUNT W/DIF F macro 2+ Not Available [facility] (Lab) [address] [place], [address], 11/16/2024 23:00:12 11/17/19 25 11/16/2024 CBC/C OMPLE TE BLD COUNT W/DIF F polychromato philic RBCs OCCASI ONAL Not Available [facility] (Lab) [address] [place], [address], 11/16/2024 23:00:12 11/17/19 25 11/16/2024 CBC/C OMPLE TE BLD COUNT W/DIF F target cells OCCASI ONAL Not Available [facility] (Lab) [address] [place], [address], 11/16/2024 23:00:12 11/17/19 25 11/16/2024 CBC/C OMPLE TE BLD COUNT W/DIF F ovalocytes OCCASI ONAL Not Available [facility] (Lab) [address] [place], [address], 11/16/2024 23:00:12 11/17/19 25 11/16/2024 CBC/C OMPLE TE BLD COUNT W/DIF F teardrop red blood cells OCCASI ONAL Not Available [facility] (Lab) [address] [place], [address], 11/16/2024 23:00:12 11/17/19 25 11/16/2024 CBC/C OMPLE TE BLD COUNT W/DIF F large platelets 1+ Not Available [facility] (Lab) [address] [place], [address], 11/16/2024 23:00:12 11/17/19 25 11/16/2024 CBC/C OMPLE TE BLD COUNT W/DIF F giant platelets OCCASI ONAL Not Available [facility] (Lab) [address] [place], [address], 11/16/2024 23:00:12 11/17/19 25 11/16/2024 IRON/ TIBC PANEL total iron binding capacity 297 mcg/d L 265-47 5 Not Available [facility] (Lab) [address] [place], [address], 11/16/2024 20:53:51 11/17/19 25 11/16/2024 IRON/ TIBC PANEL % transferrin saturation 52 % 20-55 Not Available [facility] (Lab) [address] [place], [address], 11/16/2024 20:53:51 11/17/19 25 11/16/2024 IRON/ TIBC PANEL unsaturated iron bind capacity 144 mcg/d L 126-38 2 Not Available [facility] (Lab) [address] [place], [address], 11/16/2024 20:53:51 11/17/19 25 11/16/2024 IRON/ TIBC PANEL iron 153 mcg/d L 42-175 Not Available [facility] (Lab) [address] [place], [address], 11/16/2024 20:53:51 11/17/19 25 11/16/2024 LIPID PANEL cholesterol 133 mg/dL 140-[address] NSUS RECOM MENDA TION FOR RICKY STERO L: ADULT CHILD LOW RISK: <200 <170 BORDE RLINE : <200- 239 ----- HIGH RISK: >240 >200 Not Available [facility] (Lab) [address] [place], [address], 11/16/2024 20:42:23 11/17/19 25 11/16/2024 LIPID PANEL triglyceride s 59 mg/dL 0-[address] NSUS REPOR T RECOM MENDA TION FOR TRIGL YCERI JAH: ADULT CHILD LOW RISK: <150 ----- BODER LINE: 150-1 99 ----- HIGH RISK: >200 ----- Not Available [facility] (Lab) [address] [place], [address], 11/16/2024 20:42:23 11/17/1911/16/2024 LIPID PANEL HDL cholesterol 64 mg/dL 40- Not Available [facility] (Lab) [address] [place], [address], 11/16/2024 20:42:23 11/17/1911/16/2024 LIPID PANEL LDL cholesterol, calculated 57 mg/dL 0-[address] NSUS REPOR T RECOM MENDA TIONS FOR LDL: ADULT CHILD LOW RISK <130 <110 (OPTI MAL LDL) <100 ----- SUZANNEDE RLINE : 130-1 59 ----- HIGH RISK: >160 >130 A TRIGL YCERI DE RESUL T >400 INVAL IDATE S THE CALCU LATIO N FOR LDL FRACT IONAT ION - THE LDL RESUL T WILL NOT BE REPOR NILE. Not Available [facility] (Lab) [address] [place], [address], 11/16/2024 20:42:23 11/17/19 25 11/16/2024 HEMOG LOBIN A1C HA1C 5.2 % 4.0-6. 0 Diabe manuela Scree chelly Crite negin: <5.7% Consi stent with absen ce of diabe manuela 5.7-6 .4% Consi stent with incre ased risk for diabe manuela (pred iabet es) >OR=6 .5% Consi stent with diabe manuela REFER ENCE: Diabe manuela Care 2016, 39(Dobson ppl.1 ):s13 -s22 Not Available [facility] (Lab) [address] [place], [address], 11/16/2024 22:23:45 08/11/16/2024 SOL TIN ferritin 152 NG/mL 11.1-2 64 Not Available [facility] (Lab) [address] [place], [address], 11/16/2024 22:26:47 Result Notes None recorded. Problems Name Problem SNOMED Code Status Onset Date Resolution Date Notes Provider Name and Address Organization Details Recorded Time Closed fracture of phalanx of foot 18108812 Completed Not Available [facility] 3 13:13:18 Gastroesop hageal reflux disease 172388557 Active 2020 Not Available [facility] 4 13:42:33 Diaz's esophagus 302328666 Active 2020 Not Available [facility] 4 13:42:33 Depressive disorder 01436908 Active 2020 Not Available [facility] 4 13:42:33 Malignant neoplasm of colon 038731456 Active 2020 Not Available [facility] 4 13:42:33 Peripheral vascular disease 180326040 Active 2020 Not Available [facility] 4 13:42:33 Anxiety 74397619 Active 2020 Not Available [facility] 4 13:42:33 Hyperlipid emia 62740197 Active 2020 Not Available [facility] 4 13:42:33 Essential hypertensi on 44551264 Active 2020 Not Available [facility] 4 13:42:33 Hyperglyce kiko 75705967 Active 2020 Not Available [facility] 4 13:42:33 Ex-smoker 4260277 Active 2020 Not Available [facility] 4 13:42:33 Iron deficiency anemia 38014418 Active 2020 Not Available [facility] 4 13:42:33 Osteopenia 776702827 Active 2020 Not Available [facility] 4 13:42:33 Carotid artery stenosis 68434870 Active 2020 Not Available [facility] 4 13:42:33 Acute herpes simplex pharyngiti s 831365605 Completed 202103/19/2022 Not Available [facility] 3 13:13:17 Backache 960438961 Active 2021 Not Available [facility] 4 13:42:33 Chest pain 86743445 Active 2021 Not Available [facility] 4 13:42:33 Lesion of liver 765482398 Active 2021 Not Available [facility] 4 13:42:33 Kidney disease 45866114 Active 2021 Not Available [facility] 4 13:42:33 Herpes labialis 8504329 Active 2021 Not Available [facility] 4 13:42:33 Cardiovasc ular stress test abnormal 763481752 Active 2021 Not Available [facility] 4 13:42:33 Liver function tests outside reference range 077745735 Active 2021 Not Available [facility] 4 13:42:33 Insomnia 313487109 Active 2022 Humera bo RMA null, [place] [facility] 4 08:52:23 Nausea 702169490 Completed 202203/09/2024 Humera bo RMA null, [place] [facility] 4 08:52:26 Hiatal hernia 56998774 Active 2022 Not Available [facility] 4 13:42:33 Thoracic back pain 770728339 Active 2022 Not Available [facility] 4 13:42:33 Chronic fibrosis of lung 96837740 Active 2022 Humera bo RMA null, [place] [facility] 4 08:52:16 Splenomega ly 68470263 Active 2022 Humera bo RMA null, [place] [facility] 4 08:52:35 Pulmonary emphysema 08995640 Active 2022 FADY Raygoza null, [facility] 4 08:52:30 Chronic kidney disease 123729306 Active 2023 Humera Cortés [email or web address] null, [facility] 4 08:52:20 Problem Notes None recorded. Procedures Surgical History Date Name Laterality Status Provider Name and Address Organization Details Recorded Time 4 Medicare Wellness CPT Code, subsequent completed Zohreh Flores RN [facility] 03/09/2024 10:50:03 4 Advanced Care Planning completed Zohreh Flores RN [facility] 03/09/2024 11:14:10 Imaging Results None recorded. Procedure Notes None recorded. Medical Equipment None Reported. Allergies Allergen ID Allergen Name Allergen Category Reaction Reaction Severity Criticality Documentation Date Start Date Code Code System Note Provider Name and Address Organization Details Recorded Time 95838 iron medicatio n vomiting Not available Not available 05/21/2022 58975 RxNorm aller gic to I/V BUT not to oral [id number] Not Available [facility] 3 13:15:27 Medications Name Sig Start Date Stop Date Status Note LastModified by Organization Details LastModified Time quetiapin e 25 mg tablet TAKE 1 TABLET BY MOUTH ONCE DAILY AT BEDTIME 2024 active Not Available Not Available Not Avai lable cyclobenz aprine 10 mg tablet TAKE 1 [...] mouth once daily 03/09 completed ROSA 11/05/23 03/09/24 ok to rf Not Available Not Available Not Available ondansetr on HCl 4 mg tablet Take 1 tablet 3 times a day by oral route as needed. active Not Available Not Available No t Available famotidin e 40 mg tablet TAKE 1 TABLET BY MOUTH EVERY DAY AT BEDTIME 11/16 completed Not Available Not Available Not Available lovastati n 40 mg tablet TAKE 1 TABLET BY MOUTH ONCE DAILY IN THE EVENING 2024 active ROSA 11/16/24 03/27/25 ok to rf Not Available Not Available Not Available venlafaxi ne ER 150 mg capsule,e [...] day by oral route in the morning. 11/16 completed Not Available Not Available Not Available clopidogr el 75 mg tablet TAKE [...] tramadol . Valid: 04/25/22-8 05/15. PA# SOI [id number] 5/3/23 #30 severe pain only Not Available Not Available Not Available quetiapin e 100 mg tablet Take 1 tablet every day by oral route. 11/[address] Capps Not Available Not Available Not [...] a day by oral route. active Dr. Capps- As needed Not Available Not Available Not Available zolpidem 5 mg tablet TAKE 1 TABLET BY MOUTH NIGHTLY active Not Available Not Available No t Available ergocalci ferol (vitamin D2) 1,250 mcg (50,000 unit) capsule TAKE 1 CAPSULE BY MOUTH ONCE A WEEK ON THURSDAY S active Not Available Not Available No t Available methylpre dnisolone 4 mg tablets in a dose pack TAKE BY MOUTH DIRECTED ON INSIDE OF PACKAGE 08/09 completed Not Available Not Available Not Available hydroxyzi ne HCl 10 mg tablet TAKE 1 TABLET BY MOUTH ONCE DAILY 09/07 completed Not Available Not Available Not Available fluoxetin e 20 mg capsule TAKE [...] TAKE 1 TABLET BY MOUTH ONCE DAILY 11/16 completed Not Available Not Available Not Available FeroSul 325 mg (65 mg iron) tablet TAKE 1 TABLET BY MOUTH ONCE DAILY 11/12 completed Not Available Not Available Not Available vilazodon e 40 mg tablet TAKE 1 TABLET BY MOUTH ONCE DAILY WITH FOOD active Not Available Not Available No t [...] Available Vitals Date Recorded Body height Body mass index (BMI) Body weight Heart rate Oxygen saturation Oxygen saturation in Arterial blood by Pulse oximetry Systolic And Diastolic Provider Name and Address Organization Details Last Updated DateTime 4 166.37 cm 32 kg/m2 29865.5 1 g 92 /min 97 % 97 % 108/68 mm[Hg] Laura Choi Jossie [facility] [employer] [facility] 4 14:37:47 Date Recorded Body height Body mass index (BMI) Body weight Body temperature Heart rate Oxygen saturation Oxygen saturation in Arterial blood by Pulse oximetry Systolic And Diastolic Provider Name and Address Organization Details Last Updated DateTime 5 166.37 cm 31.8 kg/m2 42506.9 2 g 97 [degF] 72 /min 94 % 94 % 120/70 mm[Hg] Humera sigala Jossie [facility] [employer] [facility] 5 09:02:17 Date Recorded Body height Body temperature Heart rate Oxygen saturation Oxygen saturation in Arterial blood by Pulse oximetry Body mass index (BMI) Body weight Systolic And Diastolic Provider Name and Address Organization Details Last Updated DateTime 4 166.37 cm 98.2 [degF] 80 /min 98 % 98 % 32.8 kg/m2 78795.4 7 g 112/72 mm[Hg] Una Travis [facility] [place] 4 11:22:42 Date Recorded Body height Body mass index (BMI) Body weight Body temperature Heart rate Oxygen saturation Oxygen saturation in Arterial blood by Pulse oximetry Systolic And Diastolic Provider Name and Address Organization Details Last Updated DateTime 5 166.37 cm 31.5 kg/m2 60544.7 4 g 98 [degF] 78 /min 95 % 95 % 130/74 mm[Hg] Humera sigala Jossie [facility] [employer] [facility] 5 09:24:37 Date Recorded Body mass index (BMI) Body height Pain severity - 0-10 verbal numeric rating [Score] - Reported Provider Name and Address Organization Details Last Updated DateTime 03/09/2024 31.6 kg/m2 166.37 cm 2 Zohreh Flores RN [facility] [employer] [facility] 03/09/2024 10:50:26 Date Recorded Body weight Body temperature Heart rate Oxygen saturation Oxygen saturation in Arterial blood by Pulse oximetry Systolic And Diastolic Provider Name and Address Organization Details Last Updated DateTime 4 97246.3 3 g 98 [degF] 76 /min 97 % 97 % 90/68 mm[Hg] Brit Serina kumar [facility] 4 10:03:39 Social History Question Answer Notes LastModified by Organization Details LastModified Time Tobacco Smoking Status Former Smoker Quit in 2007 Beba Davis [email or web address] [facility] 02/18/2023 14:21:49 Do You Have An Advance Directive? No [id number] Information not available 05/21/2022 Are You Blind Or Do You Have Difficulty Seeing? No Information not available 02/18/2023 What Is Your Level Of Caffeine Consumption? None [id number] Information not available 05/21/2022 How Much Tobacco Do You Chew? None [id number] Information not available 05/21/2022 In The 14 [...] No Information not available 02/18/2023 Are You Deaf Or Do You Have Serious Difficulty Hearing? No Information not available 02/18/2023 What Type Of Diet Are You Following? REGULAR [id number] Information not available 05/21/2022 Which Illicit Or Recreational Drugs Have You Used? Marijuana Information not available 02/18/2023 What Is The Highest Grade Or Level Of School You Have Completed Or The Highest Degree You Have Received? [id number] [email or web address] Information not available 03/09/2024 How Many Days Of Moderate To Strenuous Exercise, Like A Brisk Walk, Did You Do In The Last 7 Days? 5 [email or web address] Information not available 03/09/2024 On Those Days That You Engage In Moderate To Strenuous Exercise, How Many Minutes, On Average, Do You Exercise? 10 [email or web address] Information not available 03/09/2024 Have There Been Any Changes To Your Family Or Social Situation? No Information not available 02/18/2023 What Is The Fluoride Status Of Your Home? Unknown Information not available 02/18/2023 When Did You Quit Smoking? 16+yearssincelastc igarette [email or web address] Information not available 03/09/2024 Are There Any Guns Present In Your Home? No Information not available 02/18/2023 How Many Years Have You Used Illicit Or Recreational Drugs? 35 Start Age 18, Break Between 27-42 Yo [email or web address] Information not available 03/09/2024 Do You Use Insect Repellent Routinely? No [email or web address] Information not available 03/09/2024 Where Do You Live? SingleLevelHouse Information not available 02/18/2023 Do You Have A Medical Power Of English Tutor? No Information not available 02/18/2023 What Was The Date Of Your Most Recent Tobacco Screening? 11/16/2024 [email or web address] Information not available 11/16/2024 How Many Children Do You Have? 0 [email or web address] Information not available 03/09/2024 What Is Your Current Pack Years? 30ormorepackyears [email or web address] Information not available 03/09/2024 Do You Have Any Pets? Yes Information not available 02/18/2023 What Is Your Relationship Status? Single [email or web address] Information not available 03/09/2024 Do You Use Your Seat Belt Or Car Seat Routinely? Yes [email or web address] Information not available 03/09/2024 Are You Sexually Active? No [email or web address] Information not available 03/09/2024 Do You Have [...] Tobacco Do You Smoke? 1 PPD [id number] Information not available 05/21/2022 What Types Of Sporting Activities Do You Participate In? None [email or web address] Information not available 03/09/2024 Do You Use Sunscreen Routinely? No [email or web address] Information not available 03/09/2024 Has Tobacco Cessation Counseling Been Provided? No [email or web address] Information not available 03/09/2024 How Many Years Have You Smoked Tobacco? 32 [email or web address] Information not available 03/09/2024 Have You Recently Traveled Abroad? No Information not available 02/18/2023 Have You Used IV Drugs? No [email or web address] Information not available 03/09/2024 Do You Have Difficulty Walking Or Climbing Stairs? No Information not available 02/18/2023 Do You Have Any Dietary Restrictions? No Information not available 02/18/2023 Sex: Female Functional Status Question Answer Note LastModified by Organizat ion Details LastModified Time Do you use any illicit or recreational drugs? Yes Information not available 02/18/2023 Do you or have you ever used any other forms of tobacco or nicotine? No [email or web address] Information not available 03/09/2024 What is your level of alcohol consumption? None [id number] Information not available 05/21/2022 Are you currently employed? Yes [email or web address] Information not available 03/09/2024 Do you have transportation difficulties? No Information not available 02/18/2023 Are you able to walk independently without assistance or assistive devices? [email or web address] Information not available 02/18/2023 Do you have difficulty doing errands alone? No Information not available 02/18/2023 Are you able to care for yourself independently? 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 No Information not available 02/18/2023 What is your exercise level? Occasional [id number] Information not available 05/21/2022 Mental Status Question Answer Note LastModified by Organizat ion Details LastModified Time Do you feel stressed (tense, restless, nervous, or anxious, or unable to sleep at night)? [id number] [email or web address] Information not available 03/09/2024 Do you have difficulty concentrating, remembering or making decisions? No Information no t available 02/18/2023 Family History Relationship Description Onset Age of this Age Resolved Age Notes LastModified by Organization Details LastModified Time Mother Essential hypertension Not available 09:11:06 Mother Diabetes mellitus [id number] Not available 05/21/2022 13:12:36 Mother Depressive disorder [email or web address].[id number] Not available 05/21/2022 13:12:36 Sister Essential hypertension -X2 [email or web address] Not available 09:11:06 Sister Family history of malignant neoplasm [email or web address] Not available 11/16 09:11:06 Sister Diabetes mellitus [email or web address] [id number] Not available 05/21/2022 13:12:36 Sister Depressive disorder X2 [id number] Not available 05/21/2022 13:12:36 Father Family history of malignant neoplasm [email or web address] Not available 11/16 09:11:06 Brother Depressive disorder 39 suicid e [email or web address].135 [id number] Not available 05/21/2022 13:12:36 Medical History No medical history recorded. Gynecological HistoryNo gynecological history recorded. Obstetrics History GPAL:G 0 P 0 0 0 0 Immunizations Vaccine Type Date Status Note Provider Nam e and Address Organization Details Recorded Time Influenza, split virus, trivalent, preservative 4 completed Not Available [facility] 11/16/2024 09:11:52 Influenza, split virus, quadrivalent, PF 7 completed Not Available [facility] 11/16/2024 09:11:52 influenza, split (incl. purified surface antigen) 7 completed Not Available [facility] 11/16/2024 09:11:52 Influenza, recombinant, quadrivalent, PF 8 completed Not Available [facility] 11/16/2024 09:11:52 pneumococcal polysaccharide PPV23 8 completed Not Available [facility] 11/16/2024 09:11:52 Influenza, split virus, quadrivalent, PF 9 completed Not Available [facility] 11/16/2024 09:11:52 Influenza, split virus, quadrivalent, PF 0 completed Not Available [facility] 11/16/2024 09:11:52 COVID-19, mRNA, LNP-S, PF, 100 mcg/0.5mL dose or 50 mcg/0.25mL dose 1 completed Not Available [facility] 11/16/2024 09:11:52 zoster recombinant 5 completed Not Available [facility] 11/16/2024 09:11:52 Past Encounters Encounter ID Performer Location Encounter Start Date Encounter Closed Date Diagnosis/Indication Diagnosis SNOMED-CT Code Diagnosis ICD10 Code Diagnosis IMO Codes Diagnosis Note [id number] Perico Cardona MD [facility] Internal Med [address] [place] [address]. [place] [address] 07/12/2020 00:00:00 07/12/2020 14:36:12 [id number] Perico Cardona MD [facility] Internal Med [address] [place] [address] 08/09/2020 00:00:00 08/09/2020 17:10:34 [id number] Perico Cardona MD [facility] Internal Med [address] [place] [address] 08/27/2020 00:00:00 08/27/2020 15:03:09 [id number] MD SIMEON Cheney_G Internal Med [address] [place] [address] 11/12/2020 00:00:00 11/13/2020 13:14:18 [id number] Perico Cardona MD [facility] Internal Med [address] [address] 11/20/2020 00:00:00 11/20/2020 13:07:44 [id number] MD SIMEON Cheney_[facility] Internal Med [address] [address] 03/25/2021 00:00:00 03/25/2021 10:55:31 [id number] MD SIMEON Cheney_[facility] Internal Med [address] [address] 07/02/2021 00:00:00 07/02/2021 17:08:37 [id number] Perico Cardona MD [facility] Internal Med [address] [place] [address] 2021 00:00:00 2021 16:37:29 [id number] Perico Cardona MD S_[facility] Internal Med [address] [place] [address] 03/26/2022 00:00:00 03/26/2022 13:08:37 [id number] Perico Cardona MD [facility] Internal Med [address] [place] [address] 04/23/2022 00:00:00 04/23/2022 13:03:15 [id number] Perico Cardona MD [facility] Internal Med [address] [facility] [place] [address] 05/15/2022 00:00:00 05/15/2022 11:25:24 [id number] Perico Cardona MD [facility] Internal Med [address] [facility] [place] [address] 07/24/2022 09:48:39 07/24/2022 10:20:12 Essential hypertension 65993755 I10 better Peripheral vascular disease 109106849 I73.9 s/p stent, no symptoms Hyperlipidemia 93762493 E78.5 labs good Gastroesop hageal reflux disease 640353820 K21.9 meds help Diaz's esophagus 3029 57322 K22.70 get EGD Malignant neoplasm of colon 717672484 C18.9 no recurrence Iron defic iency anemia 18453620 D50.[address] Renal insufficiency 7231 20479 N28.9 improving Depressive disorder 3548 9007 F32.9 under control Anxiety 85290850 F41.9 under control Hyperglycemia 60108683 R 73.9 better Lesion of liver 12271603 0 K76.9 MRI liver needed for f/u Cardiovasc ular stress test abnormal 892509609 R94.39 seeing cardiology , recent stress test came back nl 06/12 Insomnia 685928879 G47.0 0 on zolpidem Adult [facility] examination 657105702 Z00.00 Colonoscop y- 2019- Dr. White (not in chart)- NLMammogra m- NEVER- DOES NOT WANTDexa- 08/02/2020 Pneumovax- Had at a previous - 2014?FLU11/2019COVI D- Moderna- has gotten two shots [id number] Perico Cardona MD [facility] Internal Med [address] [facility] [place] [address] 11/28/2022 09:54:33 11/28/2022 10:39:38 Essential hypertension 21872797 I10 under control Peripheral vascular disease 196381349 I73.9 s/p stent, no symptoms Hyperlipidemia 29812389 E78.5 labs good Gastroesop hageal reflux disease 970860467 K21.9 meds help Diaz's esophagus 3029 23530 K22.70 no symptoms Malignant neoplasm of colon 716043662 C18.9 no recurrence Iron defic iency anemia 84929804 D50.[address] Depressive disorder 3548 9007 F32.9 under control Anxiety 03428499 F41.9 under control Hyperglycemia 54982585 R 73.9 watching diet Lesion of liver 97535618 0 K76.9 Cardiovasc ular stress test abnormal 816843003 R94.39 seeing cardiology , recent stress test came back nl 06/12 Insomnia 348031614 G47.0 0 on zolpidem Adult [facility] examination 159382596 Z00.00 Colonoscop y- 2019- Dr. White (not in chart)- NLLDCT- 04/03/2022 Mammogram- NEVER- DOES NOT WANTDexa- 08/02/2020 Pneumovax- Had at a previous 2014?- 11/2019COVI D- Moderna- has gotten two shots [id number] Perico Cardona MD [facility] Internal Med [address] [facility] [place] [address] 02/18/2023 14:21:07 02/18/2023 15:38:44 Kidney disease 72822183 N08 getting worse, seeing nephrology Chronic fi brosis of lung 70691662 J84.10 mild, no symptoms, getting CT chest next time Splenomegaly 59996107 R1 [address] Petit Pulmonary emphysema 8743 3001 J43.9 no symptoms [id number] Perico Cardona MD [facility] Internal Med [address] [place] [address] 07/07/2023 14:29:37 07/07/2023 14:58:03 Essential hypertension 95931375 I10 under control Peripheral vascular disease 424547894 I73.9 s/p stent, no symptoms Hyperlipidemia 78238845 E78.5 under control Gastroesop hageal reflux disease 929625071 K21.9 meds help Diaz's esophagus 3029 24672 K22.70 no symptoms Malignant neoplasm of colon 282584090 C18.9 no recurrence Iron defic iency anemia 48633079 D50.[address] Depressive disorder 3548 9007 F32.9 under control Anxiety 48183356 F41.9 under control Hyperglycemia 11024100 R 73.9 watching diet, under control Cardiovasc ular stress test abnormal 723520880 R94.39 seen cardiology , recent stress test came back nl 06/12 Insomnia 558275274 G47.0 0 on zolpidem Adult heal th examination 041879420 Z00.00 Colonoscop y- 2019- Dr. White (not in chart)- NLLDCT- 04/03/2022 , does not qualify any moreMammog misty- NEVER- DOES NOT WANTDexa- 08/02/2020 Pneumovax- Had at a previous dr - 2014?FLU- 11/2019COVI D- Moderna- has gotten two shots Kidney disease 11764701 N08 getting worse, seeing nephrology History of malignant neoplasm of colon 673134296 Z85.038 colonoscop y in 2019 [id number] Perico Cardona MD [facility] Internal Med [address] [facility] [place] [address] 11/05/2023 11:07:24 11/05/2023 11:53:01 Essential hypertension 87730913 I10 under control Peripheral vascular disease 649787435 I73.9 s/p stent, no symptoms Hyperlipidemia 34481892 E78.5 under control Gastroesop hageal reflux disease 735214549 K21.9 meds help Diaz's esophagus 3029 80435 K22.70 no symptoms Malignant neoplasm of colon 148978208 C18.9 no recurrence Iron defic iency anemia 25884583 D50.[address] Depressive disorder 3548 9007 F32.9 under control with meds Anxiety 00921294 F41.9 under control Hyperglycemia 79846595 R 73.9 watching diet, under control, not losing weight Cardiovasc ular stress test abnormal 515913164 R94.39 seen cardiology , recent stress test came back nl 06/12 Insomnia 531032615 G47.0 0 on zolpidem, helps when takes Adult heal th examination 387909808 Z00.00 Colonoscop y- 2019- Dr. White (not in chart)- NLLDCT- 04/03/2022 , does not qualify any moreMammog misty- NEVER- DOES NOT WANTDexa- 08/02/2020 Pneumovax- Had at a previous dr - 2014?FLU- 11/2019COVI D- Moderna- has gotten two shots Kidney disease 93257260 N[address] Conroy History of malignant neoplasm of colon 679580377 Z85.038 colonoscop y in 2019, due next year [id number] Perico Cardona MD [facility] Internal Med [address] [place] [address] 03/09/2024 09:48:22 03/09/2024 10:47:41 Essential hypertension 42585307 I10 low, stop Lisinopril Peripheral vascular disease 767050442 I73.9 s/p stent, no symptoms Hyperlipidemia 16382129 E78.5 under control Gastroesop hageal reflux disease 235772607 K21.9 meds help Diaz's esophagus 3029 40798 K22.70 no symptoms Malignant neoplasm of colon 000275897 C18.9 no recurrence Iron defic iency anemia 78691371 D50.[address] Depressive disorder 3548 9007 F32.9 under control with meds Anxiety 42115400 F41.9 under control Hyperglycemia 09564236 R 73.9 watching diet, under control, not losing weight Insomnia 539833033 G47.0 0 on zolpidem, helps when takes Adult heal th examination 574954665 Z00.00 Colonoscop y- 2019- Dr. White (not in chart)- NLLDCT- 04/03/2022 , does not qualify any moreMammog misty- NEVER- DOES NOT WANTDexa- 08/02/2020 Pneumovax- Had at a previous - 2014?11/2019COVI D- Moderna- has gotten two shots Kidney disease 23024409 N[address] Conroy, low but stable GFR History of malignant neoplasm of colon 049938950 Z85.038 colonoscop y in 2019, due BUT WANTS TO WAIT Screening for disorder 616719212 Z13.9 [id number] Perico Cardona MD [facility] Internal Med [address] [facility] [place] [address] 07/14/2024 08:51:21 07/14/2024 10:20:59 Essential hypertension 13031156 I10 no meds needed Peripheral vascular disease 330175948 I73.9 s/p stent, no symptoms Hyperlipidemia 00548716 E78.5 under control Gastroesop hageal reflux disease 849230964 K21.9 meds help Diaz's esophagus 3029 19523 K22.70 no symptoms Malignant neoplasm of colon 100763263 C18.9 no recurrence Iron defic iency anemia 77734986 D50.9 stable Depressive disorder 3548 9007 F32.9 under control with meds Anxiety 90648554 F41.9 under control Hyperglycemia 97165985 R 73.9 watching diet, under control, not losing weight Insomnia 143430385 G47.0 0 on zolpidem, helps when takes Adult heal th examination 728405410 Z00.00 Colonoscop y- 2019- Dr. White (not in chart)- NLLDCT- 04/03/2022 , does not qualify any moreMammog misty- NEVER- DOES NOT WANTDexa- 08/02/2020 Pneumovax- Had at a previous 2014?11/2019COVI D- Moderna- has gotten two shots Kidney disease 27016333 N[address] Conroy, low but stable GFR History of malignant neoplasm of colon 874154660 Z85.038 colonoscop y in 2019, due BUT WANTS TO WAIT [id number] Perico Cardona MD [facility] Internal Med [address] [place] [address] 11/16/2024 09:09:58 11/16/2024 10:44:18 Essential hypertension 97360170 I10 no meds needed Peripheral vascular disease 345399132 I73.9 s/p stent, no symptoms Hyperlipidemia 03816198 E78.5 under control Gastroesop hageal reflux disease 235715661 K21.9 getting worse Diaz's esophagus 3029 65210 K22.70 no symptoms, no mention of Barretts on the last EGD in 04/14 Malignant neoplasm of colon 277606670 C18.9 no recurrence Iron defic iency anemia 44920200 D50.9 stable Depressive disorder 3548 9007 F32.9 under control with meds Anxiety 20298615 F41.9 under control Hyperglycemia 99916643 R 73.9 watching diet, under control, not losing weight Insomnia 699109184 G47.0 0 on zolpidem, helps when takes Adult heal th examination 476474111 Z00.00 Colonoscop y- 2019- Dr. White (not in chart)- NLLDCT- 04/03/2022 , does not qualify any moreMammog misty- NEVER- DOES NOT WANTDexa- 08/02/2020 Pneumovax- Had at a previous dr - 2014?FLU- 11/2019Zost er- 10/2024 - [facility] COVID- Moderna- has gotten two shots Kidney disease 52538332 N08 low but stable GFR History of malignant neoplasm of colon 768868575 Z85.038 colonoscop y in 2019, due Health Concerns Section Related Observation LastModified by Organization Detai ls LastModified Time None Recorded Concern Status LastModified by Organization Details LastModified Time None Recorded Advance Directives Directive N: Payers Insurance Date Sequence Insurance Name Policy Number Policy [place] Covered Member ID [place] Member ID Guarantor Name 11/13/2024 1 [employer] (MEDICARE REPLACEMENT/ ADVANTAGE - PPO) [id number] 1 Nichole Olivares [id number] Nichole Olivares 11/10/2024 1 [employer] - DOS ON OR AFTER 20 - [facility] BENEFITS PLAN (PPO) Nichole Billman [id number] Nichole Olivares Notes Date Note Type Note Provider Name and Address Organization Details Recorded Time 07/07/2023 text/html Patient here today for routine appt.HTN- on meds and under [...] is stable since 2020. Perico Cardona MD [address] [facility], [facility] [address], [place], [address], [facility] 07/07/2023 14:57:06 11/05/2023 text/html Patient here today for f/u appt. Pt compliant to meds. Pt reports feeling well. Pt stated got a Procrit inject. 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)HTN- on meds and under controlMeds-- Lisinopril 20mg [...] disease but no cyst Perico Cardona MD [address] [place] [address], [facility] [address], [place], [address], [place] [facility] [employer] 11/05/2023 11:57:07 03/09/2024 text/html Patient here today for 4month f/u apptpt is fasting ([employer]) HTN- on meds and BP is running between 80-90, has been documented by his other specialistsMeds-- Lisinopril 20mg dailyHyperlipidemia- on meds, and diet, labs dueMeds- Lovastatin 40mg dailyDepression and anxiety- sees psychDr Capps , under control, sleeps fine with [...] disease but no cyst Perico Cardona MD [address] [place] [address], [facility] [address], [place], [address], [place] [facility] [email or web address] 03/09/2024 17:15:04 07/14/2024 text/html Patient here today for 4 month f/u apptPT IS FASTING [...] but no cyst Perico Cardona MD [address] [facility], [address], [place], [address], [facility] [employer] 07/14/2024 09:24:08 11/16/2024 text/html Patient here today for 4 month f/u apptPT IS FASTING ([employer]ET[employer]) HTN- bp was low and Lisinopril was stoppedHyperlipidemia - on meds, and diet, labs good in 04/16Meds- Lovastatin 40mg dailyDepression and anxiety- sees psych, Dr Capps , under control, sleeps fine with meds from psych,Meds- Bupropion XL 300mg daily, Vilazodone 40mg daily, Quetiapine 125mg daily, Hydroxyzine 25mg as neededEx-smoker- quit in 2007 after smoking 2ppd for 35 yrsGERD- on meds and symptoms are getting worse in spite of medsMeds- Esomeprazole 40mg daily Diaz's esophagus- gets EGD, last one in 04/14 (hiatal hernia, esophagitis, GERD )Meds- Esomeprazole 40mg dailyInsomnia- Takes meds as neededMeds- Zolpidem 5mg HS [...] 56 with hydration, seeing nephrology, DR CONROY, was 28 now 32Meds- WAS on Farxiga 5mg dailyAbn stress test, seen Dr Akhtar, had another stress test and was nl in 2022Liver lesion- MRI of 04/14 revealed possible cyst but was non contrast MRI, CT scan was done in 2022 showed diffuse liver disease but no cyst Perico Cardona MD [address] [facility], [facility] [address], [place], [address], [place] [facility] 11/16/2024 09:40:41 OBGyn Episode No OBEpisode recorded.
--- OUTSIDE RECORDS SUMMARY | 2024-12-22 00:19 | XMS_ITS | Patient Health Record ---
Author Organization [facility] Address [address] [place] [address] Reason For Referral No Information Medications Medication SIG (Take, Route, Frequency, Duration) Notes Start Date End Date Status Sodium Bicarbonate 650 MG Take 1 tablet by mouth twice daily; Duration: 90 Active Calcitriol 0.25 MCG Take 1 capsule by mo [facility] once daily; Duration: 90 Active Veltassa 8.4 GM 1 packet dissolved i n water. Take other medications at least 3 hours before or 3 hours after this medication Orally Once a day; Duration: 90 day(s) 05/30/2022 Active Farxiga 5 MG Take 1 tablet by qiana once daily; Duration: 90 Active Social History Sex Assigned At : Social History Observation Description Sex Assigned At Female Problems Problem Type SNOMED Code ICD Code Onset Dates Problem Status W/U Status Risk Notes Problem Anemia (958460677) Anemia, unspecified (D64.9) Active confirmed Problem Hyperlipidemia (04684189) Hyperlipidemia, unspecified (E78.5) Active confirmed Problem Hypo-osmolality and or hyponatremia (760442694) Hypo-osmolality and hyponatremia (E87.1) Active confirmed Problem Anxiety disorder (310034584) Anxiety disorder, unspecified (F41.9) Active confirmed Problem Chronic kidney disease stage 3 (disorder) (035347455) Chronic kidney disease, stage 3 unspecified (N18.30) Active confirmed Plan Of Treatment Pending Test Test Name Order Date Ultrasound : Retroperitoneal 07/29/2021
--- OUTSIDE RECORDS SUMMARY | 2024-12-22 00:19 | XMS_ITS | Clinical Summary ---
Author Organization [facility] Address [address] [place] [address] Care Team Providers Care Satellite Dish Technician Name Role Phone Perico Cardona MD Primary Care Provider [phone] Allergies Active Allergy Reactions Criticality Noted Date [...] 650 mg by mouth 2 times daily. 3 Active ferrous sulfate 325 mg (65 mg iron) tablet Take 325 mg by mouth daily. Active Active Problems Problem Noted Date Diagnosed Date Iron deficiency anemia 02/11/2016 Encounters Date Type Department Care Team Description 11/07/2024 Orders Only [facility] Oncology and Hematology - [facility] [address] [place] [address] Robbi Petit MD Chronic anemia 10/24/2024 Orders Only [facility] Oncology and Hematology - [facility] [address] [place] [address] Robbi Petit MD Chronic anemia 10/10/2024 Orders Only [facility] Oncology and Hematology - [facility] [address] [place] [address] Robbi Petit MD Chronic anemia 10/05/2024 External Device Data STL ABSTRACTION Provider, Abstract 10/05/2024 External Device Data STL ABSTRACTION Provider, Abstract 10/04/2024 External Device Data STL ABSTRACTION Provider, Abstract 09/26/2024 Orders Only [facility] Oncology and Hematology - [place] [address] [place] [address] Robbi Petit MD Chronic anemia from Last [...] on file 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 Gender Identity Not on file Sexual Orientation [...] 9:33 AM CDT Height 165.1 cm (5' 5) 11/07/2022 9:03 AM CDT Body Mass Index [...] 09/22/2016 OSTEOPOROSIS SCREENING 08/05/2020 INFLUENZA VACCINE (#1) 2024 0, 12/15/2018, 12/11/2017, Additional history exists Procedures Procedure Name Priority Date/Time Associated Diagnosis Comments HEMOGLOBIN A1C Routine 09/22/2016 from Last 3 Months or Most Recently Relevant to Health Maintenance Results * HEMOGLOBIN A1C (09/22/2016) Blood us Robbi Petit MD CHEMISTRY ORDERABLES Edited Res ult - Final [facility] from Last 3 Months or Most Recently Relevant to Health Maintenance Insurance [employer] PPO MCR Care Teams Satellite Dish Technician Relationship Specialty Start Date End Date Perico Cardona MD [address] [address] PCP - General Internal Medicine 05/07/21
--- OUTSIDE RECORDS SUMMARY | 2024-12-22 00:19 | XMS_ITS | Clinical Summary ---
Author Organization [facility] Address [address] [place] [address] Care Team Providers Care Replenisher Name Role Phone Unavailable Primary Care Provider Unavailabl e Source Comments [facility],non-owned Affiliates and Associated Physician Practices is amultiple site organization consisting of ambulatory clinics and hospital sitesin [place], [place], [place] and [place]. This disclosure is being madepursuant to the Care Everywhere program and may not contain all information available regarding this patient. Last updated 17.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 Gender Identity Not on file Sexual Orientation [...] 08/05/2005 ZOSTER VACCINE (1 of 2) 08/05/2005 DEPRESSION SCREENING 03/23/2024 MEDICARE AWV CALENDAR YEAR 2024 COVID-19 VACCINE (1 - 2023- season) 2024 INFLUENZA VACCINE (#1) 2024 , 12/15/2018, 12/11/2017, Additional history exists Respiratory Syncytial [...] patient's age to complete this topic [facility] * Guarantor: JOLIE ORTEGA Account Type Relation to Patient Date of Phone Billing Address Personal/Family [address] [place] [address] [employer] MEDICARE ADV SELF PAY NO INSURANCE Member Subscriber Plan / Payer (Ef fective for All Dates) Name:Jolie Ortega Member ID:Not on file Relation to Subscriber:Not on file Name:JOLIE ORTEGA Subscriber ID:Not on file Address: [address] [place] [address] Payer ID:Not on file Group ID:Not on file Type:Self Pay Address: [place], [place] * Guarantor: JOLIE ORTEGA Account Type Relation to Patient Date of Phone Billing Address Personal/Family [address] [place] [address] [employer] MEDICARE ADV SELF PAY NO INSURANCE Member Subscriber Plan / Payer (Ef fective for All Dates) Name:Jolie Ortega Member ID:Not on file Relation to Subscriber:Not on file Name:JOLIE ORTEGA Subscriber ID:Not on file Address: [address] [place] [address] Payer ID:Not on file Group ID:Not on file Type:Self Pay Address: [place], [place] * Guarantor: JOLIE ORTEGA Account Type Relation to Patient Date of Phone Billing Address Personal/Family [address] [place] [address] [employer] MEDICARE ADV SELF PAY NO INSURANCE Member Subscriber Plan / Payer (Ef fective for All Dates) Name:Jolie Ortega Member ID:Not on file Relation to Subscriber:Not on file Name:JOLIE ORTEGA Subscriber ID:Not on file Address: [facility] [place] [address] [place] [address] Payer ID:Not on file Group ID:Not on file Type:Self Pay Address: [place], [place]
--- OUTSIDE RECORDS SUMMARY | 2024-12-22 00:20 | XMS_ITS | Patient Health Record ---
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 Name Role Phone Perico Cardona MD Primary Care Provider Unavail able Bassam Capps Unavailable [phone] Allergies No Known Allergies Reason For Referral No Information Medications Medication SIG (Take, Route, Frequency, Duration) Notes Start Date End Date Status hydrOXYzine HCl 10 MG Tablet 1 tablet Oral Once a day; Duration: 90 days 06/29/2024 Active Vilazodone HCl 40 MG Tablet TAKE 1 TABLET BY MOUTH ONCE DAILY WITH FOOD FOR 90 DAYS; Duration: 90 Active Esomeprazole Magnesium 40 MG Capsule Delayed Release TAKE 1 CAPSULE BY MOUTH ONCE DAILY Oral; Duration: 90 Days Active Veltassa 8.4 GM Packet DISSOLVE 1 PACKET IN WATER AND DRINK ONCE DAILY. TAKE ALL OTHER MEDICATIONS AT LEAST 3 HOURS BEOFRE OR 3 HOURS AFTER THIS MEDICATION Oral; Duration: 24 Days Not-Taki ng Zolpidem Tartrate 5 MG Tablet Take 1 tablet by mouth nightly; Duration: 30 11/28/2024 Active Sodium Bicarbonate 650 MG Tablet TAKE 1 TABLET BY MOUTH TWICE DAILY Oral; Duration: 90 Days Active Lovastatin 40 MG Tablet TAKE 1 TABLET BY MOUTH ONCE DAILY IN THE EVENING Oral; Duration: 90 Days Active Vilazodone HCl 40 MG Tablet 1 tablet with food Oral Once a day; Duration: 90 days Active buPROPion HCl ER (XL) 300 MG Tablet Extended Release 24 Hour 1 tablet every morning Oral Once a day; Duration: 90 days Active QUEtiapine Fumarate 25 MG Tablet 1 tablet at bedtime Orally Once a day; Duration: 90 days Active hydrOXYzine HCl 10 MG Tablet 1 tablet Oral Once a day; Duration: 30 days As needed Active Vitamin D (Ergocalciferol) 1.25 MG (77821 UT) Capsule TAKE 1 CAPSULE BY MOUTH ONCE A WEEK ON THURSDAY Oral; Duration: 84 Days Active Lisinopril 20 MG Tablet TAKE 1 TABLET BY MOUTH ONCE DAILY Oral; Duration: 90 Days Active Calcitriol 0.25 MCG Capsule TAKE 1 CAPSULE BY MOUTH ONCE DAILY Oral; Duration: 90 Days Active Immunizations Vaccine Route Administration Date Status Comme nts Pneumococcal polysaccharide PPV23 Unknown 03/02/2018 Ad ministered Novel [id number], preservative free Unknown 11/20/2016 Administered Novel [id number], preservative free Unknown 12/15/2018 Administered Novel [id number], preservative free Unknown 01/09/2020 Administered Moderna Covid-19 Vaccine 1st dose Unknown 11/20/2020 Ad ministered Influenza, seasonal, injecta ble, preservative free, 3 yrs and above Unknown 11/17/2013 Administered Influenza virus vaccine, quadrivalent (IIV4), split virus, 0.25 mL dosage Unknown 12/11/2017 Administered Influenza virus vaccine, quadrivalent (IIV4), split virus, 0.25 mL dosage Unknown 01/05/2019 Administered Influenza (split), preservat soah free, 6-35 months Unknown 12/21/2016 Administered Social History Tobacco Use: Social History Observation Description Date Details (start date - stop date) Former Smoker NA - NA Sex Assigned At : Social History Observation Description Sex Assigned At Female Social History Miscellaneous: Social Info Question Answer Notes Advance Care Planning Are you your own decision-maker Yes Do you have Power of Tight Rope Walker for Health or [facility]? 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 Living situation: Lives With A New Puppy Hobbies: Interested In [employer]; Researching On [employer] Problems Problem Type SNOMED Code ICD Code Onset Dates Problem Status W/U Status Risk Notes Problem Malignant neoplasm of colon (446744569) Malignant neoplasm of colon, unspecified (C18.9) 1 Active confirmed Problem Iron deficiency anemia (67625411) Iron deficiency anemia, unspecified (D50.9) Active confirmed Problem Anemia (026064376) Anemia, unspecified (D64.9) 2 Active confirmed Problem Hyperlipidemia (59232328) Hyperlipidemia, unspecified (E78.5) 1 Active confirmed Problem Severe recurrent major depression without psychotic features (06080769) Major depressive disorder, recurrent severe without psychotic features (F33.2) 4 Active confirmed Problem Generalized anxiety disorder (06540507) Generalized anxiety disorder (F41.1) 4 Active confirmed Problem Primary insomnia (0323351) Primary insomnia (F51.01) 4 Active confirmed Problem Gastro-esophageal reflux disease without esophagitis (269773099) Gastro-esophage al reflux disease without esophagitis (K21.9) 4 Active confirmed Problem Iron deficiency anemia (58953456) Iron deficiency anemia (D50.9) 6 Active confirmed Vital Signs Heart Rate 85 /min 10/14/2024 Height-cm 167.64 cm 10/14/2024 Blood pressure diastolic 78 mm Hg 10/14/2024 Weight-kg 89.36 kg 10/14/2024 Height 66.00 in 10/14/2024 Blood pressure systolic 136 mm Hg 10/14/2024 Weight 197 lbs 10/14/2024 BMI 31.79 kg/m2 10/14/2024 Encounters Encounter Location Date Provider Diagnosis [facility] [address] [address] 01/08/2024 Bassam Jefry Generalized anxiety disorder F41.1 ; Major depressive disorder, recurrent severe without psychotic features F33.2 ; Gastro-esophageal reflux disease without esophagitis K21.9 and Primary insomnia F51.01 [facility] [address] [address] 06/22/2024 Bassam Jefry Generalized anxiety disorder F41.1 ; Malignant neoplasm of colon, unspecified C18.9 ; Hyperlipidemia, unspecified E78.5 ; Iron deficiency anemia D50.9 ; Major depressive disorder, recurrent severe without psychotic features F33.2 ; Gastro-esophageal reflux disease without esophagitis K21.9 ; Primary insomnia F51.01 ; Encounter for screening for depression Z13.31 and Encounter for screening for cardiovascular disorders Z13.[address] [address] 10/14/2024 Bassam Jefry Generalized anxiety disorder F41.1 ; Malignant neoplasm of colon, unspecified C18.9 ; Hyperlipidemia, unspecified E78.5 ; Iron deficiency anemia D50.9 ; Major depressive disorder, recurrent severe without psychotic features F33.2 ; Gastro-esophageal reflux disease without esophagitis K21.9 ; Primary insomnia F51.01 and Iron deficiency anemia, unspecified D50.[address] [address] 06/22/2024 Bassam Jefry Generalized anxiety disorder F41.[address] [address] 07/28/2024 Bassam Jefry [address] [address] 06/24/2024 Bassam Jefry Generalized anxiety disorder F41.1 Assessments Encounter Date Diagnosis (ICD Code) Assessment Notes Treatment Notes Treatment Clinical Notes Section Notes 06/24/2024 Generalized anxiety disorder (ICD-10 - F41.1) Electronic Prior Authorization was requested for hydrOXYzine HCl 10 MG Tablet. Provider can order medication once approval received. 10/14/2024 Generalized anxiety disorder (ICD-10 - F41.1) 06/22/2024 Generalized anxiety disorder (ICD-10 - F41.1) 06/22/2024 Malignant neoplasm of colon, unspecified (ICD-10 - C18.9) 06/22/2024 Hyperlipidemia, unspecified (ICD-10 - E78.5) 06/22/2024 Generalized anxiety disorder (ICD-10 - F41.1) 06/22/2024 Iron deficiency anemia (ICD-10 - D50.9) 01/08/2024 Major depressive disorder, recurrent severe without [...] - Plan: - Confirm quetiapine coverage with [facility]. - Schedule a follow-up appointment in [...] - Plan: - Confirm quetiapine coverage with [facility]. - Schedule a follow-up appointment in 3 months. - Patient may call to extend the prescription if doing well on quetiapine. Hypertension - Plan: - No intervention needed at this time. Recent Loss - Plan: - Continue current treatment as patient reports coping well with recent loss. 01/08/2024 Gastro-esophageal reflux disease without esophagitis (ICD-10 - K21.9) [...] - Plan: - Confirm quetiapine coverage with [facility]. - Schedule a follow-up appointment in 3 months. - Patient may call to extend the prescription if doing well on quetiapine. Hypertension - Plan: - No intervention needed at this time. Recent Loss - Plan: - Continue current treatment as patient reports coping well with recent loss. 06/22/2024 Major depressive disorder, recurrent severe without psychotic features (ICD-10 - F33.2) 10/14/2024 Malignant neoplasm of colon, unspecified (ICD-10 - C18.9) 10/14/2024 Hyperlipidemia, unspecified (ICD-10 - E78.5) 06/22/2024 Gastro-esophageal reflux disease without esophagitis (ICD-10 - K21.9) 01/08/2024 Primary insomnia (ICD-10 - F51.01) depression [...] - Plan: - Confirm quetiapine coverage with [facility]. - Schedule a follow-up appointment in 3 months. - Patient may call to extend the prescription if doing well on quetiapine. Hypertension - Plan: - No intervention needed at this time. Recent Loss - Plan: - Continue current treatment as patient reports coping well with recent loss. 06/22/2024 Primary insomnia (ICD-10 - F51.01) 10/14/2024 Iron deficiency anemia (ICD-10 - D50.9) 10/14/2024 Gastro-esophageal reflux disease without esophagitis (ICD-10 - K21.9) 10/14/2024 Major depressive disorder, recurrent severe without psychotic features (ICD-10 - F33.2) Patient reports mood, depression, and anxiety are stable. No current symptoms of depression or anxiety. Patient continues to experience grief after the loss of three pets within a month. She reports ongoing sadness and daily thoughts of her pets. She has adopted a new puppy to help cope. 06/22/2024 Encounter for screening for depression (ICD-10 - Z13.31) 10/14/2024 Primary insomnia (ICD-10 - F51.01) Patient reports no trouble sleeping. Current regimen appears effective for sleep. 10/14/2024 Iron deficiency anemia, unspecified (ICD-10 - D50.9) Iron deficiency anemia is stable. No new symptoms or concerns reported. 06/22/2024 Encounter for screening for cardiovascular disorders (ICD-10 - Z13.6) 06/22/2024 Other Jolie Ortega, a retired female patient with a [...] the patient is maintaining part-time employment at [employer], which provides some structure and occupation. [...] ensure accuracy, there may be errors, including float phlebotomist inaccuracies and misspellings of medication names. This document should not be considered a verbatim record, and any discrepancies should be verified with the provider. 10/14/2024 Thad Ortega, a retired female patient with a history of depression and anxiety, presents for follow-up, reporting improved mood and sleep with medication adjustment. Depression with Grief Assessment: Patient reports overall improvement in mood and functioning. She continues to experience episodes of grief related to the loss of her three pets in May, which she describes as being like losing children. The grief is persistent, with daily thoughts of her pets. The patient has adopted a new puppy, which she finds helpful in coping with her loss. She is considering taking up new hobbies such as stained glass and macrame to occupy her time. Plan: - Continue vilazodone 40 mg PO daily - Continue bupropion 300 mg PO daily - Adjust quetiapine to 25 mg PO daily (previously taking 25 mg as a quarter of a 100 mg tablet) - Continue hydroxyzine as needed for acute grief symptoms - Discontinue zolpidem (patient reports not using it) - Encourage pursuit of new hobbies as a coping mechanism Insomnia Assessment: Patient reports improved sleep with the current medication regimen. She notes feeling real good at night and during the day after reducing her quetiapine dose from 50 mg to 25 mg. Plan: - Adjust quetiapine to 25 mg PO daily - Discontinue zolpidem (patient reports not using it) Plan Of Treatment Next Appt Details Provider Name:Bassam Capps , 01/13/2025 08:30:00 AM, [address], [address], [place], [address], Insurance Providers Payer Name Payer Address Payer Phone Subscriber Number Group Number Insured Name Patient Relationship to Insured Coverage Start Date Coverage End Date [employer] Medicare Replacemen t/Advantag e - Ppo [address] [place] [address] [id number] JOLIE LOPES Self - patient is the insured Medical (General) History Medical History History ICD Code Problems: Anemia Gastroesophageal reflux disease Generalized anxiety disorder Mild neurocognitive disorder Primary insomnia Severe recurrent major depression withou t psychotic features , Iron deficiency anemia Major depressive disorder, recurrent Insomnia Surgical History Surgery Date(Month/Year) Removal of gallbladder (96983)
[2024-12-22 07:19] VITALS: BP 130/63; PULSE 99; RESP 19; TEMP 36.2; O2SAT 95; BMI 30.7
[2024-12-22] MEDS: LACTATED RINGERS 1,000 ML 150 ML IV CONT (07:34)
[2024-12-22] MEDS: SIMETHICONE ORAL SUSPENSION 20 MG/0.3 ML 30 ML BOTTLE 1.8 ML PO (07:36)
--- NOTE | 2024-12-22 08:27 | PM.IMHP ---
H&P: HPI History of Present Illness Date/Time: 12/22/24 08:27 Chief Complaint: GERD-history of colon cancer Narrative: the patient suffers from GERD for several years, exacerbated over the past year, having daily episodes of heartburn and sometimes regurgitation. Partially controlled with esomeprazole. In addition, in 1998 the patient had a sigmoid resection for colorectal cancer. She is due for her surveillance colonoscopy. We will perform EGD and colonoscopy today. Review of Systems Review of Systems: All systems reviewed & are unremarkable except as noted in HPI and below PMFSH Past Medical History Medical History MEY (iron deficiency anemia) Anemia Long-term current use of benzodiazepine Obesity Depression Anxiety Gastroparesis Hyperlipidemia Hypertension Diaz's esophagus with dysplasia Bipolar 1 disorder Body mass index (BMI) 35.0-35.9, adult (07/13/17) Chronic kidney disease, stage 3 (moderate) Current moderate episode of major depressive disorder without prior episode Essential hypertension GERD without esophagitis Gastroparesis diabeticorum Hiatal hernia History of colon cancer Mixed hyperlipidemia Type 2 diabetes mellitus with stage 3 chronic kidney disease Surgical History Surgical History History of bowel resection History of colonoscopy History of endoscopy Family History Family History Mother Diabetes mellitus Hypertension Family history of lung cancer, Onset Age: 85 Patient's mother is Family history of type 2 diabetes mellitus Sibling Diabetes mellitus Family history of suicide Father Family history of malignant neoplasm of esophagus, Onset Age: 80 Patient's father is Other Depression Social History Social History Smoking packs per day: 1 Smoking cigarettes per day: 20.0 Years smoked: 30 Smoking pack-years: 30.00 Smoking status: Former smoker Tobacco type: cigarettes Second hand tobacco smoke exposure: No Smoking end date: 06/04/06 Alcohol intake: never Substance use: never Substance use type: marijuana Other substance usage details: Quit marijuana 10/2024 Do You Feel Safe in your Home?: Yes Lack of Transportation: No Lack of Food: Never True Current Housing: I Have Housing Concerned About Future Housing: No Difficulty Paying Gas/Electric Bills: No Difficulty Paying for Meds: No Currently Unemployed: No Education: High School Diploma/GED Difficulty w/ Childcare or Family Care: No Living arrangements: with family Gender identity (if verbalized by the patient): Female Spiritual care concerns: No Meds Home Medications and Allergies Home Medications ?Medication ?Instructions ?Recorded ?Confirmed ?Type lovastatin 40 mg tablet See Rx Instructions .Route 05/29/20 12/22/24 Rx .COMPLEX #90 tabs zolpidem 5 mg tablet 5 mg PO HS PRN Sleep #30 tabs 06/11/20 12/09/24 Rx bupropion HCl 300 mg 24 hr tablet, 300 mg PO QAM 06/08/23 12/22/24 History extended release calcitriol 0.25 mcg capsule 0.25 mcg PO DAILY 06/08/23 12/22/24 History acetaminophen 500 mg capsule 1,000 mg PO Q6H PRN Pain 08/18/23 12/09/24 History hydroxyzine HCl 10 mg tablet 10 mg PO DAILY PRN Anxiety 08/18/23 12/09/24 History lisinopril 20 mg tablet 20 mg PO QAM 08/18/23 12/09/24 History esomeprazole magnesium 40 mg 40 mg PO DAILY 09/10/23 12/22/24 History capsule,delayed release ascorbate calcium (vitamin C) 500 500 mg PO DAILY 01/25/24 12/22/24 History mg tablet ferrous sulfate 325 mg (65 mg 325 mg PO DAILY 01/25/24 12/22/24 History iron) tablet quetiapine 100 mg tablet 100 mg PO DAILY 01/25/24 12/22/24 History sodium bicarbonate 650 mg tablet 650 mg PO BID #180 tabs 03/11/24 12/22/24 Rx ergocalciferol (vitamin D2) 1,250 1,250 mcg PO WEEKLY #12 caps 07/18/24 12/22/24 Rx mcg (50,000 unit) capsule Allergies Allergy/AdvReac Type Severity Reaction Status Date / Time diphenhydramine (From AdvReac Jittery Verified 12/22/24 07:18 Benadryl) Vital Signs Vital Signs - 24 hr 12/22/24 07:19 Temperature 97.2 F L Pulse Rate 99 Respiratory Rate 19 Blood Pressure 130/63 Pulse Oximetry 95 Oxygen Delivery Room Air Exam Const: General: cooperative and healthy appearing Resp: Effort & Inspection: normal respiratory effort and able to speak in complete sentences Auscultation: clear to auscultation bilaterally Cardio: Rate: regular rate Rhythm: regular rhythm GI: Inspection: normal to inspection GI Palp: No No hepatosplenomegaly present Auscultation: normal bowel sounds Rectal Exam: deferred Skin: General skin exam: normal color Psych: Appearance: grossly normal Mental Status: mental status grossly normal Assessment and Plan Assessment and plan (1) History of colon cancer: Code(s): Z85.038 - Personal history of other malignant neoplasm of large intestine Status: Acute Assessment and Plan: The patient is deemed a good candidate for the procedure. Consent signed. Will proceed. (2) GERD without esophagitis: Code(s): K21.9 - Gastro-esophageal reflux disease without esophagitis Status: Acute
--- NOTE | 2024-12-22 08:32 | WPDANESEPPF ---
Anes - Initial Pre Proc Eval Procedure: Operation Date: 12/22/24 08:30 Proposed Procedures p EGD & Screening Colonoscopy - Andi Rubio MD Date/Time: 12/22/24 08:32 Surgeon: Andi Rubio MD Pre Op Diagnosis: GERD/SCREENING/PERSONAL HX COLON CANCER Patient Data Age: 69 Gender: F Height: 1.65 m Weight: 83.8 kg Last Vital Signs Temp 36.2 C L 12/22/24 07:19 Pulse 99 12/22/24 07:19 Resp 19 12/22/24 07:19 BP 130/63 12/22/24 07:19 Pulse Ox 95 12/22/24 07:19 O2 Del Method Room Air 12/22/24 07:19 Allergies Allergy/AdvReac Type Severity Reaction Status Date / Time diphenhydramine (From AdvReac Jittery Verified 12/22/24 07:18 Benadryl) Home Medications ?Medication ?Instructions ?Recorded ?Confirmed ?Type lovastatin 40 mg tablet See Rx Instructions .Route 05/29/20 12/22/24 Rx .COMPLEX #90 tabs zolpidem 5 mg tablet 5 mg PO HS PRN Sleep #30 tabs 06/11/20 12/09/24 Rx bupropion HCl 300 mg 24 hr tablet, 300 mg PO QAM 06/08/23 12/22/24 History extended release calcitriol 0.25 mcg capsule 0.25 mcg PO DAILY 06/08/23 12/22/24 History acetaminophen 500 mg capsule 1,000 mg PO Q6H PRN Pain 08/18/23 12/09/24 History hydroxyzine HCl 10 mg tablet 10 mg PO DAILY PRN Anxiety 08/18/23 12/09/24 History lisinopril 20 mg tablet 20 mg PO QAM 08/18/23 12/09/24 History esomeprazole magnesium 40 mg 40 mg PO DAILY 09/10/23 12/22/24 History capsule,delayed release ascorbate calcium (vitamin C) 500 500 mg PO DAILY 01/25/24 12/22/24 History mg tablet ferrous sulfate 325 mg (65 mg 325 mg PO DAILY 01/25/24 12/22/24 History iron) tablet quetiapine 100 mg tablet 100 mg PO DAILY 01/25/24 12/22/24 History sodium bicarbonate 650 mg tablet 650 mg PO BID #180 tabs 03/11/24 12/22/24 Rx ergocalciferol (vitamin D2) 1,250 1,250 mcg PO WEEKLY #12 caps 07/18/24 12/22/24 Rx mcg (50,000 unit) capsule Patient hx anesthesia problems: none Family hx anesthesia problems: none Results Review: All pre-operative results and documents have been reviewed as part of the pre-operative evaluation. COUNTS INCLUDE 234 BEDS AT THE [facility] Past Medical History Medical History MEY (iron deficiency anemia) Anemia Long-term current use of benzodiazepine Obesity Depression Anxiety Gastroparesis Hyperlipidemia Hypertension Diaz's esophagus with dysplasia Bipolar 1 disorder Body mass index (BMI) 35.0-35.9, adult (07/13/17) Chronic kidney disease, stage 3 (moderate) Current moderate episode of major depressive disorder without prior episode Essential hypertension GERD without esophagitis Gastroparesis diabeticorum Hiatal hernia History of colon cancer Mixed hyperlipidemia Type 2 diabetes mellitus with stage 3 chronic kidney disease Surgical History Surgical History History of bowel resection History of colonoscopy History of endoscopy Family History Family History Mother Diabetes mellitus Hypertension Family history of lung cancer, Onset Age: 85 Patient's mother is Family history of type 2 diabetes mellitus Sibling Diabetes mellitus Family history of suicide Father Family history of malignant neoplasm of esophagus, Onset Age: 80 Patient's father is Other Depression Social History Social History Smoking packs per day: 1 Smoking cigarettes per day: 20.0 Years smoked: 30 Smoking pack-years: 30.00 Smoking status: Former smoker Tobacco type: cigarettes Second hand tobacco smoke exposure: No Smoking end date: 06/04/06 Alcohol intake: never Substance use: never Substance use type: marijuana Other substance usage details: Quit marijuana 10/2024 Do You Feel Safe in your Home?: Yes Lack of Transportation: No Lack of Food: Never True Current Housing: I Have Housing Concerned About Future Housing: No Difficulty Paying Gas/Electric Bills: No Difficulty Paying for Meds: No Currently Unemployed: No Education: High School Diploma/GED Difficulty w/ Childcare or Family Care: No Living arrangements: with family Gender identity (if verbalized by the patient): Female Spiritual care concerns: No Anes - Eval Final PreProcedure Day of Procedure 12/22/24 08:32 Patient weight: obese Heart: regular rate and rhythm Lungs: normal air movement Airway: Mallampati scale class II Neurological: alert and oriented Last oral intake: >/= 8 hours ASA classification: III Emergent: no Anesthetic plan: proceed Anesthesia type and monitoring: general GIVS and standard monitoring Results Review: All pre-operative results and documents have been reviewed as part of the pre-operative evaluation. Informed Consent: The patient's anesthetic plan and its attendant risks and benefits were discussed with the patient/family/POA. Questions were solicited and answers provided to the satisfaction of the patient/family/POA.
--- NOTE | 2024-12-22 08:48 | SUR.OPER ---
EGD ended 842 Colonoscopy started 848
--- NOTE | 2024-12-22 08:51 | S_PTH ---
PATIENT: Nichole Olivares LOC: [facility] [place]#:[id number] AGE/SX: 69/F ROOM: RE12/22/[address]: Andi Rubio MD : 1955 BED: DIS: 12/22/2024 SPEC #: [id number] RECD: 12/22/24 10:01 STATUS: ART RE #: [id number] EZEQUIEL: 12/22/24 08:[address]: Andi Rubio DEPT: [facility] Surgical RECD BY: Kassandra Aldana MLT, ([facility]) ENTERED: 12/22/24 10:03 SP TYPE: Surgical OTHR DR: Perico Cardona, Tissues: A - Gastric Biopsy B - Gastric Biopsy Procedures: Hematoxylin and Eosin Stain Gross and Microscopic Level 4
[2024-12-22] MEDS: SIMETHICONE ORAL SUSPENSION 20 MG/0.3 ML 30 ML BOTTLE 0.6 ML IRRIGATION (09:01)
[2024-12-22 09:05] VITALS: BP 92/44; PULSE 74; RESP 17; O2SAT 100
[2024-12-22 09:15] VITALS: BP 108/57; PULSE 75; RESP 17; O2SAT 100
[2024-12-22 09:25] VITALS: BP 114/56; PULSE 73; RESP 18; O2SAT 100
== END 2024-12-22 09:28 | disposition home or self-care (01) ==
PROVIDERS: PCP Internal Medicine; Visit Provider Internal Medicine Gastroenterology
PROC: 0DJ08ZZ Inspection of Upper Intestinal Tract, Via Natural or Artificial Opening Endoscopic (ICD-10-PCS; CPT 45378; principal; 2024-12-22 08:30)
DX: Z12.11 Encounter for screening for malignant neoplasm of colon (principal); K64.8 Other hemorrhoids; K29.30 Chronic superficial gastritis without bleeding; K44.9 Diaphragmatic hernia without obstruction or gangrene; K21.9 Gastro-esophageal reflux disease without esophagitis; D50.9 Iron deficiency anemia, unspecified; E11.22 Type 2 diabetes mellitus with diabetic chronic kidney disease; I12.9 Hypertensive chronic kidney disease with stage 1 through stage 4 chronic kidney disease, or unspecified chronic kidney disease; N18.30 Chronic kidney disease, stage 3 unspecified; E78.2 Mixed hyperlipidemia; F41.9 Anxiety disorder, unspecified; F33.1 Major depressive disorder, recurrent, moderate; E66.9 Obesity, unspecified; Z68.30 Body mass index [BMI] 30.0-30.9, adult; Z98.0 Intestinal bypass and anastomosis status; Z90.49 Acquired absence of other specified parts of digestive tract; Z87.891 Personal history of nicotine dependence; Z85.038 Personal history of other malignant neoplasm of large intestine; Z80.1 Family history of malignant neoplasm of trachea, bronchus and lung; Z80.0 Family history of malignant neoplasm of digestive organs
CPT/HCPCS: 43239; G0105; 88305; J2003; J2704; J7120

== ENCOUNTER 2025-01-23 12:35 | Outpatient (CLI) | payer MEDICARE, SELFPAY ==
--- OUTSIDE RECORDS SUMMARY | 2000-12-28 03:00 | XMS_ITS | Continuity of Care Document ---
Author Organization [facility] Address [address] [place] [address] Phone Care Team Providers Care Forklift Technician Name Role Phone Braxton David DO Unavailable Unavailable Advance Directives Directive Yes / No Effective Date File Name No Information Encounters Encounter Description Practice Location Reason(s) For Visit Diagnoses Date Provider Providers Copied on Encounter [facility], [address], [place], [place], [id number], [place] tel:[phone] [facility] No Information Joann Velez. [address] [place], [address], [place]. tel: [phone] Family History Family Member Type Diagnosis Age At Onset No Information Payers Payer name Insurance type Covered republican ID Authoriza tion(s) No Information Social History Type Description Quantity Date Captured Comments Sex Female Smoking Status No Information Chief Complaint And Reason For Visit No Information Reason For Referral Reason For Referral No Information History Of Present Illness Encounter Date Complaint History Of Prese nt Illness No Information Functional Status Date Functional Assessmen t No Information Instructions Date Instruction Additional Infor mation No Information Assessments Type Assessment Date No Information Patient Care Teams Name Effective Dates (start - stop) Status Members No Information
--- OUTSIDE RECORDS SUMMARY | 2025-01-23 13:46 | XMS_ITS | Clinical Summary ---
Author Organization [facility] Address [address] [place] [address] Care Team Providers Care Director Of Mechanical Engineering Name Role Phone Unavailable Primary Care Provider Unavailabl e Source Comments [facility],non-owned Affiliates and Associated Physician Practices is amultiple site organization consisting of ambulatory clinics and hospital sitesin [place], [place], [place] and [place]. This disclosure is being madepursuant to the Care Everywhere program and may not contain all information available regarding this patient. Last updated 17.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 Gender Identity Not on file Sexual Orientation [...] patient's age to complete this topic Insurance [employer] A[employer]NA MEDICARE ADV SELF PAY NO INSURANCE Member Subscriber Plan / Payer (Ef fective for All Dates) Name:Jolie Ortega Member ID:Not on file Relation to Subscriber:Not on file Name:JOLIE ORTEGA Subscriber ID:Not on file (Home) Address: [address] [place] [address] Payer ID:Not on file Group ID:Not on file Type:Self Pay Address: [place], [place] * Guarantor: JOLIE ORTEGA Account Type Relation to Patient Date of Phone Billing Address Personal/Family [address] [place] [address] AETNA MEDICARE ADV SELF PAY NO INSURANCE Member Subscriber Plan / Payer (Ef fective for All Dates) Name:Jolie Ortega Member ID:Not on file Relation to Subscriber:Not on file Name:JOLIE ORTEGA Subscriber ID:Not on file Address: [address] [place] [address] Payer ID:Not on file Group ID:Not on file Type:Self Pay Address: [place], [place] * Guarantor: JOLIE ORTEGA Account Type Relation to Patient Date of Phone Billing Address Personal/Family [address] [place] [address] AETNA MEDICARE ADV SELF PAY NO INSURANCE Member Subscriber Plan / Payer (Ef fective for All Dates) Name:Jolie Ortega Member ID:Not on file Relation to Subscriber:Not on file Name:JOLIE ORTEGA Subscriber ID:Not on file Address: [address] [place] [id number] Payer ID:Not on file Group ID:Not on file Type:Self Pay Address: [place], [place] * Guarantor: JOLIE ORTEGA Relation to Patient Date of Phone Billing Address Personal/Family [address] [place] [address] AETNA MEDICARE ADV SELF PAY NO INSURANCE Member Subscriber Plan / Payer (Ef fective for All Dates) Name:Jolie Ortega Member ID:Not on file Relation to Subscriber:Not on file Name:JOLIE ORTEGA Subscriber ID:Not on file Address: [address] [place] [address] Payer ID:Not on file Group ID:Not on file Type:Self Pay Address: [place], [place]
--- OUTSIDE RECORDS SUMMARY | 2025-01-23 13:46 | XMS_ITS | Clinical Summary ---
Author Organization [facility] Address [address] [place] [address] Care Team Providers Care Grain Manager Name Role Phone Perico Cardona MD Primary Care Provider [phone] Allergies Active Allergy Reactions Criticality Noted Date [...] Department Care Team Description 11/07/2024 Orders Only [facility] Oncology and Hematology - [place] [address] [place] [address] Robbi Petit MD Chronic anemia 10/24/2024 Orders Only [facility] Oncology and Hematology - [place] [address] [place] [address] Robbi Petit MD Chronic anemia from Last [...] on file Legal 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
--- OUTSIDE RECORDS SUMMARY | 2025-01-23 13:46 | XMS_ITS | Patient Health Record ---
Author Organization [facility] Address [address] [place] [address] Reason For Referral No Information Medications Medication SIG (Take, Route, Frequency, Duration) Notes Start Date End Date Status Sodium Bicarbonate 650 MG Take 1 tablet by mouth twice daily; Duration: 90 Active Calcitriol 0.25 MCG Take 1 capsule by mo [facility] once daily; Duration: 90 Active Veltassa 8.4 [...] Status W/U Status Risk Notes Problem Anemia (483762910) Anemia, unspecified (D64.9) Active confirmed Problem Hyperlipidemia (92089939) Hyperlipidemia, unspecified (E78.5) Active confirmed Problem Hypo-osmolality and or hyponatremia (481791339) Hypo-osmolality and hyponatremia (E87.1) Active confirmed Problem Anxiety disorder (273168867) Anxiety disorder, unspecified (F41.9) Active confirmed Problem Chronic kidney disease stage 3 (disorder) (678467991) Chronic kidney disease, stage 3 unspecified (N18.30) Active confirmed Plan Of Treatment Pending Test Test Name Order Date Ultrasound : Retroperitoneal 07/29/2021
--- OUTSIDE RECORDS SUMMARY | 2025-01-23 13:47 | XMS_ITS | Patient Health Record ---
Author Organization [facility] Address [address] [place] [address] Care Team Providers Care Gear And Spline Grinder Name Role Phone Perico Cardona MD Primary Care Provider Unavail able Bassam Capps Unavailable [phone] Brynn Kenney Unavailable [phone] Allergies No Known Allergies Reason For Referral No Information Medications Medication SIG (Take, Route, Frequency, Duration) Notes Start Date End Date Status Zolpidem Tartrate 5 MG Tablet 1 tablet at bedtime as needed Orally Once a day; Duration: 30 days 01/13/2025 02/12/2025 Active QUEtiapine Fumarate 25 MG Tablet TAKE 1 TABLET BY MOUTH ONCE DAILY AT BEDTIME Oral Once a day; Duration: 30 days Active buPROPion HCl ER (XL) 300 MG Tablet Extended Release 24 Hour 1 tablet every morning Oral Once a day; Duration: 30 days Active Calcitriol 0.25 MCG Capsule TAKE 1 CAPSULE BY MOUTH ONCE DAILY Oral; Duration: 90 Days Active Vilazodone HCl 40 MG Tablet TAKE 1 TABLET BY MOUTH ONCE DAILY WITH FOOD FOR 90 DAYS; Duration: 90 Not-Taking hydrOXYzine HCl 10 MG Tablet 1 tablet Oral Once a day; Duration: 90 days 06/29/2024 Active Lovastatin 40 MG Tablet TAKE 1 TABLET BY MOUTH ONCE DAILY IN THE EVENING Oral; Duration: 90 Days Active Veltassa 8.4 GM Packet DISSOLVE 1 PACKET IN WATER AND DRINK ONCE DAILY. TAKE ALL OTHER MEDICATIONS AT LEAST 3 HOURS BEOFRE OR 3 HOURS AFTER THIS MEDICATION Oral; Duration: 24 Days Not-Taking Sodium Bicarbonate 650 MG Tablet TAKE 1 TABLET BY MOUTH TWICE DAILY Oral; Duration: 90 Days Active Esomeprazole Magnesium 40 MG Capsule Delayed Release TAKE 1 CAPSULE BY MOUTH ONCE DAILY Oral; Duration: 90 Days Active hydrOXYzine HCl 10 MG Tablet 1 tablet Oral Once a day; Duration: 30 days As needed Active Vilazodone HCl 40 MG Tablet 1 tablet with food Oral Once a day; Duration: 30 days Active Lisinopril 20 MG Tablet TAKE 1 TABLET BY MOUTH ONCE DAILY Oral; Duration: 90 Days Active Vitamin D (Ergocalciferol) 1.25 MG (93499 UT) Capsule TAKE 1 CAPSULE BY MOUTH ONCE A WEEK ON THURSDAY Oral; Duration: 84 Days Active Immunizations Vaccine Route Administration Date [...] 1st dose Unknown 11/20/2020 Ad ministered Novel [id number], preservative free Unknown 11/20/2016 Administered Novel [id number], preservative free Unknown 12/15/2018 Administered Novel [id number], preservative free Unknown 01/09/2020 Administered Pneumococcal polysaccharide [...] decision-maker Yes Do you have Power of Benefits Coordinator for Health or Medi estee? 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 Living situation: Lives With A New Puppy Hobbies: Interested In Stained Glass And Macrame; Researching On YouTube Problems Problem Type SNOMED Code ICD Code Onset Dates Problem Status W/U Status Risk Notes Problem Malignant neoplasm of colon (265025806) Malignant neoplasm of colon, unspecified (C18.9) 1 Active confirmed Problem Iron deficiency anemia (48626531) Iron deficiency anemia, unspecified (D50.9) Active confirmed Problem Anemia (846264191) Anemia, unspecified (D64.9) 2 Active confirmed Problem Hyperlipidemia (67275312) Hyperlipidemia, unspecified (E78.5) 1 Active confirmed Problem Severe recurrent major depression without psychotic features (46170110) Major depressive disorder, recurrent severe without psychotic features (F33.2) 4 Active confirmed Problem Generalized anxiety disorder (44047922) Generalized anxiety disorder (F41.1) 4 Active confirmed Problem Primary insomnia (3082318) Primary insomnia (F51.01) 4 Active confirmed Problem Gastro-esophageal reflux disease without esophagitis (121228250) Gastro-esophage al reflux disease without esophagitis (K21.9) 4 Active confirmed Problem Iron deficiency anemia (52359840) Iron deficiency anemia (D50.9) 6 Active confirmed Vital Signs Heart Rate 82 /min 01/13/2025 Height-cm 167.64 cm 01/13/2025 Blood pressure diastolic 74 mm Hg 01/13/2025 Weight-kg 88.91 kg 01/13/2025 Height 66.00 in 01/13/2025 Blood pressure systolic 128 mm Hg 01/13/2025 Weight 196 lbs 01/13/2025 BMI 31.63 kg/m2 01/13/2025 Encounters Encounter Location Date Provider Diagnosis [facility] [address] [address] 06/22/2024 Bassam Capps Generalized anxiety disorder F41.1 ; Malignant neoplasm of colon, unspecified C18.9 ; Hyperlipidemia, unspecified E78.5 ; Iron deficiency anemia D50.9 ; Major depressive disorder, recurrent severe without psychotic features F33.2 ; Gastro-esophageal reflux disease without esophagitis K21.9 ; Primary insomnia F51.01 ; Encounter for screening for depression Z13.31 and Encounter for screening for cardiovascular disorders Z13.6 [place] [id number] [facility] [address] [place] [address] 10/14/2024 Bassam Jefry Generalized anxiety disorder F41.1 ; Malignant neoplasm of colon, unspecified C18.9 ; Hyperlipidemia, unspecified E78.5 ; Iron deficiency anemia D50.9 ; Major depressive disorder, recurrent severe without psychotic features F33.2 ; Gastro-esophageal reflux disease without esophagitis K21.9 ; Primary insomnia F51.01 and Iron deficiency anemia, unspecified D50.9 [place] [address] [address] 01/13/2025 Brynn Kenney Major depressive disorder, recurrent severe without psychotic features F33.2 ; Primary insomnia F51.01 and Generalized anxiety disorder F41.1 [place] [address] [address] 06/22/2024 Bassam Jefry Generalized anxiety disorder F41.1 [place] [address] [address] 07/28/2024 Bassam Jefry [address] [address] 06/24/2024 Bassam Jefry Generalized anxiety disorder F41.1 Assessments Encounter Date Diagnosis (ICD Code) Assessment Notes Treatment Notes Treatment Clinical Notes Section Notes 06/24/2024 Generalized anxiety disorder (ICD-10 - F41.1) Electronic Prior Authorization was requested for hydrOXYzine HCl 10 MG Tablet. Provider can order medication once approval received. 01/13/2025 Major depressive disorder, recurrent severe without psychotic features (ICD-10 - F33.2) Patient reports persistent low mood, described as 'always down a little bit'. Mood appears positively influenced by increased activity and responsibility caring for three dogs, including a new puppy. No acute worsening of depressive symptoms reported. - Refilled Wellbutrin 300 mg. - Refilled Seroquel 25 mg. - Refilled Hydroxyzine 10 mg. - Continue current medication regimen. 01/13/2025 Primary insomnia (ICD-10 - F51.01) Patient reports sleep is stable, getting 6 to 8 hours nightly. No acute sleep disturbance reported. - Continue current sleep management regimen. - Continue Zolpidem 10/14/2024 Generalized anxiety disorder (ICD-10 - F41.1) 06/22/2024 Iron deficiency anemia (ICD-10 - D50.9) 06/22/2024 Generalized anxiety disorder (ICD-10 - F41.1) 06/22/2024 Malignant neoplasm of colon, unspecified (ICD-10 - C18.9) 06/22/2024 Hyperlipidemia, unspecified (ICD-10 - E78.5) 06/22/2024 Generalized anxiety disorder (ICD-10 - F41.1) 06/22/2024 Major depressive disorder, recurrent severe without psychotic features (ICD-10 - F33.2) 10/14/2024 Malignant neoplasm of colon, unspecified (ICD-10 - C18.9) 01/13/2025 Generalized anxiety disorder (ICD-10 - F41.1) Patient explicitly denies anxiety symptoms at this visit. - Continue monitoring for anxiety symptoms. -Patient takes PRN Hydroxyzine, but states that she doesn't take it often. Continue on a PRN basis. Call for refill. 10/14/2024 Hyperlipidemia, unspecified (ICD-10 - E78.5) 06/22/2024 Gastro-esophageal reflux disease without esophagitis (ICD-10 - K21.9) 06/22/2024 Primary insomnia (ICD-10 - F51.01) 10/14/2024 [...] for cardiovascular disorders (ICD-10 - Z13.6) 06/22/2024 Thad Ortega, a retired female patient [...] the patient is maintaining part-time employment at [employer], which provides some structure and occupation. [...] with Dr. Cardona for scheduled cholesterol test Gastroesophageal Reflux Disease (GERD) Assessment: Patient reports that her GERD is currently stable. Plan: - Continue current GERD management Disclaimer: This note has been transcribed using speech recognition software and serves as a reflection of the patient's visit. While efforts have been made to ensure accuracy, there may be errors, including unix manager inaccuracies and misspellings of medication names. This [...] Plan Of Treatment Next Appt Details Provider Name:Brynn kumar, 04/14/2025 08:30:00 AM, [address] [facility] [address], [place], [address], Insurance Providers Payer Name Payer Address Payer Phone Subscriber Number Group Number Insured Name Patient Relationship to Insured Coverage Start Date Coverage End Date A[employer]na Medicare Replacemen t/Advantag e - Ppo [address] [place] [address] [id number] JOLIE LOPES Self - patient is the insured Medical (General) History Medical History History ICD Code Problems: Anemia Gastroesophageal reflux disease Generalized anxiety disorder Mild neurocognitive disorder Primary insomnia Severe recurrent major depression withou t psychotic features , Iron deficiency anemia Major depressive disorder, recurrent Insomnia Surgical History Surgery Date(Month/Year) Removal of gallbladder (24653)
[2025-01-23 14:26] LABS: Hematocrit 31.0 % (37.0-47.0); Hemoglobin 10.1 g/dL (12.0-15.0); Mean Corpuscular HGB Conc 32.6 g/dl (32-36); Mean Corpuscular Hemoglobin 34.8 pg (26-34); Mean Corpuscular Volume 106.9 fl (80-100); Platelet Count Result 309 k/mm3 (150-375); Red Blood Count 2.90 M/mm3 (4.2-5.4); White Blood Count 5.8 K/mm3 (4.5-10.0)
[2025-01-23 14:46] LABS: Albumin Level 4.5 g/dL (3.5-5.1); Anion Gap 9 mmol/L (4-12); Blood Urea Nitrogen 19 mg/dL (7-17); Calcium 9.3 mg/dL (8.4-10.2); Carbon Dioxide 27 mmol/L (22-30); Chloride 104 mmol/L (98-107); Estimated Glomerular Filt Rate 34; Glucose 82 mg/dL (65-110); Potassium 4.3 mmol/L (3.4-5.0); Sodium 140 mmol/L (137-145)
[2025-01-23 14:51] LABS: Total Protein Urine Random 6 mg/dL; Ur Ttl Prot Creatinine Ratio 0.07 mg/mg (0-0.20)
[2025-01-23 14:57] LABS: Parathyroid Intact 51.1 pg/mL (14.5-75.2)
== END 2025-01-23 12:36 | disposition home or self-care (01) ==
PROVIDERS: PCP Internal Medicine; Visit Provider Internal Medicine Nephrology
DX: D64.9 Anemia, unspecified (principal); N18.4 Chronic kidney disease, stage 4 (severe)
CPT/HCPCS: 36415; 80069; 82570; 83970; 84156; 85027